=== PATIENT | male | born 2000 | race Caucasian/White ===

== ENCOUNTER 2021-02-28 16:01 | Emergency (ER) | payer MEDICARE, MEDICAID, SELFPAY ==
[2021-02-28 16:05] VITALS: BP 115/64; PULSE 99; RESP 18; TEMP 36.5; O2SAT 96; BMI 32.5
--- NOTE | 2021-02-28 16:55 | ED.WOUNDLAC ---
HPI - Wound/Laceration General Chief Complaint: Wound/Laceration Stated Complaint: ?Lac to the penis Time Seen by Provider: 02/28/21 16:55 Source: patient Mode of arrival: ambulatory Limitations: no limitations History of Present Illness HPI narrative: This is a 21-year-old male past medical history significant for autism presents to the emergency department with both his parents with concerns of cut on his penis X1 hours. Parents state that patient was inside inserted screaming my penis is bleeding . Parents state that he was playing dress up at the time, however this has happened to him before, previously he had been playing with himself they are unsure what he was doing this time. Parents state that they clean area, and there was a lot of active bleeding. Onset (ago): hour(s) (1) Location: genitals Place: home Context: other (unsure ) Associated symptoms: none Related Data Allergies Allergy/AdvReac Type Severity Reaction Status Date / Time From RITALIN Allergy Intermediate RASH Uncoded 02/28/21 16:04 Review of Systems Review of Systems: Yes Unobtainable due to mental status PMFSH Past Medical History Attestation statement: The following information was validated with the patient. Source: old records reviewed and nursing notes reviewed Social History Social History Advance Directives: No Advance Directives Information Provided: No Physical Exam Vital Signs: Vital Signs: Last Vital Signs Temp 97.7 F 02/28/21 16:05 Pulse 99 02/28/21 16:05 Resp 18 02/28/21 16:05 BP 115/64 02/28/21 16:05 Pulse Ox 96 02/28/21 16:05 Body Mass Index 32.5 Appearance: Alert. Oriented X3. No acute distress. ? No accessory muscle use Head: Normal external exam. Normocephalic. Atraumatic. ? Eyes: PERRLA. EOMI. Conjunctiva and sclera normal. Eyelids normal. ? ENT: Pharynx normal. Uvula midline. Moist mucous membranes. ? No trismus noted.? No drooling noted.? No muffled voice noted. Neck: ?Soft full range of motion, no JVD CVS: ?Heart regular rate and rhythm no murmurs and rubs Respiratory: ?Breath sounds are clear to auscultation bilaterally. No wheezing or stridor.? No accessory muscle use noted. Abdomen: ?Soft nontender no rebound or guarding positive bowel sounds Male : + small 2 cm linear laceration noted to the 11 oclock position underneat the burk of the glans penis. Uncircumcised normal male penis Skin: Skin warm and dry.? Normal skin color.? Normal skin turgor. No rashes/lesions/lacerations noted. Area is not bleeding. Patient does not report pain with palpation. Extremities: No lower extremity edema. ? Extremities exhibit normal range of motion.? Extremities nontender. Neuro: Oriented X 3.? No motor deficit.? No sensory deficit.? Reflexes normal Course Reevaluation(s) Reevaluation #1: Spoke to Dr. Cardenas he states this looks old based off of the picture. He recommends mupirocin ointment, and Xeroform gauze for 48 hours. Then a thin coat of Aquaphor twice a day for 2-3 weeks. Mupirocin and Xeroform will be applied to the area at this time. I will provide the parents with referral to Dr. Cohn office. Patient is safe for discharge home with PCP and Urology follow-up. Time: 17:03 Reevaluation #2: Dr. Birch evaluated patient at the bedside. He will see them outpatient. Patient is safe for discharge home, I explained to them discharge instructions. Patient will follow-up with Urology, the patient's primary care provider. Time: 17:48 MDM - Wound/Laceration MDM Narrative Medical decision making narrative: 1700 21-year-old male past medical history significant for autism presents to the emergency department with a laceration on his penis likely status post masturbation X1 hour. Parents both at the bedside who state that this has happened before. Upon physical examination patient appears well, no acute distress. Lungs are clear to auscultation. S1-S2 appreciated free of murmurs. A small 2 cm linear laceration noted to the 11 oclock position underneat the burk of the glans penis. Uncircumcised normal male penis. Plan at this time is to reach out to Urology for advice. Dr. Cardenas Critical Care Time Critical Care Time Critical Care Time: No Discharge Plan Discharge Clinical Impression: Laceration Patient Disposition: Home, Self-Care Additional Instructions: Apply Aquaphor to the area 2 times a day for 2-3 weeks. You can find this at the pharmacy Leave the dressing on his penis for 48 hours if possible Try to provide him lubricant for the area as needed Follow-up with your primary care provider this week and Urology Return to the emergency department with new or worsening symptoms. In case of emergency call 911 Referrals: Brian Cardenas MD [Physician] - 2 days Prosper Harper MD [Primary Care Provider] - 2 days
== END 2021-02-28 18:13 | disposition home or self-care (01) ==
PROVIDERS: Emergency Provider Emergency Medicine; PCP Pediatrics
DX: S31.21XA Laceration without foreign body of penis, initial encounter (principal); W45.8XXA Other foreign body or object entering through skin, initial encounter; F98.8 Other specified behavioral and emotional disorders with onset usually occurring in childhood and adolescence; F84.0 Autistic disorder; Y93.9 Activity, unspecified; Y92.019 Unspecified place in single-family (private) house as the place of occurrence of the external cause; Y99.9 Unspecified external cause status
CPT/HCPCS: 99283

== ENCOUNTER 2021-06-17 07:41 | Outpatient (REF) | payer MEDICARE, MEDICAID, SELFPAY ==
[2021-06-17 11:27] LABS: MANUAL DIFF FLAG NO
[2021-06-17 11:37] LABS: Basophils Percent Auto 0.6 % (0-2); Eosinophils Absolute Auto 0.2 X10*3/uL (0.0-0.4); Eosinophils Percent Auto 2.4 % (0-4); Hematocrit 48.6 % (42.0-52.0); Hemoglobin 16.4 g/dl (14.0-18.0); Imm Gran Abs Auto 0.05 X10*3/uL (0.00-0.03); Imm Gran Pct Auto 0.7 % (0.0-0.4); Lymphocytes Absolute Auto 2.6 X10*3/uL (1.2-4.9); Lymphocytes Percent Auto 36.7 % (20-40); Mean Corpuscular HGB Conc 33.7 g/dl (31.0-36.0); Mean Corpuscular Hemoglobin 29.5 pg (27.0-33.0); Mean Corpuscular Volume 87.4 fL (80.0-98.0); Mean Platelet Volume 10.7 fL (9.4-12.4); Monocytes Absolute Auto 0.5 X10*3/uL (0.1-1.2); Monocytes Percent Auto 7.1 % (2-11); Neutrophils Absolute Auto 3.7 x10*3/uL (2.0-8.3); Neutrophils Percent Auto 52.5 % (45-73); Platelet Count 217 X10*3/uL (160-400); Red Blood Count 5.56 X10*6/uL (4.60-5.80); Red Cell Distribution Width 11.8 % (11.0-16.0); White Blood Count 7.1 X10*3/uL (4.8-10.8)
[2021-06-17 12:17] LABS: Alanine Aminotransferase 53 U/L (0-40); Anion Gap 11 (12-20); Aspartate Amino Transferase 27 U/L (5-37); Blood Urea Nitrogen 10 mg/dL (9-16); Calcium 9.9 mg/dL (8.4-10.2); Carbon Dioxide 28 mmol/L (22-29); Chloride 106 mmol/L (96-108); Cholesterol 148 mg/dL; Estimated Glomerular Filt Rate > 60; Glucose Fasting 92 mg/dL (60-99); HDL Cholesterol 30 mg/dL; LDL Cholesterol Calculated 87 mg/dl; Potassium 4.7 mmol/L (3.3-5.1); Sodium 140 mmol/L (135-145); Triglycerides 159 mg/dL
== END 2021-06-17 07:42 | disposition home or self-care (01) ==
LOC: HO.HMGCLDS 07:41
PROVIDERS: Visit Provider Internal Medicine
DX: Z00.01 Encounter for general adult medical examination with abnormal findings (principal); F41.1 Generalized anxiety disorder; F41.0 Panic disorder [episodic paroxysmal anxiety]; E78.1 Pure hyperglyceridemia
CPT/HCPCS: 36415; 80048; 80061; 84450; 84460; 85025

== ENCOUNTER → 2021-08-07 08:38 | Outpatient (BNVA) | payer MEDICARE, MEDICAID, SELFPAY | PROVIDERS: PCP Internal Medicine; Visit Provider Urology | DX: N47.1 Phimosis (principal) | CPT/HCPCS: 99202 ==

== ENCOUNTER → 2021-09-19 10:45 | Outpatient (BNVA) | payer MEDICARE, MEDICAID, SELFPAY | PROVIDERS: PCP Internal Medicine; Visit Provider Urology | DX: N47.1 Phimosis (principal) | CPT/HCPCS: Q3014 ==

== ENCOUNTER 2021-09-30 09:24 | Day surgery (SDC) | payer MEDICARE, MEDICAID, SELFPAY ==
[2021-09-23 14:07] VITALS: BMI 33.0
[2021-09-24 10:20] VITALS: BMI 33.0
--- NOTE | 2021-09-27 09:02 | HO.ANESPROP2 ---
Documented by User: Nenita Hurley NP 09/27/21 09:05 HPI - Anesthesia Eval Consult details Narrative: 21yo M for Circumcision Autism/Dev Delay - mother signs consents [facility] Active Problems Active Problems: All Active Problems (Updated 08/07/21 @ 09:10 by Brian Cardenas MD) Phimosis (Acute) ADHD (attention deficit hyperactivity disorder), predominantly hyperactive impulsive type (Acute) DMDD (disruptive mood dysregulation disorder) (Acute) Autism spectrum disorder with accompanying language impairment and intellectual disability, requiring substantial support (Acute) Melanocytic nevus of trunk (Acute) Melanocytic nevi of scalp and neck (Acute) Xerosis cutis (Acute) Hypertriglyceridemia without hypercholesterolemia (Acute) Past Medical History Medical History (Updated 09/30/21 @ 10:35 by Karina Russ RN) ADHD Autism History of eye muscle disorder History of eye muscle disorder History of eye muscle disorder Family History Family History Other Adopted (not a blood relative) Surgical History Surgical History (Updated 09/30/21 @ 10:35 by Karina Russ RN) Hx of umbilical hernia repair Social History Social History Household Members Other:: Patient lives with mother Dora Housing: Apartment Are you a primary manager care management to a significant other at home: No Do you presently have visiting nurse or other home services: Yes ([employer] daily) Patient Tobacco Use Status: Never used Tobacco e-Cigarette/Vaping Use: Never Used service: No Current occupational status: student Meds Allergies Allergy/AdvReac Type Severity Reaction Status Date / Time From RITALIN Allergy Intermediate RASH Uncoded 09/30/21 10:33 Home Medications Medication Instructions Recorded Confirmed Last Taken Type alclometasone 0.05 % topical topical 06/13/21 07/07/21 Unknown History ointment clonidine HCl 0.1 mg tablet 0.1 mg PO BID 06/13/21 09/24/21 Unknown History clonidine HCl 0.2 mg tablet 0.2 mg PO BEDTIME 06/13/21 09/24/21 Unknown History dextroamphetamine-amphetamine ER 1 cap PO QAM 06/13/21 09/24/21 Unknown History 20 mg 24hr capsule,extend release docusate sodium 100 mg capsule 100 mg PO BEDTIME 06/13/21 09/24/21 Unknown History lorazepam 1 mg tablet 1 mg PO BID PRN Anxiety 06/13/21 09/24/21 09/30/21 History omeprazole 40 mg capsule,delayed 40 mg PO DAILY 06/13/21 09/24/21 Unknown History release polyethylene glycol 3350 17 17 g PO BID 06/13/21 07/07/21 Unknown History gram/dose oral powder (Gavilax) risperidone 4 mg tablet 4 mg PO BID 06/13/21 09/24/21 Unknown History tacrolimus 0.1 % topical ointment topical BID PRN Skin Irritation 06/13/21 07/07/21 Unknown History trazodone 150 mg tablet 150 - 300 mg PO BEDTIME PRN 06/13/21 09/24/21 Unknown History Insomnia ammonium lactate 12 % topical cream 1 appl topical BID 07/07/21 07/07/21 Unknown History triamcinolone acetonide 0.025 % topical 07/07/21 07/07/21 Unknown History lotion betamethasone dipropionate 0.05 % topical BID PRN 09/19/21 Unknown History lotion fluvoxamine 100 mg tablet 150 mg PO BEDTIME 09/19/21 09/24/21 Unknown History triamcinolone acetonide 0.5 % topical BID 09/19/21 Unknown History topical ointment Exam Exam Date and Time: September 27, 2021 0902 Height,Weight and Vital Signs: Height 5 ft 10 in Weight 104.326 kg Pertinent Lab Results Pertinent Lab Results: Laboratory Tests 06/17/21 06/17/21 07:50 07:50 WBC 7.1 Hgb 16.4 Hct 48.6 Plt Count 217 Sodium 140 Potassium 4.7 Chloride 106 Carbon Dioxide 28 BUN 10 Creatinine 1.07 Assessment and Plan Assessment Anesthesia Assessment: Chart Reviewed Documented by User: Jono Valdez MD 09/30/21 17:59 [facility] Past Medical History Medical History (Updated 09/30/21 @ 10:35 by Karina Russ RN) ADHD Autism History of eye muscle disorder History of eye muscle disorder History of eye muscle disorder Family History Family History Other Adopted (not a blood relative) Family history of problems with anesthesia: No Surgical History Surgical History (Updated 09/30/21 @ 10:35 by Karina Russ RN) Hx of umbilical hernia repair History of Problems with Anesthesia: No Social History Social History Household Members Other:: Patient lives with mother Dora Housing: Apartment Are you a primary manager care management to a significant other at home: No Do you presently have visiting nurse or other home services: Yes ([employer] daily) Patient Tobacco Use Status: Never used Tobacco e-Cigarette/Vaping Use: Never Used service: No Current occupational status: student Meds Allergies Allergy/AdvReac Type Severity Reaction Status Date / Time From RITALIN Allergy Intermediate RASH Uncoded 09/30/21 10:33 Home Medications Medication Instructions Recorded Confirmed Last Taken Type alclometasone 0.05 % topical topical 06/13/21 07/07/21 Unknown History ointment clonidine HCl 0.1 mg tablet 0.1 mg PO BID 06/13/21 09/24/21 Unknown History clonidine HCl 0.2 mg tablet 0.2 mg PO BEDTIME 06/13/21 09/24/21 Unknown History dextroamphetamine-amphetamine ER 1 cap PO QAM 06/13/21 09/24/21 Unknown History 20 mg 24hr capsule,extend release docusate sodium 100 mg capsule 100 mg PO BEDTIME 06/13/21 09/24/21 Unknown History lorazepam 1 mg tablet 1 mg PO BID PRN Anxiety 06/13/21 09/24/21 09/30/21 History omeprazole 40 mg capsule,delayed 40 mg PO DAILY 06/13/21 09/24/21 Unknown History release polyethylene glycol 3350 17 17 g PO BID 06/13/21 07/07/21 Unknown History gram/dose oral powder (Gavilax) risperidone 4 mg tablet 4 mg PO BID 06/13/21 09/24/21 Unknown History tacrolimus 0.1 % topical ointment topical BID PRN Skin Irritation 06/13/21 07/07/21 Unknown History trazodone 150 mg tablet 150 - 300 mg PO BEDTIME PRN 06/13/21 09/24/21 Unknown History Insomnia ammonium lactate 12 % topical cream 1 appl topical BID 07/07/21 07/07/21 Unknown History triamcinolone acetonide 0.025 % topical 07/07/21 07/07/21 Unknown History lotion betamethasone dipropionate 0.05 % topical BID PRN 09/19/21 Unknown History lotion fluvoxamine 100 mg tablet 150 mg PO BEDTIME 09/19/21 09/24/21 Unknown History triamcinolone acetonide 0.5 % topical BID 09/19/21 Unknown History topical ointment Exam Airway Mallampati Class: III TM Dist: >3cm Neck ROM: Full Loose/Missing/Broken Teeth: Yes Heart: S1,S2 Lungs: b/l breath sounds Assessment and Plan Assessment Anesthesia Assessment: Anesthesia Plan Discussed Final Anesthetic Review Family History of Problems with Anesthesia: No History of Problems with Anesthesia: No NPO: Yes ASA Class: II Final Preanesthetic Review: Meds/Allgs Chart Reviewed, Consent Obtained/Reviewed and Anes Risks/Benef Reviewed Patient Risk: Intermediate Procedure Risk: Intermediate Anesthetic Plan Anesthetic Plan: GA Disposition: Standard PACU
[2021-09-30 10:32] VITALS: BP 128/75; PULSE 84; RESP 18; TEMP 36.6; O2SAT 96
[2021-09-30] MEDS: Lactated Ringers 1,000 ML 100 ML IVCONT (10:36)
--- NOTE | 2021-09-30 10:48 | PC.NURSE ---
MOTHER PRESENT DURING ADMISSION. [employer]IAN[employer] PAPERWORK IN CHART
--- NOTE | 2021-09-30 11:56 | MHC.SHP ---
Pre-Procedural Eval Section A Date of Service: 09/30/21 The patient is an INPATIENT: No Changes since office visit: No Cold of Flu in the past 2 weeks, No New Medical Problems, No Changes in Medication and No Patient answered all questions The History & Physical has been completed within 30 days and I have reviewed it.: Yes Section B Chief Complaint: Phimosis Allergies: Allergies Allergy/AdvReac Type Severity Reaction Status Date / Time From RITALIN Allergy Intermediate RASH Uncoded 09/30/21 10:33 Plan Diagnosis/Plan: Unchanged (circumcision) I have reviewed the history and physical and performed a pertinent physical examination on my patient. No changes have occurred unless specified.
--- NOTE | 2021-09-30 13:05 | P.OP_ITS ---
Operative Note Operative Note Date of Service: 09/30/21 Narrative: PreOperative Diagnosis: Balanitis and phimosis Post Operative Diagnosis: Balanitis and phimosis Procedure: Circumcision Surgeon: Dr Brian Cardenas Anesthesia: General Indications for procedure: Recurring balanitis in inability to withdrawal foreskin of penile glans. Risks and benefits including bleeding, scarring, need for revision surgery been discussed. Procedure: After informed consent was verified the patient was brought to the operating room and placed in a supine position. Anesthesia was administered per protocol. The patient was prepped and draped sterile fashion. Safety pause time-out was performed. Antibiotics have been given. The penis was examined and proximal incision marked that lay just proximal to the resting position of the penile sulcus. This was followed around the circumference of the penis. A penile ring block was performed using 1% lidoca ine with no epinephrine. Approximately 8 cc. The proximal incision was developed with sharp blade running circumferentially around the penis. The skin was to give a 1 cm separation between the foreskin in the remaining penile shaft skin. The foreskin was withdrawn and the penile glans exposed. A a distal incision was made approximately 5 mm proximal to the penile sulcus. At the area of the frenulum care was taken to empty the penile frenulum intact. Using clamps the dorsal skin was elevated. Using Metzenbaum scissors the avascular plane was entered and proximal and distal incision were joined. The bridging skin was elevated and clamped. It was then divided using Bovie. The sleeve of tissue was then removed circumferentially around the penis using cautery in order to minimize bleeding. The shaft was then examined in any bleeding areas were controlled. More local anesthetic was injected into the plane beneath avascular plane to help with postprocedure pain management. The skin edges after they were appropriately examined low reapposed. A 3-0 chromic suture was placed at 12:00 o'clock and 06:00 o'clock positions. Interrupted 3-0 was then placed the 09:00 o'clock and 3 o'clock position. Each quadrant was then filled with 3 sutures using 4-0 chromic. At the completion of the procedure there was adequate hemostasis. The incision was washed and dried. Antibiotic cream was applied to the incision. A Monty wrap was applied followed by a Coban dressing. Xeroform gauze had been used to cover antibiotic ointment. He tolerated the procedure well and was extubated in the room and transferred in stable condition to the recovery area. Pathology: Foreskin Drains: none
[2021-09-30 13:15] VITALS: BP 121/61; PULSE 85; RESP 16; TEMP 36.2; O2SAT 96
[2021-09-30 13:20] VITALS: BP 109/55; PULSE 77; RESP 17; O2SAT 95
[2021-09-30 13:25] VITALS: BP 127/49; PULSE 76; RESP 17; O2SAT 98
[2021-09-30 13:30] VITALS: BP 123/81; PULSE 79; RESP 18; O2SAT 98
[2021-09-30 13:45] VITALS: BP 132/82; PULSE 80; RESP 18; TEMP 36.1; O2SAT 97
[2021-09-30] MEDS: Acetaminophen 325 MG TABLET 650 MG PO (13:53)
== END 2021-09-30 13:48 | disposition home or self-care (01) ==
PROVIDERS: PCP Internal Medicine; Visit Provider Urology
PROC: (CPT 54161; principal; 2021-09-30 11:00)
DX: N47.1 Phimosis (principal); N48.1 Balanitis; F90.1 Attention-deficit hyperactivity disorder, predominantly hyperactive type; F84.0 Autistic disorder; F79 Unspecified intellectual disabilities; R62.50 Unspecified lack of expected normal physiological development in childhood
CPT/HCPCS: 54161; 88304; J0690; J1100; J2250; J2405; J3010

== ENCOUNTER 2021-10-17 20:42 | Emergency (ER) | payer MEDICARE, MEDICAID, SELFPAY ==
[2021-10-17 20:49] VITALS: BP 111/84; PULSE 99; RESP 18; TEMP 36.7; O2SAT 97; BMI 33.1
== END 2021-10-17 21:23 | disposition left against medical advice (07) ==
LOC: HO.ED 21:22
PROVIDERS: Emergency Provider Emergency Medicine
DX: L55.9 Sunburn, unspecified (principal)
CPT/HCPCS: 99281

== ENCOUNTER → 2022-03-27 09:28 | Outpatient (BNVA) | payer MEDICARE, MEDICAID, SELFPAY | PROVIDERS: PCP Internal Medicine; Visit Provider Nurse Practitioner Family | DX: R06.81 Apnea, not elsewhere classified (principal); R06.89 Other abnormalities of breathing; G47.9 Sleep disorder, unspecified; F84.0 Autistic disorder | CPT/HCPCS: 99202 ==

== ENCOUNTER 2022-04-04 08:27 | Emergency (ER) | payer MEDICARE, MEDICAID, SELFPAY ==
[2022-04-04 08:51] VITALS: BP 137/84; PULSE 95; RESP 16; TEMP 36.4; O2SAT 94; BMI 33.0
[2022-04-04 10:39] LABS: MANUAL DIFF FLAG NO
[2022-04-04 10:42] VITALS: BP 116/69; PULSE 95; RESP 20; TEMP 37; O2SAT 94
[2022-04-04 10:42] LABS: Basophils Percent Auto 0.3 % (0-2); Eosinophils Absolute Auto 0.1 X10*3/uL (0.0-0.4); Eosinophils Percent Auto 0.8 % (0-4); Hematocrit 45.8 % (42.0-52.0); Hemoglobin 15.9 g/dl (14.0-18.0); Imm Gran Abs Auto 0.03 X10*3/uL (0.00-0.03); Imm Gran Pct Auto 0.4 % (0.0-0.4); Lymphocytes Percent Auto 13.4 % (20-40); Mean Corpuscular HGB Conc 34.7 g/dl (31.0-36.0); Mean Corpuscular Hemoglobin 29.2 pg (27.0-33.0); Mean Corpuscular Volume 84.2 fL (80.0-98.0); Mean Platelet Volume 10.1 fL (9.4-12.4); Neutrophils Absolute Auto 5.6 x10*3/uL (2.0-8.3); Neutrophils Percent Auto 72.1 % (45-73); Platelet Count 213 X10*3/uL (160-400); Red Blood Count 5.44 X10*6/uL (4.60-5.80); White Blood Count 7.7 X10*3/uL (4.8-10.8)
[2022-04-04 10:43] LABS: Appearance Urine Clear; Color Urine Dark Yellow; Glucose Urine UA Negative (Negative); Leukocyte Esterase Urine Negative (Negative); Nitrite Urine Negative (Negative); Specific Gravity - Urine 1.025 (1.005-1.025); Urine Blood Negative (Negative); Urine Ketones Trace mg/dL (Negative); Urine Protein Negative (Neg-Trace)
--- NOTE | 2022-04-04 10:50 | ED.ABDPAIN ---
HPI - Abdominal Pain General Chief Complaint: Abdominal Pain Stated Complaint: pain in stomach radiating to side Time Seen by Provider: 04/04/22 10:01 Source: patient and family (Mother) Mode of arrival: ambulatory History of Present Illness HPI narrative: History is provided by the mother. 22-year-old male who is autistic is brought in by his mother who has some concerns regarding decrease in appetite and complaints of abdominal pain but mother denies any nausea, vomiting, fever, chills. She states that her son does suffer from acid reflux and she attempted to give him 2 different types medication but this did not seem to help. Related Data Home Medications Medication Instructions Recorded Confirmed alclometasone 0.05 % topical topical 06/13/21 07/07/21 ointment clonidine HCl 0.1 mg tablet 0.1 mg PO BID 06/13/21 09/24/21 clonidine HCl 0.2 mg tablet 0.2 mg PO BEDTIME 06/13/21 09/24/21 dextroamphetamine-amphetamine ER 1 cap PO QAM 06/13/21 09/24/21 20 mg 24hr capsule,extend release docusate sodium 100 mg capsule 100 mg PO BEDTIME 06/13/21 09/24/21 lorazepam 1 mg tablet 1 mg PO BID PRN Anxiety 06/13/21 09/24/21 polyethylene glycol 3350 17 17 g PO BID 06/13/21 07/07/21 gram/dose oral powder (Gavilax) risperidone 4 mg tablet 4 mg PO BID 06/13/21 09/24/21 tacrolimus 0.1 % topical ointment topical BID PRN Skin Irritation 06/13/21 07/07/21 trazodone 150 mg tablet 150 - 300 mg PO BEDTIME PRN 06/13/21 09/24/21 Insomnia triamcinolone acetonide 0.5 % topical BID 09/19/21 topical ointment dextroamphetamine-amphetamine ER 1 cap PO DAILY 11/08/21 30 mg 24hr capsule,extend release cephalexin 500 mg capsule 500 mg PO TID 03/27/22 dupilumab 300 mg/2 mL subcutaneous 300 mg subcut Q2W 03/27/22 pen injector ([employer]) fluvoxamine 150 mg 150 mg PO BEDTIME 03/27/22 capsule,extended release 24 hr Previous Rx's Medication Instructions Recorded fluticasone propionate 50 2 spray intranasal DAILY PRN nasal 03/10/22 mcg/actuation nasal congestion #16 grams spray,suspension Allergies Allergy/AdvReac Type Severity Reaction Status Date / Time enviormental allergies Allergy Intermediate sinus Uncoded 03/27/22 10:03 pressure sneezing From RITALIN Allergy Intermediate RASH Uncoded 03/27/22 10:03 Review of Systems Review of Systems Pertinent positives and negatives as stated in HPI and 10 point review of systems is otherwise negative. PMFSH Past Medical History Source: nursing notes reviewed Medical History ADHD ADHD (attention deficit hyperactivity disorder), predominantly hyperactive impulsive type Autism Autism spectrum disorder with accompanying language impairment and intellectual disability, requiring substantial support Disturbance in sleep behavior DMDD (disruptive mood dysregulation disorder) Grunting respiration History of eye muscle disorder History of eye muscle disorder History of eye muscle disorder Hypertriglyceridemia without hypercholesterolemia Melanocytic nevi of scalp and neck Melanocytic nevus of trunk Witnessed apneic spells Xerosis cutis Surgical History Hx of umbilical hernia repair Family History Family History Other Adopted (not a blood relative) Social History Social History Household Members Other:: Patient lives with mother Dora Housing: Apartment Are you a primary transitional care nurse to a significant other at home: No Do you presently have visiting nurse or other home services: Yes ([employer] daily) Patient Tobacco Use Status: Never used Tobacco Smoked in Last 30 Days: No e-Cigarette/Vaping Use: Never Used Use of substances other than those prescribed or required for medical reasons: No Advance Directives: No service: No Current occupational status: student Cognitive needs: Yes Hearing needs: No Vision needs: No Physical Exam ED Vital Signs: Vital Signs - 24 hr 04/04/22 08:51 04/04/22 10:42 Temperature 97.5 F 98.6 F Pulse Rate 95 95 Respiratory Rate 16 20 Blood Pressure 137/84 116/69 Pulse Oximetry 94 94 Oxygen Delivery Method Room Air Room Air BMI result Body Mass Index 33.0 VITAL SIGNS: Reviewed. GENERAL: Well developed, well nourished, in no acute distress. HEAD: Normocephalic/atraumatic EYES: PERRLA, EOMI EARS: Ext canals without abnormality, TMs non-bulging and non-erythematous NOSE: Nares patent bilateral OROPHARYNX: no oral lesions noted, posterior pharynx clear and non-erythematous without noted tonsillar enlargement/erythema/exudates NECK: Supple, no adenopathy LUNGS: Normal breath sounds. No adventitious sounds or accessory muscle use. SpO2<94> CARDIOVASCULAR: Regular rate and rhythm without noted murmurs ABDOMEN: Soft, diffusely tender but maximal in right lower quadrant, non-distended with bowel sounds. MUSCULOSKELETAL: No tenderness, deformities, or effusions noted on gross inspection. EXTREMITIES: No cyanosis, clubbing or edema. SKIN: Inspection of the skin reveals no rashes, tactile fever. NEUROLOGIC: Alert and oriented x 3. Strength and sensation to light touch were grossly intact x 4. Course Course Course Narrative: I reviewed all lab work, imaging, viral testing and there are no acute findings to better explain patient's presentation. These results were discussed with the mother at bedside. He is otherwise discharged home in stable condition. Medical Decision Making Medical Decision Making [facility] Narrative: 22-year-old male with history and clinical presentation with some challenges in obtaining clinical exam, appears to be primarily tenderness on palpation the right lower quadrant and no diarrhea so favor possible appendicitis or constipation verses gastroenteritis Differential Diagnosis Differential Diagnoses: The differential diagnosis associated with the presentation includes Appendicitis, constipation, renal colic, less likely SBO/diverticulitis Lab Data [facility] Lab Attestation statement: I reviewed the patient's lab results. There are no acute findings to suggest acute infection, anemia, electrolyte abnormality. And viral testing is negative for COVID and influenza. Result Diagrams: 04/04/22 10:32 04/04/22 10:32 Labs: Lab Results 04/04/22 04/04/22 04/04/22 Range/Units 10:32 10:32 10:32 WBC 7.7 (4.8-10.8) X10*3/uL RBC 5.44 (4.60-5.80) X10*6/uL Hgb 15.9 (14.0-18.0) g/dl Hct 45.8 (42.0-52.0) % MCV 84.2 (80.0-98.0) fL MCH 29.2 (27.0-33.0) pg MCHC 34.7 (31.0-36.0) g/dl RDW 12.0 (11.0-16.0) % Plt Count 213 (160-400) X10*3/uL MPV 10.1 (9.4-12.4) fL Immature Gran % (Auto) 0.4 (0.0-0.4) % Neut % (Auto) 72.1 (45-73) % Lymph % (Auto) 13.4 L (20-40) % [place] % (Auto) 13.0 H (2-11) % Eos % (Auto) 0.8 (0-4) % Baso % (Auto) 0.3 (0-2) % Lymph # (Auto) 1.0 L (1.2-4.9) X10*3/uL [place] # (Auto) 1.0 (0.1-1.2) X10*3/uL Eos # (Auto) 0.1 (0.0-0.4) X10*3/uL Baso # (Auto) 0.0 (0.0-0.2) X10*3/uL Abs Immat Gran (auto) 0.03 (0.00-0.03) X10*3/uL Absolute Neuts (auto) 5.6 (2.0-8.3) x10*3/uL Absolute Nucleated RBC 0.000 (0.0-0.012) X10*3/uL Nucleated RBC % (auto) 0.0 (0.0-0.2) /100WBC Sodium 139 (135-145) mmol/L Potassium 4.5 (3.3-5.1) mmol/L Chloride 106 (96-108) mmol/L Carbon Dioxide 25 (22-29) mmol/L Anion Gap 13 (12-20) BUN 12 (9-16) mg/dL Creatinine 0.95 (0.5-1.4) mg/dL Estim Creat Clear Calc 148.8 Estimated GFR > 60 Random Glucose 86 (60-115) mg/dL Calcium 9.6 (8.4-10.2) mg/dL Total Bilirubin 0.7 (0.0-1.0) mg/dL AST 86 H (5-37) U/L ALT 83 H (0-40) U/L Alkaline Phosphatase 115 (39-117) U/L Total Protein 7.1 (6.5-8.0) g/dL Albumin 4.3 (3.5-5.0) g/dL Lipase 14 (8-78) U/L Urine Color Dark Yellow Urine Appearance Clear Urine pH 7.0 (5.0-9.0) Ur Specific [place] 1.025 (1.005-1.025) Urine Protein Negative (Neg-Trace) mg/dL Urine Glucose (UA) Negative (Negative) mg/dL Urine Ketones Trace (Negative) mg/dL Urine Blood Negative (Negative) Urine Nitrite Negative (Negative) Ur Leukocyte Esterase Negative (Negative) Radiology Impression Radiologist Impression: My interpretation agrees with radiology impression of CT abdomen and pelvis. Independent Historian Clinical information obtained from an independent historian. History obtained from or confirmed by: Parent History primarily obtained from the mother. External Record Review External record reviewed: Prior outpatient labs Discharge Plan Discharge Clinical Impression: Abdominal discomfort Patient Disposition: Home, Self-Care Instructions: Abdominal Pain (ED) Additional Instructions: 1. Resume all home medications as prescribed. 2. Follow-up with the primary care provider on Thursday morning. Return to the ER for worsening symptoms. Prescriptions: No Action fluticasone propionate 50 mcg/actuation spray,suspension 2 spray intranasal DAILY PRN (Reason: nasal congestion) Qty: 16 1RF clonidine HCl 0.1 mg tablet 0.1 mg PO BID risperidone 4 mg tablet 4 mg PO BID dextroamphetamine-amphetamine 20 mg capsule,extended release 24hr 1 cap PO QAM trazodone 150 mg tablet 150 - 300 mg PO BEDTIME PRN (Reason: Insomnia) clonidine HCl 0.2 mg tablet 0.2 mg PO BEDTIME polyethylene glycol 3350 [Gavilax] 17 gram/dose powder 17 g PO BID docusate sodium 100 mg capsule 100 mg PO BEDTIME alclometasone 0.05 % ointment topical tacrolimus 0.1 % ointment topical BID PRN (Reason: Skin Irritation) lorazepam 1 mg tablet 1 mg PO BID PRN (Reason: Anxiety) triamcinolone acetonide 0.5 % ointment topical BID dextroamphetamine-amphetamine 30 mg capsule,extended release 24hr 1 cap PO DAILY Dupixent Pen 300 mg/2 mL pen injector 300 mg subcut Q2W fluvoxamine 150 mg capsule,extended release 24hr 150 mg PO BEDTIME cephalexin 500 mg capsule 500 mg PO TID Referrals: Brynn Christianson MD [Primary Care Provider] -
[2022-04-04 11:16] LABS: Alanine Aminotransferase 83 U/L (0-40); Albumin Level 4.3 g/dL (3.5-5.0); Alkaline Phosphatase 115 U/L (39-117); Anion Gap 13 (12-20); Aspartate Amino Transferase 86 U/L (5-37); Bilirubin Total 0.7 mg/dL (0.0-1.0); Blood Urea Nitrogen 12 mg/dL (9-16); Calcium 9.6 mg/dL (8.4-10.2); Carbon Dioxide 25 mmol/L (22-29); Chloride 106 mmol/L (96-108); Creatinine Clr Calc Pharmacy 148.8; Estimated Glomerular Filt Rate > 60; Glucose Random 86 mg/dL (60-115); Lipase 14 U/L (8-78); Potassium 4.5 mmol/L (3.3-5.1); Sodium 139 mmol/L (135-145); Total Protein 7.1 g/dL (6.5-8.0)
[2022-04-04 12:48] LABS: IDNOW Serial# BCCEAD1C; Influenza A Negative (Negative); Influenza B2 Negative (Negative)
[2022-04-04 12:49] LABS: COVID-19 Test Negative (Negative); IDNOW Serial# 16C4AD1C
== END 2022-04-04 12:54 | disposition home or self-care (01) ==
PROVIDERS: Emergency Provider Student in an Organized Health Care Education/Training Program; PCP Internal Medicine
DX: R10.13 Epigastric pain (principal); Z20.822 Contact with and (suspected) exposure to COVID-19; Z79.899 Other long term (current) drug therapy
CPT/HCPCS: 36415; 74176; 80053; 81003; 83690; 85025; 87502; 87635; 99284

== ENCOUNTER → 2022-07-18 21:09 | Outpatient (REF) | payer MEDICARE, MEDICAID, SELFPAY | LOC: HO.SL 21:09 | PROVIDERS: PCP Internal Medicine; Visit Provider Nurse Practitioner Family | DX: G47.9 Sleep disorder, unspecified (principal); R06.81 Apnea, not elsewhere classified; R06.89 Other abnormalities of breathing; F80.4 Speech and language development delay due to hearing loss | CPT/HCPCS: 95810 ==

== ENCOUNTER → 2022-08-15 15:14 | Outpatient (BNVA) | payer MEDICARE, MEDICAID, SELFPAY | PROVIDERS: PCP Internal Medicine; Visit Provider Nurse Practitioner Family | DX: G47.9 Sleep disorder, unspecified (principal) | CPT/HCPCS: 99212 ==

== ENCOUNTER 2023-01-16 08:03 | Outpatient (AMB) | payer OTHER, SELFPAY ==
[2023-01-16 08:18] VITALS: BP 110/68; PULSE 98; TEMP 36.4; O2SAT 97; BMI 35.0
--- NOTE | 2023-01-16 08:18 | MHC.OFFWIV ---
Intake Vital Signs 01/16/23 08:18 Height 5 ft 10 in Weight 244 lb BMI 35.0 BP 110/68 Blood Pressure Location Lt brachial Position Sitting Pulse 98 Pulse Source Pulse Oximeter Temp 97.6 F Temp Source Temporal Artery Scan Pulse Oximetry (%) 97 Intake Visit Reasons: Est/bit on left arm swelling/painful Intake Note: pt is here for c/o possible spider bite on left arm, red with swelling Patient Tobacco Use Status: Never used Tobacco Allergies enviormental allergies Allergy (Intermediate, Uncoded 01/16/23 08:19) sinus pressure sneezing From RITALIN Allergy (Intermediate, Uncoded 01/16/23 08:19) RASH Do you need a note to return to daycare/school/sports/work: Yes HPI HPI Comments History of Present Illness Details This is a 22-year-old male who presents to the office today for sick visit. Patient complaining of a possible spider bite on his left arm. His caregiver states that she noticed a small area of erythema and swelling on his left arm approximately 3 days ago. She states that the erythema and swelling have been worsening since then. He denies any fever/chills, chest pain, shortness of breath, abdominal pain, nausea/ vomiting /diarrhea, or muscle weakness. [facility] Medical History (Updated 08/20/22 @ 15:39 by Lele Case CNP) Witnessed apneic spells Grunting respiration Disturbance in sleep behavior History of eye muscle disorder History of eye muscle disorder History of eye muscle disorder ADHD (attention deficit hyperactivity disorder), predominantly hyperactive impulsive type ADHD DMDD (disruptive mood dysregulation disorder) Autism spectrum disorder with accompanying language impairment and intellectual disability, requiring substantial support Melanocytic nevus of trunk Melanocytic nevi of scalp and neck Xerosis cutis Hypertriglyceridemia without hypercholesterolemia Autism Surgical History (Updated 08/15/22 @ 15:23 by SARAH Moss) H/O circumcision Hx of umbilical hernia repair Family History Other Adopted (not a blood relative) Social History Household Members Other:: Patient lives with mother Dora Housing: Apartment Are you a primary adult daycare coordinator to a significant other at home: No Do you presently have visiting nurse or other home services: Yes ([employer] daily) Patient Tobacco Use Status: Never used Tobacco e-Cigarette/Vaping Use: Never Used service: No Current occupational status: student Cognitive needs: Yes Hearing needs: No Vision needs: No Review of Systems Const All systems reviewed & are unremarkable except as noted in HPI and below Reports no additional complaints Eyes Reports no additional complaints ENT Reports no additional complaints Card Reports no additional complaints Resp Reports no additional complaints GI Reports no additional complaints Reports no additional complaints Musc Reports no additional complaints Skin/Breast Reports system reviewed and no additional complaints, except as documented Neuro Reports no additional complaints Psych Reports no additional complaints Endo Reports no additional complaints Roc/Lymph Reports no additional complaints Aller/Immun Reports no additional complaints Physical Exam Vital Signs: Last Vital Signs Temp 97.6 F 01/16/23 08:18 Pulse 98 01/16/23 08:18 BP 110/68 01/16/23 08:18 Pulse Ox 97 01/16/23 08:18 BMI result Body Mass Index 35.0 Const Other: Vital signs reviewed. Constitutional: Non-toxic appearing. No acute distress. Well-developed and well-nourished. HEENT: Normocephalic and atraumatic. Tympanic membranes without erythema, edema, or bulging bilaterally. External auditory canals without erythema or edema bilaterally. Moist mucous membranes. No pharyngeal erythema or exudates. Skin: Circular area of erythema measuring approximately 3 x 3 cm with central scabbing on left forearm, no fluctuance or induration. No drainage. No lymphangitic streaking. Neck: Full and painless range of motion. No cervical lymphadenopathy. Cardio: Regular rate. No lower extremity edema. No JVD. Pulmonary: No respiratory distress. No accessory muscle usage. Gastrointestinal: Soft, nontender, and nondistended in all 4 quadrants. Musculoskeletal: Normal range of motion in joints throughout the body. No deformity or other signs of injury. Neuro: Alert and oriented x4. Cranial nerves 2-12 grossly intact. No focal deficits appreciated. Psych: +Autistic. Assessment & Plan Assessment & Plan (1) Cellulitis of left upper extremity: Code(s): L03.114 - Cellulitis of left upper limb Plan: This is a 22-year-old male presenting to the office with swelling and erythema of his left arm in the setting of suspected spider bite. History and physical most consistent with cellulitis of the left upper extremity. No fluctuance or induration to suggest abscess. No purulent drainage. No lymphangitic streaking. Patient's vital signs are stable, his physical exam is otherwise benign, and he is overall nontoxic appearing. Patient has no evidence of a systemic infection. Patient sent home on PO cephalexin 500 mg 4 times daily x7 days. His caregiver was instructed to follow-up here or proceed to the emergency room if he were to develop fever/ chills, other systemic symptoms,lymphangitic streaking, or worsening symptoms. Patient's caregiver verbalized understanding and is agreeable with the plan. Medications: New cephalexin 500 mg PO QID 28 caps 0RF Coding Level of Care Code Est Pt Level 3 (31399) Diagnoses Cellulitis of left upper extremity L03.114
== END 2023-01-16 08:52 | disposition home or self-care (01) ==
PROVIDERS: PCP Internal Medicine; Visit Provider Physician Assistant Medical
DX: L03.114 Cellulitis of left upper limb (principal)
CPT/HCPCS: 99213

== ENCOUNTER 2023-05-19 08:10 | Outpatient (AMB) | payer OTHER, SELFPAY ==
--- NOTE | 2023-05-19 08:37 | MHC.PC.OV ---
Vital Signs 05/19/23 08:40 Height 5 ft 10 in Weight 243 lb BMI 34.9 BP 100/68 Blood Pressure Location Lt brachial Position Sitting Pulse 103 H Pulse Source Pulse Oximeter Pulse Oximetry (%) 96 Oxygen Delivery Method Room Air Intake Visit Reasons: Adult CPE Male 18-49 Intake Note: Pt is here today for his PE Allergies enviormental allergies Allergy (Intermediate, Uncoded 10/12/23 23:52) sinus pressure sneezing From RITALIN Allergy (Intermediate, Uncoded 10/12/23 23:52) RASH Medication List - Last Reconciled 05/19/23 by Brynn Christianson MD alclometasone 0.05% topical clonidine HCl 0.1 mg PO BID clonidine HCl 0.2 mg PO BEDTIME dextroamphetamine-amphetamine 20 mg ER 1 cap PO QAM dextroamphetamine-amphetamine 30 mg ER 1 cap PO DAILY docusate sodium 100 mg PO BEDTIME dupilumab (Dupixent) 300 mg subcut Q2W fluticasone propionate 50 mcg/actuation 2 sprays intranasal DAILY PRN fluvoxamine ER 150 mg PO BEDTIME levocetirizine 5 mg PO DAILY lithium carbonate ER 300 mg PO BID risperidone 4 mg PO BID tacrolimus 0.1% topical BID PRN trazodone 150 - 300 mg PO BEDTIME PRN triamcinolone acetonide 0.5% topical BID Tobacco use date assessed: 05/19/23 Dental Screening Dental Screen Date: 05/19/23 Did you have a dental visit in the last 12 months?: Yes Did you have a dental problem in the last 6 months where you did not have access to dental care?: No Was dental information given to patient?: Patient has dentist HPI Encounter for routine adult health examination HPI Details 23 year old male with Autism, presenting with language impairment and intellectual disability, ADHD, disruptive mood dysregulation disorder, currently being followed at [facility] here today for a physical exam. He currently sees Dr Jesus and and is being treated for Eczema and xerosis cutis. He is accompanied today by his mother who states that patient has difficulty initiating and staying asleep. He sleep study has already been done which did not meet any criteria for sleep apnea. He was provided with Sleep hygiene education, advised patient to limit screen time before bedtime, and limit caffeine intake in the evening, and having routine sleep schedule, routine bedtime and wake up time., and encouraged to increase physical activity during daytime. [facility] Medical History (Updated 10/13/23 @ 00:19 by Brynn Christianson MD) Eczema History of eye muscle disorder ADHD (attention deficit hyperactivity disorder), predominantly hyperactive impulsive type ADHD DMDD (disruptive mood dysregulation disorder) Autism spectrum disorder with accompanying language impairment and intellectual disability, requiring substantial support Melanocytic nevus of trunk Melanocytic nevi of scalp and neck Xerosis cutis Hypertriglyceridemia without hypercholesterolemia Autism Surgical History H/O circumcision Hx of umbilical hernia repair Family History Other Adopted (not a blood relative) Social History Household Members Other:: Patient lives with mother Dora Housing: Apartment Are you a primary complex care nurse practitioner to a significant other at home: No Do you presently have visiting nurse or other home services: Yes ([employer] daily) Patient Tobacco Use Status: Never used Tobacco Smoked in Last 30 Days: No e-Cigarette/Vaping Use: Never Used Use of substances other than those prescribed or required for medical reasons: No Advance Directives: No Advance Directives Information Provided: No service: No Current occupational status: student Cognitive needs: Yes Hearing needs: No Vision needs: No Questionnaire PHQ-9 Over the last 2 weeks, how often have you been bothered by any of the following problems? 1. Little interest or pleasure in doing things: several days 2. Feeling down, depressed, or hopeless: not at all 3. Trouble falling or staying asleep, or sleeping too much: more than half the days 4. Feeling tired or having little energy: not at all 5. Poor appetite or overeating: nearly every day 6. Feeling bad about yourself - or that you are a failure or have let yourself or your family down: not at all 7. Trouble concentrating on things, such as reading the newspaper or watching television: nearly every day 8. Moving or speaking so slowly that other people could have noticed. Or the opposite - being so fidgety or restless that you have been moving around a lot more than usual: nearly every day 9. Thoughts that you would be better off or of hurting yourself in some way: not at all Total score: 12 Depression Screening Interpretation: Positive (dayami Magaña at [facility] and Kermit Martinez at [facility]) Depression Screening Done: Yes 26085 - PHQ-9 Billing: Yes Source: Developed by Drs. Brian Hannah, Liz Thomas, Ananda Morse and colleagues, with an educational tigre from [employer]. Thrive Questionnaire Date Thrive assessed: 05/19/23 I am a: Parent/Caregiver What is your living situation today?: I have a steady place to live Within the past 12 months, did the food you bought not last and you didn't have the money to get more?: Never true Within the past 12 months, did you worry whether your food would run out before you got money to buy more?: Never true Do you have trouble paying for medicines?: No Do you have trouble getting transportation to medical appointments?: No Do you have trouble paying your heating and electricity bill?: No Do you have trouble taking care of your child, family member or friend?: No Do you have trouble with day-to-day activities such as bathing, preparing meals, shopping, managing finances, etc.?: No Are you currently unemployed and looking for a job?: Yes Are you interested in more education?: No THRIVE Score: 0 AUDIT C Alcohol Use Questionnaire (AUDIT-C) 1. How often do you have a drink containing alcohol?: Never Total Score: 0 KRYSTA-7 AMB Questionnaire KRYSTA-7 Date KRYSTA - 7 assessed: 05/19/23 Feeling nervous, anxious, or on edge: 2 = More than half the days Not being able to stop or control worryin = More than half the days Worrying too much about different things: 2 = More than half the days Trouble relaxin = More than half the days Being so restless that it is hard to sit still: 2 = More than half the days Becoming easily annoyed or irritable: 3 = Nearly every day Feeling afraid as if something awful might happen: 2 = More than half the days Total KRYSTA-7 score (0-4 normal; 5-9 mild; 10-14 moderate; 15-21 severe): 15 Source: Developed by Drs. Brian Hannah, Liz Thomas, Ananda Morse and colleagues, with an educational tigre from [employer]. KRYSTA-7 Assessment Billing KRYSTA-7 Assessment Tool: KRYSTA-7 Assessment 88259 Review of Systems Const All systems reviewed & are unremarkable except as noted in HPI and below Reports no additional complaints Eyes Reports no additional complaints ENT Reports no additional complaints Card Reports no additional complaints Resp Reports no additional complaints GI Reports no additional complaints Reports no additional complaints Musc Reports no additional complaints Skin/Breast Reports system reviewed and no additional complaints, except as documented Neuro Reports no additional complaints Psych Reports no additional complaints Endo Reports no additional complaints Roc/Lymph Reports no additional complaints Aller/Immun Reports no additional complaints Physical exam (Primary Care) Vital Signs: Last Vital Signs Pulse 103 H 05/19/23 08:40 BP 100/68 05/19/23 08:40 Pulse Ox 96 05/19/23 08:40 Oxygen Delivery Method Room Air 05/19/23 08:40 BMI result Body Mass Index 34.9 Tobacco/Smoking Status: Tobacco use Status Tobacco use date assessed 05/19/23 05/19/23 08:41 Patient Tobacco Use Status Never used Tobacco 05/19/23 08:41 e-Cigarette/Vaping Use Never Used 05/19/23 08:41 PHQ-9: PHQ-9 Score PHQ-9: Total score 12 05/19/23 10:11 Depression Screening Interpretation: Positive (dayami Magaña at [facility] and Kermit Martinez at [facility]) Thrive Assessment: Date of Thrive Assessment Date Thrive assessed 05/19/23 05/19/23 08:52 Const General: comfortable, no acute distress and alert Orientation/consciousness: oriented to person [facility] Head: Yes normocephalic and Yes atraumatic Ears: external ears normal and TM's normal bilaterally General nose exam: Normal external nose present and No nasal discharge present Face and sinus: Yes face symmetric Mouth: Normal oral and palatal mucosa present and moist mucous membranes Eyes General: appearance normal, both eyes and all related structures Neck Neck: Yes full ROM, Yes no lymphadenopathy and Yes supple Thyroid: Thyroid normal Resp Auscultation: clear to auscultation bilaterally Cardio Other: S1-S2 present regular rate and rhythm GI Palpation (GI): Soft to palpation, nontender and no guarding Auscultation: normal bowel sounds Skin General skin exam: no rashes or lesions noted Neuro General: oriented to person, moves all extremities and no focal motor deficits Assessment and Plan Assessment & Plan (1) Annual visit for general adult medical examination with abnormal findings: Code(s): Z00.01 - Encounter for general adult medical examination with abnormal findings Plan: Will check appropriate labs. Recommended dental visit every 6 months and regular eye exams, at least every 2 years. Take adequate calcium in diet and vitamin-D 3 at 2000 IU per cap once a day, in addition to weight-bearing exercises to help maintain good muscle tone and weight control. Instructed to do self-testicular exam check for any mass. He is up-to-date with his vaccines including COVID vaccine, gets yearly flu shot and up-to-date with his Tdap. (2) Encounter for routine adult health examination: Code(s): Z00.00 - Encounter for general adult medical examination without abnormal findings (3) Disturbance in sleep behavior: Code(s): G47.9 - Sleep disorder, unspecified Plan: He has already been evaluated to do sleep clinic with no obstructive sleep apnea seen. Discussed with mother proper sleep hygiene, avoid electronics especially just before bedtime and avoid any caffeinated drinks night (4) Hypertriglyceridemia without hypercholesterolemia: Code(s): E78.1 - Pure hyperglyceridemia Plan: Fasting lipid panel ordered (5) Autism spectrum disorder with accompanying language impairment and intellectual disability, requiring substantial support: Comment: sees Dr Armando Diaz at [facility] Code(s): F84.0 - Autistic disorder Plan: Followed by behavioral health clinic at [facility] (6) DMDD (disruptive mood dysregulation disorder): Code(s): F34.81 - Disruptive mood dysregulation disorder Plan: Followed by [facility] (7) ADHD (attention deficit hyperactivity disorder), predominantly hyperactive impulsive type: Code(s): F90.1 - Attention-deficit hyperactivity disorder, predominantly hyperactive type Plan: Currently on Adderall ER 20 mg (8) Eczema: Code(s): L30.9 - Dermatitis, unspecified Qualifiers: Eczema type: unspecified Qualified Code(s): L30.9 - Dermatitis, unspecified Plan: Currently sees Dr. Jesus who history him for his eczema, receiving Dupixent 300 mg subcutaneously given and every 2 weeks Coding Level of Care Code Est Pt Prev Care 18-39y(98919) Diagnoses Annual visit for general adult medical examination with abnormal findings Z00.01 Encounter for routine adult health examination Z00.00 Disturbance in sleep behavior G47.9 Hypertriglyceridemia without hypercholesterolemia E78.1 Autism spectrum disorder with accompanying language impairment and intellectual disability, requiring substantial support F84.0 DMDD (disruptive mood dysregulation disorder) F34.81 ADHD (attention deficit hyperactivity disorder), predominantly hyperactive impulsive type F90.1 Eczema, unspecified type L30.9 Eczema type: unspecified Additional Codes KRYSTA-7 Assessment Billing - KRYSTA-7 Assessment Tool: KRYSTA-7 Assessment [id number] ([id number])
[2023-05-19 08:40] VITALS: BP 100/68; PULSE 103; O2SAT 96; BMI 34.9
== END 2023-05-19 10:20 | disposition home or self-care (01) ==
PROVIDERS: PCP Internal Medicine; Visit Provider Internal Medicine
DX: Z00.01 Encounter for general adult medical examination with abnormal findings (principal); Z00.00 Encounter for general adult medical examination without abnormal findings; G47.9 Sleep disorder, unspecified; E78.1 Pure hyperglyceridemia; F84.0 Autistic disorder; F34.81 Disruptive mood dysregulation disorder; F90.1 Attention-deficit hyperactivity disorder, predominantly hyperactive type; L30.9 Dermatitis, unspecified
CPT/HCPCS: 99499

== ENCOUNTER 2023-07-20 19:59 | Emergency (ER) | payer OTHER, SELFPAY ==
[2023-07-20 20:20] VITALS: BP 118/75; PULSE 86; RESP 16; TEMP 36.6; O2SAT 97; BMI 34.7
[2023-07-20 21:08] LABS: MANUAL DIFF FLAG NO
[2023-07-20 21:12] LABS: Basophils Absolute Auto 0.1 X10*3/uL (0.0-0.2); Basophils Percent Auto 0.4 % (0-2); Eosinophils Absolute Auto 0.2 X10*3/uL (0.0-0.4); Eosinophils Percent Auto 1.4 % (0-4); Hematocrit 43.6 % (42.0-52.0); Hemoglobin 14.9 g/dl (14.0-18.0); Imm Gran Abs Auto 0.06 X10*3/uL (0.00-0.03); Imm Gran Pct Auto 0.5 % (0.0-0.4); Lymphocytes Absolute Auto 3.3 X10*3/uL (1.2-4.9); Mean Corpuscular HGB Conc 34.2 g/dl (31.0-36.0); Mean Corpuscular Volume 84.8 fL (80.0-98.0); Monocytes Percent Auto 7.8 % (2-11); Neutrophils Percent Auto 63.9 % (45-73); Platelet Count 250 X10*3/uL (160-400); Red Blood Count 5.14 X10*6/uL (4.60-5.80); Red Cell Distribution Width 11.9 % (11.0-16.0); White Blood Count 12.5 X10*3/uL (4.8-10.8)
[2023-07-20 21:24] LABS: Alanine Aminotransferase 27 U/L (0-40); Albumin Level 4.3 g/dL (3.5-5.0); Alkaline Phosphatase 84 U/L (39-117); Anion Gap 10 (12-20); Aspartate Amino Transferase 21 U/L (5-37); Bilirubin Total 0.3 mg/dL (0.0-1.0); Blood Urea Nitrogen 13 mg/dL (9-16); Calcium 9.5 mg/dL (8.4-10.2); Carbon Dioxide 26 mmol/L (22-29); Chloride 107 mmol/L (96-108); Creatinine Clr Calc Pharmacy 155.7; Estimated Glomerular Filt Rate > 60; Glucose Random 105 mg/dL (60-115); Potassium 3.7 mmol/L (3.3-5.1); Sodium 139 mmol/L (135-145); Total Protein 7.4 g/dL (6.5-8.0)
[2023-07-20 21:58] VITALS: BP 112/68; PULSE 62; RESP 16; TEMP 36.4; O2SAT 97
--- OUTSIDE RECORDS SUMMARY | 2023-07-20 21:59 | XMS_ITS | Continuity of Care Document ---
Author Organization [facility] Address [address] [place] [id number]- Care Team Providers Care Sales Analytics Manager Name Role Phone Leroy SENIOR, Prosper Woodruff Primary Care Physician Encounter [facility] Date(s): 12/08/19 - 01/07/20 [facility] [address] [place] [id number]- Allergies, Adverse Reactions, Alerts Substance Reaction Severity Status Ritalin vomits Active Medications Adderall 10 mg oral tablet 1 tablet = 10 mg, By Mouth, 2 times a day, Take one tab at noon and one tab at 3 pm. Total daily dose 20mg., # 60 tablet, 0 Refills, Maintenance, 10/11/19 15:48:00 EDT, [id number], 1 tablet By Mouth 2 times a day,x30 days,Instr:Take one tab at... Start Date: 10/11/19 Stop Date: 11/10/19 Status: Ordered Adderall XR 30 mg oral capsule, extended release 1 capsule = 30 mg, By Mouth, Daily in AM, for 30 days, For ADHD, # 30 capsule, 0 Refills, Hard Stop02/10/20 11:23:00 EDT, 01/11/20 11:23:00 EDT, CR Capsule, [id number], 1 capsule By Mouth Daily in AM,x30 days,Instr:For ADHD, 177, cm, 02/01/19... Start Date: 01/11/20 Stop Date: 02/10/20 Status: Ordered Adderall XR 30 mg oral capsule, extended release 1 capsule = 30 mg, By Mouth, Daily in AM, for 30 days, For ADHD, # 30 capsule, 0 Refills, Hard Stop01/11/20 11:23:00 EDT, 12/12/19 11:23:00 EDT, CR Capsule, [facility] #[id number], 1 capsule By Mouth Daily in AM,x30 days,Instr:For ADHD, 177, cm, 02/01/19... Start Date: 12/12/19 Stop Date: 01/11/20 Status: Ordered cloNIDine 0.2 mg oral tablet 0.2 mg, 1, tablet, By Mouth, Daily at bedtime, # 30 tablet, Refills 3, Tot. Refills 3, Maintenance,01/04/20 10:43:00 EDT, Route to Pharmacy Electronically, [facility] #[id number], 177, cm, 02/01/19 16:38:00 EDT, Height, 96.7, kg, 05/09/19 8:30:00 Dr.. ROSA. Start Date: 01/04/20 Stop Date: 05/03/20 Status: Ordered QUEtiapine 50 mg oral tablet 1 tablet = 50 mg, By Mouth, 2 times a day, Give 1 tablet in the morning and 1 tablet at noon., # 60tablet, 0 Refills, Maintenance, 01/03/20 10:11:00 EDT, Tablet, [facility] #[id number], 177, cm, 02/01/19 16:38:00 EDT, Height, 96.7, kg, 05/09/19... Start Date: 01/03/20 Status: Ordered risperiDONE 4 mg oral tablet 0.5 tablet = 2 mg, By Mouth, 4 times a day, for 30 days, Take 1/2 a tab at 8 am, 12 pm, 3 pm and atbedtime. Total daily dose 8mg, # 60 tablet, 3 Refills, Hard Stop 02/08/20 15:48:00 EDT, 10/11/19 15:48:00 EDT, [facility] #[id number], 177, cm, 02/01/19 16... Start Date: 10/11/19 Stop Date: 02/08/20 Status: Ordered risperiDONE 4 mg oral tablet 0.5 tablet = 2 mg, By Mouth, 4 times a day, Take 1/2 a tab at 8 am, 12 pm, 3 pm and at bedtime. Total daily dose 8mg, # 60 tablet, 3 Refills, Maintenance, 02/08/20 15:48:00 EDT, [facility] #[id number], 177, cm, 02/01/19 16:38:00 EDT, Height, 96.7, kg, .. Start Date: 02/08/20 Stop Date: 06/07/20 Status: Ordered see special instructions see special instructions, See Instructions, # 1 application, Refills 0, Tot. Refills 0, Maintenance, Give Adderall 10 mg tab at 1:00pm daily, 01/02/15 10:51:25, Compound Start Date: 01/02/15 Status: Ordered traZODone 150 mg oral tablet 2 tablet = 300 mg, By Mouth, Daily at bedtime, Total daily dose 300 mg, # 60 tablet, 3 Refills, Maintenance, 11/13/19 13:36:00 EDT, [facility] #[id number], 177, cm, 02/01/19 16:38:00 EDT, Height, 96.7, kg, 05/09/19 8:30:00 EST, Dry Weight Start Date: 11/13/19 Stop Date: 03/12/20 Status: Ordered Problem List Condition Effective Dates Status Health Status Inform ant Aggressive behavior(Confirmed) Active Autism spectrum disorder req uiring very substantial support (level 3)(Confirmed) Active Insomnia(Confirmed) Active Obesity, morbid(Confirmed) Active Psychosis(Confirmed) Active
--- NOTE | 2023-07-20 23:12 | ED.GENADULT ---
HPI - General Adult General Chief complaint: Dizziness Stated complaint: fell hit head feeling dizzy Time Seen by Provider: 07/20/23 22:23 Source: patient, family (Patient's mother), RN notes reviewed and old records reviewed Mode of arrival: ambulatory Limitations: other (Patient is autistic and a poor historian) History of Present Illness HPI narrative: 23-year-old male with past medical history significant spectrum disorder ADHD, mood disorder presents for evaluation after a fall Per the patient's mother, he was running into the house when he missed a front step and hit his head on the brick wall He did not lose consciousness Per the patient's mother he was complaining of a headache He denies any neck pain He has not had any vomiting, he has not had any additional complaints Per the patient's mother, he has been acting at his baseline The patient has slurred speech at baseline and the mother has noticed no difference in his speech Related Data Home Medications ?Medication ?Instructions ?Recorded ?Confirmed alclometasone 0.05 % topical topical 06/13/21 05/19/23 ointment clonidine HCl 0.1 mg tablet 0.1 mg PO BID 06/13/21 05/19/23 clonidine HCl 0.2 mg tablet 0.2 mg PO BEDTIME 06/13/21 05/19/23 dextroamphetamine-amphetamine ER 1 cap PO QAM 06/13/21 05/19/23 20 mg 24hr capsule,extend release docusate sodium 100 mg capsule 100 mg PO BEDTIME 06/13/21 05/19/23 risperidone 4 mg tablet 4 mg PO BID 06/13/21 05/19/23 tacrolimus 0.1 % topical ointment topical BID PRN Skin Irritation 06/13/21 05/19/23 trazodone 150 mg tablet 150 - 300 mg PO BEDTIME PRN 06/13/21 05/19/23 Insomnia triamcinolone acetonide 0.5 % topical BID 09/19/21 05/19/23 topical ointment dextroamphetamine-amphetamine ER 1 cap PO DAILY 11/08/21 05/19/23 30 mg 24hr capsule,extend release dupilumab 300 mg/2 mL subcutaneous 300 mg subcut Q2W 03/27/22 05/19/23 pen injector (Dupixent) fluvoxamine 150 mg 150 mg PO BEDTIME 03/27/22 05/19/23 capsule,extended release 24 hr levocetirizine 5 mg tablet 5 mg PO DAILY 05/19/23 05/19/23 lithium carbonate 300 mg 300 mg PO BID 05/19/23 05/19/23 tablet,extended release Previous Rx's ?Medication ?Instructions ?Recorded fluticasone propionate 50 2 spray intranasal DAILY PRN nasal 08/30/22 mcg/actuation nasal congestion #48 grams spray,suspension Allergies Allergy/AdvReac Type Severity Reaction Status Date / Time enviormental allergies Allergy Intermediate sinus Uncoded 07/20/23 20:23 pressure sneezing From RITALIN Allergy Intermediate RASH Uncoded 07/20/23 20:23 Review of Systems Constitutional: Constitutional: Denies chills, Denies fever(s) and Reports headache(s) Eyes: Eyes: Denies blurry vision and Denies loss of vision ENT: Denies vertigo, Reports headache(s) and Denies sore throat Cardiovascular: Cardiovascular: Denies chest pain, Denies syncope and Denies dyspnea Respiratory: Respiratory: Denies cough and Denies dyspnea Gastrointestinal: Gastrointestinal: Denies abdominal pain, Denies nausea and Denies vomiting Musculoskeletal: Musculoskeletal: Denies back pain Integumentary/Breasts: Skin/Breast: Reports other (Abrasion to frontal scalp) Neurologic: Denies Neuro-related abnormal movements, Denies Abnormal speech present, Denies behavioral changes, Denies confusion, Denies vertigo, Denies syncope, Reports headache(s), Denies loss of vision and Denies memory loss Psychiatric: Psychiatric: Denies behavioral changes, Denies confusion and Denies memory loss [facility] Past Medical History Medical History (Updated 07/20/23 @ 23:13 by Ted Maradiaga) Witnessed apneic spells Grunting respiration Disturbance in sleep behavior History of eye muscle disorder History of eye muscle disorder History of eye muscle disorder ADHD (attention deficit hyperactivity disorder), predominantly hyperactive impulsive type ADHD DMDD (disruptive mood dysregulation disorder) Autism spectrum disorder with accompanying language impairment and intellectual disability, requiring substantial support Melanocytic nevus of trunk Melanocytic nevi of scalp and neck Xerosis cutis Hypertriglyceridemia without hypercholesterolemia Autism Surgical History (Updated 08/15/22 @ 15:23 by SARAH Moss) H/O circumcision Hx of umbilical hernia repair Family History Family History Other Adopted (not a blood relative) Social History Social History Household Members Other:: Patient lives with mother Dora Housing: Apartment Are you a primary resident care aid to a significant other at home: No Do you presently have visiting nurse or other home services: Yes (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) Patient Tobacco Use Status: Never used Tobacco Smoked in Last 30 Days: No e-Cigarette/Vaping Use: Never Used Use of substances other than those prescribed or required for medical reasons: No Advance Directives: No Advance Directives Information Provided: No service: No Current occupational status: student Cognitive needs: Yes Hearing needs: No Vision needs: No Physical Exam ED Vital Signs: Vital Signs - 24 hr 07/20/23 20:20 07/20/23 21:58 07/20/23 23:21 Temperature 97.8 F 97.5 F 97.8 F Pulse Rate 86 62 73 Respiratory Rate 16 16 16 Blood Pressure 118/75 112/68 109/63 Pulse Oximetry 97 97 96 Oxygen Delivery Method Room Air Room Air Room Air BMI result Body Mass Index 34.7 Const General: No confusion Nutritional Appearance: well nourished Orientation/consciousness: patient oriented x3 and No confusion HENMT Throat: Yes posterior oropharynx normal Eyes Eyelids: Yes eyelids normal Conjunctivae: conjunctivae normal Sclerae: sclerae normal Corneas: corneas normal Pupils: Equal, round and reactive pupils present EOM: EOMs intact bilaterally Neck Neck: Yes full ROM Resp Effort & Inspection: normal respiratory effort, able to speak in complete sentences and not labored GI Inspection: No distended Palpation (GI): Soft to palpation, not firm, nontender, no guarding and not rigid Neuro General: patient oriented x3 and No confusion Cranial nerves: Yes CN's II-XII intact bilaterally, Yes Equal, round and reactive pupils present and Yes Bilaterally intact EOM present Speech: No Abnormal speech present Motor exam (neuro): 5/5 motor strength present throughout Extrem Other: Moving all extremities well without any obvious deformities Medical Decision Making Medical Decision Making MDM Narrative: 23-year-old male with past medical history as documented above. The patient had a minor striking his head against a brick wall. There was no loss of consciousness, the patient has been acting appropriately and at his baseline. History of autism, I recommended CT imaging of the brain and on for the patient. The his mother does not feel this is necessary and would rather watchful waiting. The patient has been in the ER for approximately 4 hours and has had no behavioral changes, no exam compared to his baseline. I feel it is appropriate to discharge this patient without imaging at this time per the mother's request. She was given strict return precautions Lab Data 07/20/23 21:05 07/20/23 21:05 Labs: Lab Results 07/20/23 Range/Units 21:05 WBC 12.5 H (4.8-10.8) X10*3/uL RBC 5.14 (4.60-5.80) X10*6/uL Hgb 14.9 (14.0-18.0) g/dl Hct 43.6 (42.0-52.0) % MCV 84.8 (80.0-98.0) fL MCH 29.0 (27.0-33.0) pg MCHC 34.2 (31.0-36.0) g/dl RDW 11.9 (11.0-16.0) % Plt Count 250 (160-400) X10*3/uL MPV 10.0 (9.4-12.4) fL Immature Gran % (Auto) 0.5 H (0.0-0.4) % Neut % (Auto) 63.9 (45-73) % Lymph % (Auto) 26.0 (20-40) % Coos % (Auto) 7.8 (2-11) % Eos % (Auto) 1.4 (0-4) % Baso % (Auto) 0.4 (0-2) % Lymph # (Auto) 3.3 (1.2-4.9) X10*3/uL Coos # (Auto) 1.0 (0.1-1.2) X10*3/uL Eos # (Auto) 0.2 (0.0-0.4) X10*3/uL Baso # (Auto) 0.1 (0.0-0.2) X10*3/uL Abs Immat Gran (auto) 0.06 H (0.00-0.03) X10*3/uL Absolute Neuts (auto) 8.0 (2.0-8.3) x10*3/uL Absolute Nucleated RBC 0.000 (0.0-0.012) X10*3/uL Nucleated RBC % (auto) 0.0 (0.0-0.2) /100WBC Sodium 139 (135-145) mmol/L Potassium 3.7 (3.3-5.1) mmol/L Chloride 107 (96-108) mmol/L Carbon Dioxide 26 (22-29) mmol/L Anion Gap 10 L (12-20) BUN 13 (9-16) mg/dL Creatinine 0.95 (0.5-1.4) mg/dL Estim Creat Clear Calc 155.7 Estimated GFR > 60 Random Glucose 105 (60-115) mg/dL Calcium 9.5 (8.4-10.2) mg/dL Total Bilirubin 0.3 (0.0-1.0) mg/dL AST 21 (5-37) U/L ALT 27 (0-40) U/L Alkaline Phosphatase 84 (39-117) U/L Total Protein 7.4 (6.5-8.0) g/dL Albumin 4.3 (3.5-5.0) g/dL Discharge Plan Discharge Clinical Impression: Minor closed head injury Patient Disposition: Home, Self-Care Instructions: Head Injury (ED) Additional Instructions: You declined to have CT imaging of Dominic's brain today This is based on reassuring physical exam and Dominic acting at his baseline If you notice any abnormal behavior, especially vomiting, inability to walk straight, slurred speech return to the ER immediately for CT scan of his brain You may give Tylenol for his headaches Follow-up with his primary doctor Prescriptions: No Action fluticasone propionate 50 mcg/actuation spray,suspension 2 spray intranasal DAILY PRN (Reason: nasal congestion) Qty: 48 1RF clonidine HCl 0.1 mg tablet 0.1 mg PO BID risperidone 4 mg tablet 4 mg PO BID dextroamphetamine-amphetamine 20 mg capsule,extended release 24hr 1 cap PO QAM trazodone 150 mg tablet 150 - 300 mg PO BEDTIME PRN (Reason: Insomnia) clonidine HCl 0.2 mg tablet 0.2 mg PO BEDTIME docusate sodium 100 mg capsule 100 mg PO BEDTIME alclometasone 0.05 % ointment topical tacrolimus 0.1 % ointment topical BID PRN (Reason: Skin Irritation) lithium carbonate 300 mg tablet extended release 300 mg PO BID levocetirizine 5 mg tablet 5 mg PO DAILY triamcinolone acetonide 0.5 % ointment topical BID dextroamphetamine-amphetamine 30 mg capsule,extended release 24hr 1 cap PO DAILY Dupixent Pen 300 mg/2 mL pen injector 300 mg subcut Q2W fluvoxamine 150 mg capsule,extended release 24hr 150 mg PO BEDTIME Interventions: ED Discharge Assessment Last Done: 07/20/23 23:21 Discharge Date/Time: 07/20/23 23:24 Print Language: Setswana
[2023-07-20 23:21] VITALS: BP 109/63; PULSE 73; RESP 16; TEMP 36.6; O2SAT 96
== END 2023-07-20 23:24 | disposition home or self-care (01) ==
PROVIDERS: Emergency Provider Emergency Medicine
DX: S09.90XA Unspecified injury of head, initial encounter (principal); F84.0 Autistic disorder; W18.30XA Fall on same level, unspecified, initial encounter; Y93.02 Activity, running; Y92.009 Unspecified place in unspecified non-institutional (private) residence as the place of occurrence of the external cause; Y99.9 Unspecified external cause status
CPT/HCPCS: 36415; 80053; 85025; 99283; 99284

== ENCOUNTER 2024-01-16 08:33 | Outpatient (REF) | payer OTHER, SELFPAY ==
[2024-01-16 08:45] LABS: MANUAL DIFF FLAG NO
[2024-01-16 09:23] LABS: Basophils Percent Auto 0.4 % (0-2); Eosinophils Absolute Auto 0.2 X10*3/uL (0.0-0.4); Eosinophils Percent Auto 2.4 % (0-4); Hematocrit 43.8 % (42.0-52.0); Imm Gran Abs Auto 0.04 X10*3/uL (0.00-0.03); Imm Gran Pct Auto 0.5 % (0.0-0.4); Lymphocytes Absolute Auto 2.5 X10*3/uL (1.2-4.9); Lymphocytes Percent Auto 30.3 % (20-40); Mean Corpuscular HGB Conc 34.2 g/dl (31.0-36.0); Mean Corpuscular Hemoglobin 29.2 pg (27.0-33.0); Mean Corpuscular Volume 85.4 fL (80.0-98.0); Mean Platelet Volume 10.3 fL (9.4-12.4); Monocytes Absolute Auto 0.6 X10*3/uL (0.1-1.2); Monocytes Percent Auto 7.3 % (2-11); Neutrophils Absolute Auto 4.9 x10*3/uL (2.0-8.3); Neutrophils Percent Auto 59.1 % (45-73); Platelet Count 274 X10*3/uL (160-400); Red Blood Count 5.13 X10*6/uL (4.60-5.80); Red Cell Distribution Width 11.9 % (11.0-16.0); White Blood Count 8.3 X10*3/uL (4.8-10.8)
[2024-01-16 09:48] LABS: Creatinine Urine 95.55 mg/dL; Microalbumin Urine < 5.0 mg/L
[2024-01-16 09:48] LABS: Lithium 0.48 mmol/L (0.60-1.20)
[2024-01-16 10:00] LABS: Anion Gap 11 (12-20); Blood Urea Nitrogen 9 mg/dL (9-16); Calcium 9.7 mg/dL (8.4-10.2); Carbon Dioxide 25 mmol/L (22-29); Chloride 110 mmol/L (96-108); Cholesterol 156 mg/dL (<200); Estimated Glomerular Filt Rate > 60; Glucose Fasting 94 mg/dL (60-99); HDL Cholesterol 29 mg/dL (>40); LDL Cholesterol Calculated 80 mg/dL (<100); Potassium 4.1 mmol/L (3.3-5.1); Sodium 142 mmol/L (135-145); Triglycerides 239 mg/dL (<150)
[2024-01-16 10:17] LABS: Estimated Average Glucose 94 mg/dL; Hemoglobin A1C 113.0829 umol/L; Hemoglobin A1c % 4.9 % (<6.0); Total Hemoglobin (HGBA1C) 3799.9492 umol/L
[2024-01-16 10:19] LABS: Free T4 (Free Thyroxine) 1.03 ng/dL (0.71-1.85); Thyroid Stimulating Hormone 3.09 uIU/mL (0.32-4.0)
== END 2024-01-16 08:34 | disposition home or self-care (01) ==
LOC: HO.LAB 08:33
PROVIDERS: PCP Internal Medicine; Visit Provider Clinical Nurse Specialist Psychiatric/Mental Health, Child & Adolescent
DX: Z79.899 Other long term (current) drug therapy (principal)
CPT/HCPCS: 36415; 80048; 80061; 80178; 82043; 82570; 83036; 84439; 84443; 85025

== ENCOUNTER 2024-04-16 08:54 | Outpatient (REF) | payer OTHER, SELFPAY ==
[2024-04-16 09:35] LABS: Estimated Average Glucose 94 mg/dL; Hemoglobin A1C 112.6973 umol/L; Hemoglobin A1c % 4.9 % (<6.0); Total Hemoglobin (HGBA1C) 3693.2638 umol/L
[2024-04-16 09:41] LABS: Lithium 0.45 mmol/L (0.60-1.20)
[2024-04-16 09:52] LABS: Cholesterol 163 mg/dL (<200); HDL Cholesterol 28 mg/dL (>40); LDL Cholesterol Calculated 93 mg/dL (<100); Triglycerides 212 mg/dL (<150)
[2024-04-16 10:09] LABS: Free T4 (Free Thyroxine) 1.05 ng/dL (0.71-1.85)
== END 2024-04-16 08:55 | disposition home or self-care (01) ==
LOC: HO.LAB 08:54
PROVIDERS: PCP Internal Medicine; Visit Provider Registered Nurse
DX: Z79.899 Other long term (current) drug therapy (principal)
CPT/HCPCS: 36415; 80061; 80178; 83036; 84439; 84443

== ENCOUNTER 2024-05-12 09:11 | Outpatient (REF) | payer OTHER, SELFPAY ==
[2024-05-12 09:57] LABS: Estimated Average Glucose 94 mg/dL; Hemoglobin A1C 116.4239 umol/L; Hemoglobin A1c % 4.9 % (<6.0); Total Hemoglobin (HGBA1C) 3849.8247 umol/L
[2024-05-12 10:27] LABS: Lithium 0.74 mmol/L (0.60-1.20)
[2024-05-12 10:55] LABS: Cholesterol 148 mg/dL (<200); HDL Cholesterol 26 mg/dL (>40); LDL Cholesterol Calculated 82 mg/dL (<100); Triglycerides 201 mg/dL (<150)
[2024-05-12 11:14] LABS: Free T4 (Free Thyroxine) 1.14 ng/dL (0.71-1.85); Thyroid Stimulating Hormone 1.76 uIU/mL (0.32-4.0)
--- OUTSIDE RECORDS SUMMARY | 2024-05-12 12:17 | XMS_ITS | Clinical Summary ---
Author Organization [facility] Address [address] [place] [address] Care Team Providers Care Cardroom Supervisor Name Role Phone Unavailable Primary Care Provider Unavailabl e Social History Tobacco Use Types Packs/Day Years Used Date Smoking Tobacco: Never Assessed Sex and Gender Information Value Date Recorded Sex Assigned at Not on file Gender Identity Not on file Sexual Orientation Not on file Plan of Treatment Health Maintenance Due Date Last Done Comments HPV Vaccines (1 - Male 3-dos e series) 02/20/2016 DTaP,Tdap,and Td Vaccines (1 - Tdap) 02/20/2020 Hepatitis B Vaccines (1 of 3 - 19+ 3-dose series) 02/20/2020 COVID-19 Vaccine ( - 2023-2 5 season) 2023 Influenza Vaccine (#1) 2023 HIB Vaccines Aged Out No longer eligi ble based on patient's age to complete this topic Hepatitis A Vaccines Aged Out No long er eligible based on patient's age to complete this topic IPV Vaccines Aged Out No longer eligi ble based on patient's age to complete this topic MMR Vaccines Aged Out No longer eligi ble based on patient's age to complete this topic Meningococcal ACWY Vaccine Aged Out N o longer eligible based on patient's age to complete this topic Pneumococcal Vaccine: Pediat rics (0 to 5 Years) and At-Risk Patients (6 to 64 Years) Aged Out No longer eligible b ased on patient's age to complete this topic RSV Immunization Patients Un иван 20 months Aged Out No longer eligible b ased on patient's age to complete this topic Varicella Vaccines Aged Out No longer eligible based on patient's age to complete this topic
--- OUTSIDE RECORDS SUMMARY | 2024-05-12 12:17 | XMS_ITS | Clinical Summary ---
Author Organization [facility] Address [address] [facility] [address] [place] [address] Phone Care Team Providers Care Phone Operator Name Role Phone Unavailable Primary Care Provider Unavailabl e Allergies Active Allergy Reactions Criticality Noted Date Comments Methylphenidate Other (see comments) 05/04/2018 Medications omeprazole (PriLOSEC) [address] capsule Take 20 mg by mouth 1 (one) time each day Active risperiDONE (RisperDAL-M) 4 MG dispersible tablet Take 4 mg by mouth 2 (two) times a day Active traZODone (DESYREL) 150 MG tablet Take 150 mg by mouth every night Active cloNIDine (CATAPRES) 0.1 MG tablet Take 0.1 mg by mouth 2 (two) times a day Active Docusate Sodium (DSS) 100 MG capsule Take 100 mg by mouth twice a day 09/13/2020 Active fluvoxaMINE (LUVOX) 100 MG tablet Take 1 tablet by mouth 1 (one) time each day 11/12/2020 Active LORazepam (ATIVAN) 1 MG tablet Take 1 tablet by mouth if needed 12/25/2020 Active Adderall XR 30 MG 24 hr capsule Take 1 capsule by mouth 1 (one) time each day 01/01/2021 Active cloNIDine (CATAPRES) 0.2 MG tablet Take 1 tablet by mouth 1 (one) time each day 12/28/2020 Active Triamcinolone Acetonide 0.025 % lotion APPLY TWICE DAILY TO SCALP NEEDED FOR FLARES 06/01/2021 Active alclomethasone (ACLOVATE) 0.05 % cream 03/18/2022 Active Dupixent 300 MG/2ML solution pen-injector 03/14/2022 Active cephalexin (KEFLEX) 500 MG capsule TAKE 1 CAPSULE BY MOUTH 3 TIMES A DAY FOR 10 DAYS 03/17/2022 Active lithium (LITHOBID) 300 MG CR tablet Take 300 mg by mouth in the morning and 300 mg at noon and 300 mg in the evening. Do not crush, chew, or split.. Active Active Problems Problem Noted Date Diagnosed Date Aggressive behavior 08/08/2021 Insomnia 08/08/2021 Morbid obesity 08/08/2021 Psychotic disorder 08/08/2021 Abdifatah hematuria 07/17/2020 Autism spectrum disorder 07/17/2020 Lactose intolerance 05/28/2020 Urethral discharge 05/14/2020 Periumbilical pain 04/10/2020 Cyst of kidney Gross hematuria Nephrolithiasis Resolved Problems Problem Noted Date Diagnosed Date Resolved Date Internal hemorrhoids grade I 05/28/2020 05/17/2021 Family History Medical History Relation Comments Diabetes Father Relation Status Comments Father Alive Mother Alive Social History Tobacco Use Types Packs/Day Years Used Date Smoking Tobacco: Never Smokeless Tobacco: Never Tobacco Cessation:Counseling Given: Not Answered Alcohol Use Standard Drinks/Week Comments Never 0 (1 standard drink = 0.6 oz pur e alcohol) Sex and Gender Information Value Date Recorded Sex Assigned at Not on file Legal Sex Male 8:56 AM EST Gender Identity Not on file Sexual Orientation Not on file Last Filed Vital Signs Vital Sign Reading Time Taken Comments Blood Pressure 90/68 06/08/2023 3:34 PM EST Pulse 84 06/08/2023 3:34 PM EST Temperature - - Respiratory Rate - - Oxygen Saturation 97% 03/20/2022 1:09 PM EST Inhaled Oxygen Concentration - - Weight 109 kg (240 lb) 06/08/2023 3:34 PM EST Height 177.8 cm (5' 10 ) 09/18/2022 2:53 PM EDT Body Mass Index 34.44 09/18/2022 2:53 PM EDT Plan of Treatment Upcoming Encounters Date Type Department Care Team (Late st Contact Info) Description 05/14/2024 Orders Only [facility] [address] [place] [address] Jessica Cash ARNP [address] [address] Recurrent and persistent hematuria with minimal change lesion; Simple renal cyst 06/06/2024 4:15 PM EST Office Visit [facility] [place] [address] [address] Jessica Cash ARNP [address] [address] Health Maintenance Due Date Last Done Comments Pneumococcal Vaccine: Pediat rics (0 to 5 Years) and At-Risk Patients (6 to 64 Years) (1 of 2 - PCV) 2007 Hepatitis B Vaccine (1 of 3 - 19+ 3-dose series) 02/19 Influenza Vaccine (#1) 2023 Insurance [place]ICAID [place] [facility] ([id number])
--- OUTSIDE RECORDS SUMMARY | 2024-05-12 12:17 | XMS_ITS | Encounter Summary ---
Author Organization [facility] Address [address] [id number] Care Team Providers Care Hotel Attendant Name Role Phone Prosper Harper MD Primary Care Provider [phone] Reason for Visit * Reason Comments Medication Refill Encounter Details Date Type Department Care Team (Late st Contact Info) Description 04/16/2021 [facility]ill [facility] [address] [place] [address] Helga Wilcox MD [address] [place] [id number] Chronic idiopathic constipation Social History Tobacco Use Types Packs/Day Years Used Date Smoking Tobacco: Never Smokeless Tobacco: Never Sex and Gender Information Value Date Recorded Sex Assigned at Not on file Legal Sex Male 10:12 AM EST Gender Identity Not on file Sexual Orientation Not on file documented as of this encounter Miscellaneous Notes * Telephone Encounter - Lashay Hu RN - 04/17/2021 10:33 AM EST [place] pt- please sched follow up with SS- next available- not urgent-thanks * Telephone Encounter - Lashay Hu RN - 04/17/2021 9:12 AM EST [place] pt Last seen 09-13-20 No pending appts documented in this encounter Plan of Treatment Not on file documented as of this encounter Visit Diagnoses Diagnosis Chronic idiopathic constipation Unspecified constipation documented in this encounter Care Teams Hotel Attendant Relationship Specialty Start Date End Date Prosper Harper MD [address] [place] [id number] PCP - General 03/21/20 documented as of this encounter
--- OUTSIDE RECORDS SUMMARY | 2024-05-12 12:17 | XMS_ITS | Encounter Summary ---
Author Organization [facility] Address [address] [place] [address] Care Team Providers Care Network Security Engineer Name Role Phone Prosper Harper MD Primary Care Provider Reason for Visit * Reason Comments Medication Refill Encounter Details Date Type Department Care Team (Late st Contact Info) Description 11/25/2021 Refill [facility] Gastroenterology, [place] [address] [place] [address] Lluvia Narvaez MD [address] [place] [id number] Chronic idiopathic constipation Social History Tobacco Use Types Packs/Day Years Used Date Smoking Tobacco: Never Smokeless Tobacco: Never Sex and Gender Information Value Date Recorded Sex Assigned at Not on file Legal Sex Male 10:12 AM EST Gender Identity Not on file Sexual Orientation Not on file documented as of this encounter Miscellaneous Notes * Telephone Encounter - Brianna Brown RN - 11/25/2021 3:45 PM EDT Admin- please schedule follow up visit with patient, next available * Telephone Encounter - Brianna Brown RN - 11/25/2021 1:41 PM EDT Last visit: 09/13/20 MD Wilcox Next visit: no appointment scheduled Allergies: reviewed Weight: 98.9 kg Current dose: Increase colace to 100 mg twice a day MD Narvaez- Appears that script was refused on 10/21/21 Please advise on follow up documented in this encounter Plan of Treatment Not on file documented as of this encounter Visit Diagnoses Diagnosis Chronic idiopathic constipation Unspecified constipation documented in this encounter Care Teams Network Security Engineer Relationship Specialty Start Date End Date Prosper Harper MD [address] [place] [id number] PCP - General 03/21/20 documented as of this encounter
--- OUTSIDE RECORDS SUMMARY | 2024-05-12 12:17 | XMS_ITS | Clinical Summary ---
Author Organization [facility] Address [address] [place] [address] Care Team Providers Care Patient Support Specialist Name Role Phone Prosper Harper MD Primary Care Provider Source Comments Please note that some or all of the patient's information could have additional privacy protections. State laws allow health care providers to render certain types of treatment to minors without parental consent. Please do not assume that this information can be shared solely by obtaining just the consent of the patient's parent/guardian. Please determine if all or part of the patient's care was rendered without parent/guardian involvement. And, if so, obtain the minor's consent prior to disclosure.[facility] Allergies Active Allergy Reactions Criticality Noted Date Comments Methylphenidate 05/04/2018 Methylphenidate Hcl 05/04/2018 Medications cloNIDine HCL (CATAPRES) 0.2 MG tablet Take by mouth 2 (two) times daily Active risperiDONE (RISPERDAL) 4 MG tablet Take 4 mg by mouth 2 (two) times daily Active traZODone (DESYREL) 300 MG tablet Take by mouth nightly Active dextroamphetamin e-amphetamine (ADDERALL XR) 10 MG extended release capsule Take 30 mg by mouth every morning Active sennosides 15 mg TabletIndication s:Periumbilical abdominal pain,Chronic idiopathic constipation,Dys pepsia Take 15 mg by mouth daily 30 tablet 3 0 Active Additional Information Patient not taking.Reported on 05/28/2020 hydrOXYzine (ATARAX) 50 MG tablet Take by mouth Active cloNIDine HCL (CATAPRES) 0.1 MG tablet Take by mouth Active dextroamphetamin e-amphetamine (ADDERALL) 10 mg per tablet Take by mouth Activ e dextroamphetamin e-amphetamine (ADDERALL) 30 mg per tablet Take by mouth Activ e traZODone (DESYREL) 150 MG tablet Take by mouth Active omeprazole (PRILOSEC) 40 MG capsuleIndicatio ns:Periumbilical abdominal pain,Chronic idiopathic constipation,Dys pepsia Take 1 capsule (40 mg) by mouth daily 30 capsule 3 1 Active hydrocortisone 1 % cream with perineal applicatorIndica tions:Grade I hemorrhoids Apply small amount once to twice a day for 2 weeks 1 Tube 1 1 Active fluvoxaMINE (LUVOX) 100 MG tablet Take 100 mg by mouth nightly Active polyethylene glycol (MIRALAX) 17 gram/dose powderIndication s:Chronic idiopathic constipation Take 17 g by mouth 2 (two) times daily 2 each 5 1 Active docusate (COLACE) 100 MG capsuleIndicatio ns:Chronic idiopathic constipation TAKE 1 CAPSULE BY MOUTH EVERY DAY 30 capsule 2 2 Active Active Problems Problem Noted Date Diagnosed Date Lactose intolerance 05/28/2020 Grade I hemorrhoids 05/28/2020 Periumbilical abdominal pain 04/10/2020 Chronic idiopathic constipation 04/10/2020 Dyspepsia 04/10/2020 Family History Medical History Relation Name Comments Diabetes Father Cancer Maternal Grandfather lung Diabetes Maternal Grandmother Asthma Mother Constipation Mother Hypertension Mother Migraines Mother Relation Name Status Comments Father Alive Maternal Grandfather Maternal Grandmother Alive Mother Alive Social History Tobacco Use Types Packs/Day Years Used Date Smoking Tobacco: Never Smokeless Tobacco: Never Other Needs Answer Date Recorded Anything else about your child you'd like help w [facility]? Not on file 12/26/2022 Share good news about positive changes: Not on f ile 12/26/2022 Sex and Gender Information Value Date Recorded Sex Assigned at Not on file Legal Sex Male 10:12 AM EST Gender Identity Not on file Sexual Orientation Not on file Last Filed Vital Signs Vital Sign Reading Time Taken Comments Blood Pressure 105/72 09/13/2020 10:06 AM EDT Pulse 91 09/13/2020 10:06 AM EDT Temperature - - Respiratory Rate - - Oxygen Saturation - - Inhaled Oxygen Concentration - - Weight 98.9 kg (218 lb 0.6 oz) 09/13/2020 10:06 AM EDT Height 174 cm (5' 8.5 ) 09/13/2020 10:06 AM EDT Body Mass Index 32.67 09/13/2020 10:06 AM EDT Plan of Treatment Health Maintenance Due Date Last Done Comments DTaP/TDAP/TD VACCINES (1 - Tdap) 02/20/2008 ADOLESCENT HIV SCREENING 2014 COVID-19 Vaccine ( - 2023-2 5 season) 2023 INFLUENZA (#1) 2023 NIRSEVIMAB VACCINES UNDER 8 MONTHS Aged Out No longer eligible based on patient's age to complete this topic [place] [address] [place] [address] MEDICAID Care Teams Patient Support Specialist Relationship Specialty Start Date End Date Prosper Harper MD [address] [place] [address] PCP - General 03/21/20
--- OUTSIDE RECORDS SUMMARY | 2024-05-12 12:17 | XMS_ITS | Encounter Summary ---
Author Organization [facility] Address [address] [place] [address] Care Team Providers Care Senior Health Physics Technician Name Role Phone Prosper Harper MD Primary Care Provider Reason for Visit * Reason Comments Medication Refill Encounter Details Date Type Department Care Team (Late st Contact Info) Description 10/21/2021 Refill [facility] Gastroenterology, [place] [address] [place] [address] Lluvia Narvaez MD [address] [place] [address] Chronic idiopathic constipation Social History Tobacco Use Types Packs/Day Years Used Date Smoking Tobacco: Never Smokeless Tobacco: Never Sex and Gender Information Value Date Recorded Sex Assigned at Not on file Legal Sex Male 10:12 AM EST Gender Identity Not on file Sexual Orientation Not on file documented as of this encounter Plan of Treatment Not on file documented as of this encounter Visit Diagnoses Diagnosis Chronic idiopathic constipation Unspecified constipation documented in this encounter Care Teams Senior Health Physics Technician Relationship Specialty Start Date End Date Prosper Harper MD [address] [place] [address] PCP - General 03/21/20 documented as of this encounter
--- OUTSIDE RECORDS SUMMARY | 2024-05-12 12:17 | XMS_ITS | Referral Summary ---
Author Organization [facility] Address [address] [place] [address] Care Team Providers Care Foundry Molder Name Role Phone Prosper Harper MD Primary [...] so, obtain the minor's consent prior to disclosure.[facility] Allergies Active Allergy Reactions Criticality Noted Date [...] 04/10/2020 Chronic idiopathic constipation 04/10/2020 Dyspepsia 04/10/2020 Social History Tobacco Use Types Packs/Day Years Used Date Smoking Tobacco: Never Smokeless Tobacco: Never Other Needs Answer Date Recorded Anything else about your child you'd like help w ith? Not on file 12/26/2022 Share good news [...] 09/13/2020 10:06 AM EDT Plan of Treatment Not on file Insurance [facility] MEDICAID Care Teams Foundry Molder Relationship Specialty Start Date End Date Prosper Harper MD [address] [place] [address] PCP - General 03/21/20
== END 2024-05-12 09:12 | disposition home or self-care (01) ==
LOC: HO.LAB 09:11
PROVIDERS: PCP Internal Medicine; Visit Provider Registered Nurse
DX: Z79.899 Other long term (current) drug therapy (principal)
CPT/HCPCS: 36415; 80061; 80178; 83036; 84439; 84443

== ENCOUNTER 2024-05-26 12:22 | Outpatient (AMB) | payer OTHER, SELFPAY ==
--- NOTE | 2024-05-26 12:19 | MHC.PC.OV ---
Intake Visit Reasons: TV visit Intake Note: Pt's mom request referral Allergies enviormental allergies Allergy (Intermediate, Uncoded 05/26/24 12:41) sinus pressure sneezing From RITALIN Allergy (Intermediate, Uncoded 05/26/24 12:41) RASH Medication List - Last Reconciled 05/26/24 by Brynn Christianson MD alclometasone 0.05% topical clonidine HCl 0.1 mg PO BID clonidine HCl 0.2 mg PO BEDTIME dextroamphetamine-amphetamine 20 mg ER 1 cap PO QAM dextroamphetamine-amphetamine 30 mg ER 1 cap PO DAILY docusate sodium 100 mg PO BEDTIME dupilumab (Dupixent) 300 mg subcut Q2W fluticasone propionate 50 mcg/actuation 2 sprays intranasal DAILY PRN fluvoxamine ER 150 mg PO BEDTIME levocetirizine 5 mg PO DAILY lithium carbonate ER 300 mg PO BID risperidone 4 mg PO BID tacrolimus 0.1% topical BID PRN trazodone 150 - 300 mg PO BEDTIME PRN triamcinolone acetonide 0.5% topical BID Tobacco use date assessed: 05/26/24 Dental Screening Dental Screen Date: 05/26/24 Did you have a dental visit in the last 12 months?: Yes Did you have a dental problem in the last 6 months where you did not have access to dental care?: No Was dental information given to patient?: Patient has dentist HPI HPI Comments History of Present Illness Details 24-year-old male here today via telehealth complaining of intermittent episodes of epigastric pain unrelated to food intake, accompanied by bloating and constipation , but no nausea, no vomiting no fever or urinary symptoms. He takes TUMS which affords occasional temporary relief. As per mother , patient has been eating a lot of unhealthy foods, which consists of chips, sodas pastries. No exercise at all. [facility] Medical History (Updated 05/26/24 @ 12:47 by Brynn Christiansno MD) Abdominal pain Irritable bowel syndrome with constipation Eczema History of eye muscle disorder ADHD (attention deficit hyperactivity disorder), predominantly hyperactive impulsive type ADHD DMDD (disruptive mood dysregulation disorder) Autism spectrum disorder with accompanying language impairment and intellectual disability, requiring substantial support Melanocytic nevus of trunk Melanocytic nevi of scalp and neck Xerosis cutis Hypertriglyceridemia without hypercholesterolemia Autism Surgical History H/O circumcision Hx of umbilical hernia repair Family History Other Adopted (not a blood relative) Social History Household Members Other:: Patient lives with mother Dora Housing: Apartment Are you a primary career discovery teacher to a significant other at home: No Do you presently have visiting nurse or other home services: Yes ([employer] daily) Patient Tobacco Use Status: Never used Tobacco e-Cigarette/Vaping Use: Never Used service: No Current occupational status: student Cognitive needs: Yes Hearing needs: No Vision needs: No Questionnaire Thrive Questionnaire Date Thrive assessed: 05/19/23 I am a: Patient What is your living situation today?: I have a steady place to live Within the past 12 months, did the food you bought not last and you didn't have the money to get more?: Never true Within the past 12 months, did you worry whether your food would run out before you got money to buy more?: Never true Do you have trouble paying for medicines?: No Do you have trouble getting transportation to medical appointments?: No Do you have trouble paying your heating and electricity bill?: No Do you have trouble taking care of your child, family member or friend?: No Do you have trouble with day-to-day activities such as bathing, preparing meals, shopping, managing finances, etc.?: I choose not to answer this question Are you interested in more education?: No Please select the resources that you would like help with: None Currently or been in a relationship where the following occur: No concerns reported THRIVE Score: 0 AUDIT C Alcohol Use Questionnaire (AUDIT-C) 1. How often do you have a drink containing alcohol?: Never Total Score: 0 KRYSTA-7 AMB Questionnaire KRYSTA-7 Date KRYSTA - 7 assessed: 05/19/23 Feeling nervous, anxious, or on edge: 0 = Not at all Not being able to stop or control worryin = Not at all Worrying too much about different things: 0 = Not at all Being so restless that it is hard to sit still: 0 = Not at all Becoming easily annoyed or irritable: 0 = Not at all Feeling afraid as if something awful might happen: 0 = Not at all Source: Developed by Drs. Brian Hannah, Liz Thomas, Ananda Morse and colleagues, with an educational tigre from [employer]. Review of Systems Const All systems reviewed & are unremarkable except as noted in HPI and below Reports no additional complaints Eyes Reports no additional complaints ENT Reports no additional complaints Card Reports no additional complaints Resp Reports no additional complaints GI Reports no additional complaints Reports no additional complaints Musc Reports no additional complaints Neuro Reports no additional complaints Endo Reports no additional complaints Physical exam (Primary Care) Tobacco/Smoking Status: Tobacco use Status Tobacco use date assessed 05/26/24 05/26/24 12:21 Patient Tobacco Use Status Never used Tobacco 05/26/24 12:21 e-Cigarette/Vaping Use Never Used 05/26/24 12:21 Thrive Assessment: Date of Thrive Assessment Date Thrive assessed 05/19/23 05/26/24 12:21 Currently or been in a relationship where the following occur: No concerns reported Telehealth Telehealth Telehealth Platform: Kenzei Location of provider rendering services: practice address Location of patient: address on file Patient Identification confirmed using: Name, : Yes Telehealth method: video Patient verbally consented to treatment: Yes Patient verbally consented to billing insurance company: Yes Patient informed of any privacy concerns related to visit: Yes Minutes spent on Phone/Video with Pt.: 15 Coding Level of Care Code Tele Est Pt Level 3 (94619) Diagnoses Irritable bowel syndrome with constipation K58.1 Epigastric pain R10.13 Assessment & Plan Assessment & Plan (1) Irritable bowel syndrome with constipation: Code(s): K58.1 - Irritable bowel syndrome with constipation Category: Medical Plan: Patient given prescription for omeprazole empirically, 20 mg to take 1 capsule once a day an hour before eating, and stressed importance of adhering to healthy diet and getting regular exercise. Prescription also given for Raphael's 3 mg per tablet to take once a day as needed for episodes of constipation (2) Epigastric pain: Code(s): R10.13 - Epigastric pain Plan: Prescription sent for omeprazole 20 mg 1 capsule daily an hour before eating. Units to healthy eating habits, avoidance of triggers like soda, coffee, hot dogs, fries Plan Ordered an upper GI series as well as an abdominal ultrasound. Orders: Orders [place] upper GI series 05/26/24 R10.13 - Epigastric pain US abdomen complete 05/26/24 R10.9 - Unspecified abdominal pain Medications: New Trulance (plecanatide) 3 mg PO DAILY 30 tabs 0RF NS K58.1 - Irritable bowel syndrome with constipation omeprazole 20 mg PO DAILY 30 caps 1RF
--- OUTSIDE RECORDS SUMMARY | 2024-05-26 12:35 | XMS_ITS | Referral Summary ---
Author Organization [facility] Address [address] [place] [address] Care Team Providers Care Buckle Sorter Name Role Phone Prosper Harper MD Primary Care Provider [phone] Source Comments Please note that some or [...] so, obtain the minor's consent prior to disclosure.[facility] Allergies Active Allergy Reactions Criticality Noted [...] Plan of Treatment Not on file Insurance [facility] MEDICAID Care Teams Buckle Sorter Relationship Specialty Start Date End Date Prosper Harper MD [address] [place] [address] PCP - General 03/21/20
--- OUTSIDE RECORDS SUMMARY | 2024-05-26 12:35 | XMS_ITS | Encounter Summary ---
Author Organization [facility] Address [address] [place] [address] Care Team Providers Care Printed Circuit Board Panels Deburrer Name Role Phone Prosper Harper MD Primary Care Provider Reason for Visit * Reason Comments Medication Refill Encounter Details Date Type Department Care Team (Late st Contact Info) Description 10/21/2021 Refill [facility] Gastroenterology, [place] [address] [place] [address] Lluvia Narvaez MD [address] [place] [phone] Chronic idiopathic constipation Social History Tobacco Use [...] constipation documented in this encounter Care Teams Printed Circuit Board Panels Deburrer Relationship Specialty Start Date End Date Prosper Harper MD [address] [place] [address] PCP - General 03/21/20 documented as of this encounter
--- OUTSIDE RECORDS SUMMARY | 2024-05-26 12:35 | XMS_ITS | Encounter Summary ---
Author Organization [facility] Address [address] [phone] Care Team Providers Care Fiscal Services Director Name Role Phone Prosper Harper MD Primary Care Provider Reason for Visit * Reason Comments Medication Refill Encounter Details Date Type Department Care Team (Late st Contact Info) Description 11/25/2021 Refill [facility] Gastroenterology, [place] [address] [place] [address] Lluvia Narvaez MD [address] [place] [phone] Chronic idiopathic constipation Social History Tobacco Use [...] constipation documented in this encounter Care Teams Fiscal Services Director Relationship Specialty Start Date End Date Prosper Harper MD [address] [place] [address] PCP - General 03/21/20 documented as of this encounter
--- OUTSIDE RECORDS SUMMARY | 2024-05-26 12:35 | XMS_ITS | Clinical Summary ---
Author Organization [facility] ity Address [address] [place] [address] Care Team Providers Care Cook Sauce Name Role Phone Unavailable Primary Care Provider Unavailabl e Social History Tobacco Use Types Packs/Day Years Used Date Smoking Tobacco: Never Assessed Sex and Gender Information Value Date Recorded Sex Assigned at Not on file Legal Sex Male 8:51 AM EST Gender Identity Not on file [...]
--- OUTSIDE RECORDS SUMMARY | 2024-05-26 12:35 | XMS_ITS | Clinical Summary ---
Author Organization [facility] Address [address] [place] [address] Care Team Providers Care Correctional Treatment Specialist Name Role Phone Prosper Harper MD [...] about your child you'd like help w [facility]? Not on file 12/26/2022 Share good [...] patient's age to complete this topic [place] [address] [address] [place] [address] MEDICAID Care Teams Correctional Treatment Specialist Relationship Specialty Start Date End Date Prosper Harper MD [address] [place] [address] PCP - General 03/21/20
--- OUTSIDE RECORDS SUMMARY | 2024-05-26 12:35 | XMS_ITS | Clinical Summary ---
Author Organization [facility] Address [address] [facility] [address] [place] [address] Phone Care Team Providers Care Electronics Assembler And Tester Name Role Phone Unavailable Primary Care Provider [...] Date Internal hemorrhoids grade I 05/28/2020 05/17/2021 Encounters Date Type Department Care Team Description 05/14/2024 Orders Only [facility] [address] [place] [address] Jessica Cash ARNP Recurrent and persistent hematuria with minimal change lesion; Simple renal cyst from Last 3 Months Family History Medical History Relation Comments Diabetes [...] Care Team (Late st Contact Info) Description 06/06/2024 4:15 PM EST Office Visit [facility] [address] [phone] Jessica Cash ARNP [address] [phone] Health Maintenance Due Date Last Done Comments Pneumococcal Vaccine: Pediat rics (0 to 5 Years) and At-Risk Patients (6 to 64 Years) (1 of 2 - PCV) 2007 Hepatitis B Vaccine (1 of 3 - 19+ 3-dose series) 02/19 Influenza Vaccine (#1) 2023 Insurance MEDICAID [place] [facility] ([id number])
--- OUTSIDE RECORDS SUMMARY | 2024-05-26 12:35 | XMS_ITS | Encounter Summary ---
Author Organization [facility] Address [address] [phone] Care Team Providers Care Licensed Nuclear Operator Name Role Phone Prosper Harper MD Primary Care Provider [phone] Reason for Visit * Reason Comments Medication Refill Encounter Details Date Type Department Care Team (Late st Contact Info) Description 04/16/2021 [facility] [address] [place] [address] Helga Wilcox MD [address] [place] [address] Chronic idiopathic constipation Social History Tobacco Use [...] constipation documented in this encounter Care Teams Licensed Nuclear Operator Relationship Specialty Start Date End Date Prosper Harper MD [address] [place] [address] PCP - General 03/21/20 documented as of this encounter
--- OUTSIDE RECORDS SUMMARY | 2024-05-26 12:35 | XMS_ITS | Encounter Summary ---
Author Organization [facility] Address [address] [place] [address] Phone Care Team Providers Care Protozoologist Name Role Phone Unavailable Primary Care Provider Unavailabl e Encounter Details Date Type Department Care Team (Late st Contact Info) Description 05/14/2024 Orders Only [facility] [address] [place] [address] Jessica Cash ARNP [address] [phone] Recurrent and persistent hematuria with minimal change lesion; Simple renal cyst Social History Tobacco Use Types Packs/Day Years Used Date Smoking Tobacco: Never Smokeless Tobacco: Never Alcohol Use Standard Drinks/Week Comments Never 0 (1 standard drink = 0.6 oz pur e alcohol) Sex and Gender Information Value Date Recorded Sex Assigned at Not on file Legal Sex Male 8:56 AM EST Gender Identity Not on file Sexual Orientation Not on file documented as of this encounter Plan of Treatment Upcoming Encounters Date Type Department Care Team (Late st Contact Info) Description 06/06/2024 4:15 PM EST Office Visit [facility] [address] [address] Jessica Cash ARNP [address] [address] documented as of this encounter Visit Diagnoses Diagnosis Recurrent and persistent hematuria with minimal change lesion Simple renal cyst documented in this encounter
== END 2024-05-26 16:21 | disposition home or self-care (01) ==
LOC: HO.HMCC 12:22
PROVIDERS: PCP Internal Medicine; Visit Provider Internal Medicine
DX: K58.1 Irritable bowel syndrome with constipation (principal); R10.13 Epigastric pain

== ENCOUNTER → 2024-05-26 12:22 | Outpatient (BNVA) | payer OTHER, SELFPAY | PROVIDERS: PCP Internal Medicine; Visit Provider Internal Medicine ==

== ENCOUNTER 2024-05-30 09:34 | Outpatient (AMB) | payer OTHER, SELFPAY ==
--- OUTSIDE RECORDS SUMMARY | 2024-05-30 09:36 | XMS_ITS | Encounter Summary ---
Author Organization [facility] Address [address] [phone] Care Team Providers Care Open Hearth Stockyard Supervisor Name Role Phone Prosper Harper MD Primary Care Provider [phone] Reason for Visit * Reason Comments Medication Refill Encounter Details Date Type Department Care Team (Late st Contact Info) Description 11/25/2021 Refill [facility] Gastroenterology, [place] [address] [place] [address] Lluvia Narvaez MD [address] [place] [address] Chronic idiopathic constipation Social History Tobacco Use [...] constipation documented in this encounter Care Teams Open Hearth Stockyard Supervisor Relationship Specialty Start Date End Date Prosper Harper MD [address] [place] [address] PCP - General 03/21/20 documented as of this encounter
--- OUTSIDE RECORDS SUMMARY | 2024-05-30 09:37 | XMS_ITS | Referral Summary ---
Author Organization [facility] Address [address] [place] [address] Care Team Providers Care Marzipan Molder Name Role Phone Prosper Harper MD [...] so, obtain the minor's consent prior to disclosure.[facility] Allergies Active Allergy Reactions Criticality Noted [...] Plan of Treatment Not on file Insurance [facility] MEDICAID Care Teams Marzipan Molder Relationship Specialty Start Date End Date Prosper Harper MD [address] [place] [address] PCP - General 03/21/20
--- OUTSIDE RECORDS SUMMARY | 2024-05-30 09:37 | XMS_ITS | Encounter Summary ---
Author Organization [facility] Address [address] [place] [address] Phone Care Team Providers Care Doll Wig Maker Rooted Hair Name Role Phone Unavailable Primary Care Provider Unavailabl e Encounter Details Date Type Department Care Team (Late st Contact Info) Description 05/14/2024 Orders Only [facility] [address] [place] [address] Jessica Cash ARNP [address] [phone] Recurrent and persistent hematuria with [...] Visit [facility] [address] [phone] Jessica Cash ARNP [address] [phone] documented as of this encounter Visit Diagnoses Diagnosis Recurrent and persistent hematuria with minimal change lesion Simple renal cyst documented in this encounter
--- OUTSIDE RECORDS SUMMARY | 2024-05-30 09:37 | XMS_ITS | Encounter Summary ---
Author Organization [facility] Address [address] [id number] Care Team Providers Care Sander Portable Machine Name Role Phone Prosper Harper MD Primary Care Provider [phone] Reason for Visit * Reason Comments Medication Refill Encounter Details Date Type Department Care Team (Late st Contact Info) Description 04/16/2021 [facility] [address] [place] [address] Helga Wilcox MD [address] [place] [phone] Chronic idiopathic constipation Social History Tobacco Use [...] constipation documented in this encounter Care Teams Sander Portable Machine Relationship Specialty Start Date End Date Prosper Harper MD [address] [place] [address] PCP - General 03/21/20 documented as of this encounter
--- OUTSIDE RECORDS SUMMARY | 2024-05-30 09:37 | XMS_ITS | Clinical Summary ---
Author Organization [facility] ity Address [address] [place] [address] Care Team Providers Care Warehouse Packaging Supervisor Name Role Phone Unavailable Primary Care [...] (1 - Male 3-dos e series) 02/20/2016 Meningococcal B Vacine (1 of 2 - Standard) 2017 DTaP,Tdap,and Td Vaccines (1 - Tdap) 02/20/2020 [...]
--- OUTSIDE RECORDS SUMMARY | 2024-05-30 09:37 | XMS_ITS | Clinical Summary ---
Author Organization [facility] Address [address] [facility] [address] [place] [address] Phone Care Team Providers Care Vegetable Specker Name Role Phone Unavailable Primary Care Provider [...] [place] [address] [place] [address] Jessica Cash ARNP Recurrent and persistent hematuria [...] Visit [facility] P.CVickie [address] [phone] Jessica Cash ARNP [address] [phone] Health Maintenance Due Date Last Done Comments Pneumococcal Vaccine: Pediat rics (0 to 5 Years) and At-Risk Patients (6 to 64 Years) (1 of 2 - PCV) 2007 Hepatitis B Vaccine (1 of 3 - 19+ 3-dose series) 02/19 Influenza Vaccine (#1) 2023 Insurance MEDICAID [place] [facility] ([id number])
--- OUTSIDE RECORDS SUMMARY | 2024-05-30 09:37 | XMS_ITS | Encounter Summary ---
Author Organization [facility] Address [address] [place] [address] Care Team Providers Care Preschool Teacher'S Assistant Name Role Phone Prosper Harper MD Primary Care Provider Reason for Visit * Reason Comments Medication Refill Encounter Details Date Type Department Care Team (Late st Contact Info) Description 10/21/2021 Refill [facility] Gastroenterology, [place] [address] [place] [address] Lluvia Narvaez MD [address] [place] [address] Chronic idiopathic constipation Social History Tobacco Use [...] constipation documented in this encounter Care Teams Preschool Teacher'S Assistant Relationship Specialty Start Date End Date Prosper Harper MD [address] [place] [address] PCP - General 03/21/20 documented as of this encounter
--- OUTSIDE RECORDS SUMMARY | 2024-05-30 09:37 | XMS_ITS | Clinical Summary ---
Author Organization [facility] Address [address] [place] [address] Care Team Providers Care Airport Operations Specialist Name Role Phone Prosper Harper MD [...] so, obtain the minor's consent prior to disclosure.[facility] Allergies Active Allergy Reactions Criticality Noted [...] about your child you'd like help w [facility]? Not on file 12/26/2022 Share good [...] patient's age to complete this topic Insurance [place] [address] [address] MEDICAID Care Teams Airport Operations Specialist Relationship Specialty Start Date End Date Prosper Harper MD [address] [place] [address] PCP - General 03/21/20
[2024-05-30 09:47] VITALS: BP 100/70; PULSE 93; RESP 16; TEMP 36.9; O2SAT 95; BMI 34.9
--- NOTE | 2024-05-30 09:47 | A.OFFPC_ITS ---
Vital Signs 05/30/24 09:47 Height 5 ft 11 in Weight 250 lb BMI 34.9 BP 100/70 Blood Pressure Location Lt brachial Position Sitting Respiration 16 Pulse 93 Pulse Source Pulse Oximeter Temp 98.4 F Temp Source Oral Pulse Oximetry (%) 95 Oxygen Delivery Method Room Air Intake Visit Reasons: Bilateral eye muscle surgery 06/22/24 Dr. Schmid Intake Note: Pt is here today for his pre-op bilateral eye muscle surgery 06/22/24 Dr. Schmid Allergies enviormental allergies Allergy (Intermediate, Uncoded 05/30/24 10:19) sinus pressure sneezing From RITALIN Allergy (Intermediate, Uncoded 05/30/24 10:19) RASH Medication List - Last Reconciled 05/30/24 by Brynn Christianson MD alclometasone 0.05% topical clonidine HCl 0.1 mg PO BID clonidine HCl 0.2 mg PO BEDTIME dextroamphetamine-amphetamine 20 mg ER 1 cap PO QAM dextroamphetamine-amphetamine 30 mg ER 1 cap PO DAILY docusate sodium 100 mg PO BEDTIME dupilumab (Dupixent) 300 mg subcut Q2W fluticasone propionate 50 mcg/actuation 2 sprays intranasal DAILY PRN fluvoxamine ER 150 mg PO BEDTIME levocetirizine 5 mg PO DAILY lithium carbonate ER 300 mg PO BID omeprazole 20 mg PO DAILY risperidone 4 mg PO BID tacrolimus 0.1% topical BID PRN trazodone 150 - 300 mg PO BEDTIME PRN triamcinolone acetonide 0.5% topical BID Trulance (plecanatide) 3 mg PO DAILY NS Tobacco use date assessed: 05/30/24 Dental Screening Dental Screen Date: 05/26/24 HPI Bilateral eye muscle surgery 06/22/24 Dr. Schmid HPI Details 24-year-old male with history of eczema, IBS with constipation, hypertriglyceridemia, autism spectrum disorder with r ADHD, here today for preoperative exam for HPI Comments History of Present Illness Details 24-year-old male with medical history of Autism, ADHD, IBS with constipation, hypertriglyceridemia, here today for preoperative exam for surgical repair of alternating exotropia, which is scheduled for 06/22/2024, requested by Dr. Schmid. Patient is accompanied today by his mother, from whom most of the history is obtained. Has been feeling well, with no complaints at present time except for intermittent episodes of constipation. [facility], [facility] Medical History (Updated 05/30/24 @ 10:48 by Brynn Christianson MD) Alternating exotropia Abdominal pain Irritable bowel syndrome with constipation Eczema History of eye muscle disorder ADHD (attention deficit hyperactivity disorder), predominantly hyperactive impulsive type DMDD (disruptive mood dysregulation disorder) Autism spectrum disorder with accompanying language impairment and intellectual disability, requiring substantial support Melanocytic nevus of trunk Melanocytic nevi of scalp and neck Xerosis cutis Hypertriglyceridemia without hypercholesterolemia Autism Surgical History H/O circumcision Hx of umbilical hernia repair Family History Other Adopted (not a blood relative) Social History Household Members Other:: Patient lives with mother Dora Housing: Apartment Are you a primary care advocate to a significant other at home: No Do you presently have visiting nurse or other home services: Yes (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 1. Little interest or pleasure in doing things: not at all 2. Feeling down, depressed, or hopeless: not at all 3. Trouble falling or staying asleep, or sleeping too much: not at all 4. Feeling tired or having little energy: not at all 5. Poor appetite or overeating: not at all 6. Feeling bad about yourself - or that you are a failure or have let yourself or your family down: not at all 7. Trouble concentrating on things, such as reading the newspaper or watching television: not at all 8. Moving or speaking so slowly that other people could have noticed. Or the opposite - being so fidgety or restless that you have been moving around a lot more than usual: not at all 9. Thoughts that you would be better off or of hurting yourself in some way: not at all Total score: 0 Source: Developed by Drs. Brian Hannah, Liz Thomas, Ananda Morse and colleagues, with an educational tigre from [employer] Thrive Questionnaire Date Thrive assessed: 05/19/24 I am a: Patient What is your living situation today?: I have a steady place to live Within the past 12 months, did the food you bought not last and you didn't have the money to get more?: Never true Within the past 12 months, did you worry whether your food would run out before you got money to buy more?: Never true Do you have trouble paying for medicines?: No Do you have trouble getting transportation to medical appointments?: No Do you have trouble paying your heating and electricity bill?: No Do you have trouble taking care of your child, family member or friend?: No Do you have trouble with day-to-day activities such as bathing, preparing meals, shopping, managing finances, etc.?: I choose not to answer this question Are you currently unemployed and looking for a job?: I choose not to answer this question Are you interested in more education?: No Please select the resources that you would like help with: None Currently or been in a relationship where the following occur: No concerns reported THRIVE Score: 0 AUDIT C Alcohol Use Questionnaire (AUDIT-C) 1. How often do you have a drink containing alcohol?: Never Total Score: 0 KRYSTA-7 AMB Questionnaire KRYSTA-7 Date KRYSTA - 7 assessed: 05/19/23 Trouble relaxin = Not at all Source: Developed by Drs. Brian Hannah, Liz Thomas, Ananda Morse and colleagues, with an educational tigre from [employer] Review of Systems Const All systems reviewed & are unremarkable except as noted in HPI and below Reports no additional complaints Eyes Reports no additional complaints ENT Reports no additional complaints Card Reports no additional complaints Resp Reports no additional complaints GI Reports no additional complaints Reports no additional complaints Musc Reports no additional complaints Neuro Reports no additional complaints Psych Reports no additional complaints Endo Reports no additional complaints Roc/Lymph Denies easy bleeding and Denies easy bruising Aller/Immun Reports no additional complaints Physical exam (Primary Care) Vital Signs: Last Vital Signs Temp 98.4 F 05/30/24 09:47 Pulse 93 05/30/24 09:47 Resp 16 05/30/24 09:47 BP 100/70 05/30/24 09:47 Pulse Ox 95 05/30/24 09:47 Oxygen Delivery Method Room Air 05/30/24 09:47 BMI result Body Mass Index 34.9 Tobacco/Smoking Status: Tobacco use Status Tobacco use date assessed 05/30/24 05/30/24 09:49 Patient Tobacco Use Status Never used Tobacco 05/30/24 09:49 e-Cigarette/Vaping Use Never Used 05/30/24 09:49 PHQ-9: PHQ-9 Score PHQ-9: Total score 0 05/30/24 10:49 Thrive Assessment: Date of Thrive Assessment Date Thrive assessed 05/19/24 05/30/24 09:49 Currently or been in a relationship where the following occur: No concerns reported Const General: comfortable, no acute distress and alert Orientation/consciousness: oriented to person HENMT Head: Yes normocephalic Ears: external ears normal General nose exam: Normal external nose present Face and sinus: Yes face symmetric Mouth: Normal oral and palatal mucosa present and moist mucous membranes Eyes Other: Slight turning outward of both eyes Neck Neck: Yes full ROM, Yes no lymphadenopathy and Yes supple Thyroid: Thyroid normal Resp Auscultation: clear to auscultation bilaterally Cardio Other: S1-S2 present regular rate and rhythm GI Inspection: Yes obesity and Yes striae Palpation (GI): Soft to palpation, nontender and no guarding Auscultation: normal bowel sounds Skin General skin exam: no rashes or lesions noted Neuro General: oriented to person, moves all extremities and no focal motor deficits Extrem General: Yes full ROM, Yes no joint enlargement, Yes no clubbing, cyanosis or edema and Yes no pedal edema Coding Level of Care Code Est Pt Level 4 (64147) Diagnoses Preoperative examination Z01.818 ADHD (attention deficit hyperactivity disorder), predominantly hyperactive impulsive type F90.1 Autism spectrum disorder with accompanying language impairment and intellectual disability, requiring substantial support F84.0 Irritable bowel syndrome with constipation K58.1 Alternating exotropia H50.15 Hypertriglyceridemia without hypercholesterolemia E78.1 Assessment & Plan Assessment & Plan (1) Preoperative examination: Code(s): Z01.818 - Encounter for other preprocedural examination Plan: 24-year-old male with history of exotropia, scheduled for surgical repair on 06/22/[address] Schmid. His blood pressure is 100/70, with a pulse rate of 93 beats per minute, patient without any complaints at present time. He has no knownPre cardiac or o pulmonary disease. perative exam was unremarkable . He hasa low cardiac risk index for proposed surgery (2) ADHD (attention deficit hyperactivity disorder), predominantly hyperactive impulsive type: Code(s): F90.1 - Attention-deficit hyperactivity disorder, predominantly hyperactive type Category: Medical Plan: Currently followed by psychiatry (3) Autism spectrum disorder with accompanying language impairment and intellectual disability, requiring substantial support: Comment: sees Dr Armando Diaz at [facility] Code(s): F84.0 - Autistic disorder Category: Medical Plan: Followed by psychiatry (4) Irritable bowel syndrome with constipation: Code(s): K58.1 - Irritable bowel syndrome with constipation Category: Medical Plan: Continue with docusate sodium 100 mg at bedtime, and advised to try Trulance 3 mg daily, prescription already sent, and continue on omeprazole 20 mg daily which has been helping (5) Alternating exotropia: Code(s): H50.15 - Alternating exotropia Category: Medical Plan: Scheduled for surgical repair 06/22/[address] Schmid (6) Hypertriglyceridemia without hypercholesterolemia: Code(s): E78.1 - Pure hyperglyceridemia Category: Medical Plan: Stressed importance following a healthy diet, avoidance of a lot of processed foods, potato chips, pastries and bread as well as rice. Again reinforced importance of doing regular exercise to promote weight loss
== END 2024-05-30 10:48 | disposition home or self-care (01) ==
PROVIDERS: PCP Internal Medicine; Visit Provider Internal Medicine
DX: Z01.818 Encounter for other preprocedural examination (principal); F90.1 Attention-deficit hyperactivity disorder, predominantly hyperactive type; F84.0 Autistic disorder; K58.1 Irritable bowel syndrome with constipation; H50.15 Alternating exotropia; E78.1 Pure hyperglyceridemia

== ENCOUNTER → 2024-05-30 09:34 | Outpatient (BNVA) | payer OTHER, SELFPAY | PROVIDERS: PCP Internal Medicine; Visit Provider Internal Medicine | DX: Z01.818 Encounter for other preprocedural examination (principal); F90.1 Attention-deficit hyperactivity disorder, predominantly hyperactive type; F84.0 Autistic disorder; K58.1 Irritable bowel syndrome with constipation; H50.15 Alternating exotropia; E78.1 Pure hyperglyceridemia | CPT/HCPCS: 99212 ==

== ENCOUNTER 2024-06-21 07:35 | Outpatient (REF) | payer OTHER, SELFPAY ==
--- NOTE | ~2024-06-21 | US_ITS ---
CLINICAL HISTORY: R10.9 - Unspecified abdominal pain US abdomen complete Comparison: CT/SR - CT ABDOMEN PELVIS WO IV CON - 04/04/22 10:57 EST Findings: Examination is limited due to body habitus. The visualized pancreas is normal. The aorta and inferior vena cava are normal caliber. The liver is normal in size with increase of echogenicity. There is no intrahepatic bile duct dilatation. The common duct is not seen. The gallbladder is normal. There is no sonographic Castillo sign. The right kidney is 9.1 cm in length. The left kidney is 11 cm in length. 4 mm midpole kidney stone. 9 x 6 x 8 mm lower pole cyst with calcification. The spleen is mildly enlarged. No ascites. IMPRESSION: Increased echogenicity of the liver favored to represent hepatic steatosis. Nonobstructing left kidney stone. Mild splenomegaly. This document has been electronically signed by: John Ramos MD on 06/21/2024 16:08:25
--- OUTSIDE RECORDS SUMMARY | 2024-06-21 07:37 | XMS_ITS | Clinical Summary ---
Author Organization [facility] Address [address] [place] [address] Care Team Providers Care Shoe Fitter Name Role Phone Unavailable Primary Care Provider [...]
--- OUTSIDE RECORDS SUMMARY | 2024-06-21 07:37 | XMS_ITS | Clinical Summary ---
Author Organization [facility] Address [address] [address] Phone Care Team Providers Care Sales Engagement Manager Name Role Phone Korey Christianson MD Primary Care Provider +1- [phone] Allergies Active Allergy Reactions Criticality Noted Date [...] 10 DAYS 2 06/06/19 [facility]continu ed([facility] Active Problems Problem Noted Date Diagnosed [...] Office Communication [facility] [address] [phone] Andrew Bashir MD 06/06/2024 4:15 PM EST Office Visit [facility]. [address] [facility] [address] [place] [phone] Jessica Cash ARNP Recurrent and persistent hematuria with minimal change lesion (Primary Dx); Simple renal cyst 05/14/2024 Orders Only [facility] [address] [place] [phone] Jessica Cash ARNP Recurrent and persistent hematuria [...] Office Visit [facility] [address] [phone] Jessica Cash ARNP [address] [phone] Health Maintenance Due Date Last Done Comments Pneumococcal Vaccine: Pediat rics (0 to 5 Years) and At-Risk Patients (6 to 64 Years) (1 of 2 - PCV) 2007 Hepatitis B Vaccine (1 of 3 - 19+ 3-dose series) 02/19 Influenza Vaccine (#1) [address] [place] [address] ([id number]) [facility] ([id number]) Care Teams Sales Engagement Manager Relationship Specialty Start Date End Date Korey Christianson MD [address] [place] [phone] PCP - General Internal Medicine 06/06/24
--- OUTSIDE RECORDS SUMMARY | 2024-06-21 07:37 | XMS_ITS | Encounter Summary ---
Author Organization [facility] Address [address] [address] Phone Care Team Providers Care Linderman Operator Name Role Phone Korey Christianson MD Primary Care Provider +1- [phone] Encounter Details Date Type Department Care Team (Late st Contact Info) Description 06/07/2024 Office Communication [facility] [address] [phone] Andrew Bashir MD [address] [phone] Social History Tobacco Use Types [...] Office Visit [facility] [address] [phone] Jessica Cash ARNP [address] [facility] [address] [place] [phone] documented as of this encounter Visit Diagnoses Not on filedocumented in this encounter Care Teams Linderman Operator Relationship Specialty Start Date End Date Korey Christianson MD [address] [place] [address] PCP - General Internal Medicine 06/06/24 documented as of this encounter
--- OUTSIDE RECORDS SUMMARY | 2024-06-21 07:37 | XMS_ITS | Encounter Summary ---
Author Organization [facility] Address [address] [address] Phone Care Team Providers Care Syrup Maker Cook Name Role Phone Korey Christianson MD Primary Care Provider +1- [phone] Reason for Visit * Reason Comments Blood in Urine Encounter Details Date Type Department Care Team (Late st Contact Info) Description 06/06/2024 4:15 PM EST Office Visit [facility]. [address] [address] Jessica Cash ARNP [address] [phone] Recurrent and persistent hematuria with [...] for repeat Abd U/S on 06/21/2024 at [facility]. Return visit in 1 year and as needed for follow-up SALAS Yip Cosigned by Andrew Bashir MD at 06/08/2024 8:19 PM EST documented in this encounter Plan of Treatment Upcoming Encounters Date Type Department Care Team (Late st Contact Info) Description 06/06/2025 10:30 AM EST Office Visit [facility] [address] [phone] Jessica Cash ARNP [address] [address] Scheduled Orders Name Type Priority [...] cyst documented in this encounter Care Teams Syrup Maker Cook Relationship Specialty Start Date End Date Korey Christianson MD [address] [place] [phone] PCP - General Internal Medicine 06/06/24 documented as of this encounter
== END 2024-06-21 07:36 | disposition home or self-care (01) ==
LOC: HO.US 07:35
PROVIDERS: PCP Internal Medicine; Visit Provider Internal Medicine
DX: R10.9 Unspecified abdominal pain (principal)
CPT/HCPCS: 76700

== ENCOUNTER → 2024-06-21 07:37 | Outpatient (BNV) | payer OTHER, SELFPAY | PROVIDERS: PCP Internal Medicine; Visit Provider Nuclear Medicine | DX: R10.9 Unspecified abdominal pain (principal) | CPT/HCPCS: 76700 ==

== ENCOUNTER 2024-06-22 07:27 | Day surgery (SDC) | payer OTHER, SELFPAY ==
--- OUTSIDE RECORDS SUMMARY | 2024-06-10 12:55 | XMS_ITS | Encounter Summary ---
Author Organization [facility] Address [address] [id number] Care Team Providers Care Newspaper Photojournalist Name Role Phone Prosper Harper MD Primary Care Provider [phone] Reason for Visit * Reason Comments Medication Refill Encounter Details Date Type Department Care Team (Late st Contact Info) Description 04/16/2021 Refill [facility] [address] [place] [address] Helga Wilcox MD [address] [place] [id number] Chronic idiopathic constipation Social History Tobacco Use [...] constipation documented in this encounter Care Teams Newspaper Photojournalist Relationship Specialty Start Date End Date Prosper Harper MD [address] [place] [id number] PCP - General 03/21/20 documented as of this encounter
--- OUTSIDE RECORDS SUMMARY | 2024-06-10 12:55 | XMS_ITS | Encounter Summary ---
Author Organization [facility] Address [address] [phone] Care Team Providers Care Regional Loss Prevention Manager Name Role Phone Prosper Harper MD Primary Care Provider Reason for Visit * Reason Comments Medication Refill Encounter Details Date Type Department Care Team (Late st Contact Info) Description 11/25/2021 Refill [facility] Gastroenterology, [place] [address] [place] [address] Lluvia Narvaez MD [address] [place] [id number] Chronic idiopathic constipation Social History Tobacco Use [...] constipation documented in this encounter Care Teams Regional Loss Prevention Manager Relationship Specialty Start Date End Date Prosper Harper MD [address] [place] [id number] PCP - General 03/21/20 documented as of this encounter
--- OUTSIDE RECORDS SUMMARY | 2024-06-10 12:55 | XMS_ITS | Encounter Summary ---
Author Organization [facility] Address [address] [address] Phone Care Team Providers Care Petroleum Blending Plant Operator Name Role Phone Korey Christianson MD Primary Care Provider [phone] Encounter Details Date Type Department Care Team (Late st Contact Info) Description 06/07/2024 Office Communication [facility] [address] [phone] Andrew Bashir MD [address] [phone] Social History Tobacco Use Types Packs/Day Years [...] encounter Miscellaneous Notes * Telephone Encounter - Apryl Peters - 06/07/2024 8:18 AM EST [facility] U/S results mailed to pt. documented in this encounter Plan of Treatment Upcoming Encounters Date Type Department Care Team (Late Contact Info) Description 06/06/2025 10:30 AM EST Office Visit [facility] [address] [phone] Jessica Cash ARNP [address] [facility] [address] [place] [phone] documented as of this encounter Visit Diagnoses Not on filedocumented in this encounter Care Teams Petroleum Blending Plant Operator Relationship Specialty Start Date End Date Korey Christianson MD [address] [place] [address] PCP - General Internal Medicine 06/06/24 documented as of this encounter
--- OUTSIDE RECORDS SUMMARY | 2024-06-10 12:55 | XMS_ITS | Clinical Summary ---
Author Organization [facility] Address [address] [place] [address] Care Team Providers Care Freelance Interpreter/Translator Name Role Phone Unavailable Primary Care Provider [...]
--- OUTSIDE RECORDS SUMMARY | 2024-06-10 12:55 | XMS_ITS | Encounter Summary ---
Author Organization [facility] Address [address] [place] [address] Phone Care Team Providers Care Malt Liquors Sales Representative Name Role Phone Unavailable Primary Care Provider Unavailabl e Encounter Details Date Type Department Care Team (Late st Contact Info) Description 05/14/2024 Orders Only [facility] [address] [place] [address] Jessica Cash ARNP [address] [phone] Recurrent and persistent hematuria with [...] Care Team (Late st Contact Info) Description 06/06/2025 10:30 AM EST Office Visit [facility] [address] [phone] Jessica Cash ARNP [address] [phone] documented as of this encounter Visit Diagnoses Diagnosis Recurrent and persistent hematuria with minimal change lesion Simple renal cyst documented in this encounter
--- OUTSIDE RECORDS SUMMARY | 2024-06-10 12:55 | XMS_ITS | Clinical Summary ---
Author Organization [facility] Address [address] [place] [address] Care Team Providers Care Grounds Person Name Role Phone Prosper Harper MD Primary [...] so, obtain the minor's consent prior to disclosure.[facility] Allergies Active Allergy Reactions Criticality Noted [...] about your child you'd like help w [facility]? Not on file 12/26/2022 Share good [...] patient's age to complete this topic Insurance [address] [address] MEDICAID Care Teams Grounds Person Relationship Specialty Start Date End Date Prosper Harper MD [address] [place] [address] PCP - General 03/21/20
--- OUTSIDE RECORDS SUMMARY | 2024-06-10 12:55 | XMS_ITS | Encounter Summary ---
Author Organization [facility] Address [address] [address] Phone Care Team Providers Care News Video Editor Name Role Phone Korey Christianson MD Primary Care Provider [phone] Reason for Visit * Reason Comments Blood in Urine Encounter Details Date Type Department Care Team (Late st Contact Info) Description 06/06/2024 4:15 PM EST Office Visit [facility]. [address] [phone] Jessica Cash ARNP [address] [phone] Recurrent and persistent hematuria with minimal change lesion (Primary Dx); Simple renal cyst Social History Tobacco Use [...] on file documented as of this encounter Last Filed Vital Signs Vital Sign Reading Time Taken Comments Blood Pressure 100/70 06/06/2024 3:34 PM EST Pulse 100 06/06/2024 3:34 PM EST Temperature - - Respiratory Rate - - Oxygen Saturation - - Inhaled Oxygen Concentration - - Weight 114 kg (252 lb) 06/06/2024 3:34 PM EST Height - - Body Mass Index 36.16 09/18/2022 2:53 PM EDT documented in this encounter Progress Notes * Jessica Cash ARNP - 06/06/2024 4:15 PM EST Images from the original note were not included. Patient Name: Dominic Betancourt, Male Date of : 2000, 24 y.o. Date: 06/06/2024 Orders Placed This Encounter Urinalysis without microscopic Renal function panel Urine Albumin / Creatinine Ratio Urine Protein / creatinine ratio Urinalysis with microscopic CBC History of Present Illness Dominic Betancourt is a 24 y.o. male here in follow-up for hematuria and renal cyst. Denies currentvisual hematuria or dysuria. CT scan of Abd/pelvis on 07/31/2022 showed Normal Right kidney, Left kidney with 1.1 cm simple cyst - not changed compared to 01/2020 US, normal appearing bladder. The following portions of the patient's chart were reviewed in this encounter and updated as appropriate: Allergies Meds Problems Med Hx Surg Hx Fam Hx Review of Systems Constitutional: Negative for chills, fever, weight gain and weight loss. HENT: Negative for nosebleeds. Respiratory: Negative for cough and shortness of breath. Cardiovascular: Negative for chest pain, palpitations and leg swelling. Gastrointestinal: Negative for diarrhea, vomiting and poor appetite. Genitourinary: Negative for dysuria, flank pain, frequency, hematuria, urgency and nocturia. Skin: Negative for rash. Neurological: Negative for dizziness, tingling, numbness and headaches. Endo/Heme/Allergies: Does not bruise/bleed easily. Psychiatric/Behavioral: Negative. Medication List Current Outpatient Medications Medication Sig Dispense Refill Adderall XR 30 MG 24 hr capsule Take 1 capsule by mouth 1 (one) time each day alclomethasone (ACLOVATE) 0.05 % cream cloNIDine (CATAPRES) 0.1 MG tablet Take 0.1 mg by mouth 2 (two) times a day cloNIDine (CATAPRES) 0.2 MG tablet Take 1 tablet by mouth 1 (one) time each day Docusate Sodium (DSS) 100 MG capsule Take 100 mg by mouth twice a day Dupixent 300 MG/2ML solution pen-injector fluvoxaMINE (LUVOX) 100 MG tablet Take 1 tablet by mouth 1 (one) time each day lithium (LITHOBID) 300 MG CR tablet Take 300 mg by mouth in the morning and 300 mg at noon and 300 mg in the evening. Do not crush, chew, or split.. LORazepam (ATIVAN) 1 MG tablet Take 1 tablet by mouth if needed omeprazole (PriLOSEC) [address] capsule Take 20 mg by mouth 1 (one) time each day risperiDONE (RisperDAL-M) 4 MG dispersible tablet Take 4 mg by mouth 2 (two) times a day traZODone (DESYREL) 150 MG tablet Take 150 mg by mouth every night Triamcinolone Acetonide 0.025 % lotion APPLY TWICE DAILY TO SCALP NEEDED FOR FLARES No current facility-administered medications for this visit. Allergy List Allergies Allergen Reactions Methylphenidate Other (see comments) Physical Exam BP 100/70 Pulse 100 Wt 252 lb (114 kg) BMI 36.16 kg/m?? Vitals reviewed. Constitutional: He is oriented to person, place, and time. He does not appear ill. No distress. HEENT: Mouth/Throat: Oropharynx is clear and moist. Eyes: Conjunctivae are normal. Left lazy eye - pending corrective surgery Neck: No JVD present. Cardiovascular: Normal rate and regular rhythm. He exhibits no edema. Pulmonary/Chest: Effort normal and breath sounds normal. Abdominal: Soft. He exhibits no distension. There is no abdominal tenderness. Neurological: He is alert and oriented to person, place, and time. Autistic behavior, verbalizes in partial sentences Skin: Skin is warm and dry. No rash noted. No erythema. Psychiatric: Autistic behavior, cooperative Labs Chemistry Lab Units 05/12/23 0000 CREATININE mg/dL 1.00 BUN mg/dL 10 POTASSIUM 4.3 SODIUM 140 CO2 mmol/L 26 CHLORIDE 103.0 ALBUMIN g/dL 4.5 EGFRNAFR 115 WBC AUTO 10*3/ML 8.3 HEMATOCRIT 45.1 HEMOGLOBIN 15.3 PLATELETS AUTO 10*3/UL 249 Bone Mineral Lab Units 05/12/23 0000 CALCIUM mg/dL 9.9 ASSESSMENT/PLAN: Hematuria w/ minimal change lesion: -Check Urinalysis today -Creat stable - normal renal function -Normal Lytes -No proteinuria -No Anemia Simple Renal Cysts: -Most recent Renal US as of 07/31/22 showed stable single cysts in each kidney. -Has an appointment for repeat Abd U/S on 06/21/2024 at [facility]. Return visit in 1 year and as needed for follow-up SALAS Yip Cosigned by Andrew Bashir MD at 06/08/2024 8:19 PM EST documented in this encounter Plan of Treatment Upcoming Encounters Date Type Department Care Team (Late st Contact Info) Description 06/06/2025 10:30 AM EST Office Visit [facility] [address] [address] Jessica Cash ARNP [address] [address] Scheduled Orders Name Type Priority Associated Diagnoses Orde r Schedule Urinalysis without microscopic Lab Routine Recurrent and persistent hematuria with minimal change lesion Simple renal cyst Expected: 06/06/2024, Expires: 07/04/2025 Renal function panel Lab Routine Recurrent and persistent hematuria with minimal change lesion Simple renal cyst Expected: 04/13/2025, Expires: 07/04/2025 Urine Albumin / Creatinine Ratio Lab Routine Recurrent and persistent hematuria with minimal change lesion Simple renal cyst Expected: 04/13/2025, Expires: 07/04/2025 Urine Protein / creatinine ratio Lab Routine Recurrent and persistent hematuria with minimal change lesion Simple renal cyst Expected: 04/13/2025, Expires: 07/04/2025 Urinalysis with microscopic Lab Routine Recurrent and persistent hematuria with minimal change lesion Simple renal cyst Expected: 04/13/2025, Expires: 07/04/2025 CBC Lab Routine Recurrent and persistent hematuria with minimal change lesion Simple renal cyst Expected: 04/13/2025, Expires: 07/04/2025 documented as of this encounter Visit Diagnoses Diagnosis Recurrent and persistent hematuria with minimal change lesion- Primary Simple renal cyst documented in this encounter Care Teams News Video Editor Relationship Specialty Start Date End Date Korey Christianson MD [address] [place] [id number] PCP - General Internal Medicine 06/06/24 documented as of this encounter
--- OUTSIDE RECORDS SUMMARY | 2024-06-10 12:55 | XMS_ITS | Clinical Summary ---
Author Organization [facility] Address [address] [address] Phone Care Team Providers Care Hvac Specialist Name Role Phone Korey Christianson MD Primary Care Provider +1- [phone] Allergies Active Allergy Reactions Criticality Noted Date [...] 100 mg by mouth twice a day 1 Active fluvoxaMINE (LUVOX) 100 MG tablet Take 1 tablet by mouth 1 (one) time each day 1 Active LORazepam (ATIVAN) 1 MG tablet Take 1 tablet by mouth if needed 1 Active Adderall XR 30 MG 24 hr capsule Take 1 capsule by mouth 1 (one) time each day 1 Active cloNIDine (CATAPRES) 0.2 MG tablet Take 1 tablet by mouth 1 (one) time each day 1 Active Triamcinolone Acetonide 0.025 % lotion APPLY TWICE DAILY TO SCALP NEEDED FOR FLARES 2 Active alclomethasone (ACLOVATE) 0.05 % cream 2 Active Dupixent 300 MG/2ML solution pen-injector Active lithium (LITHOBID) 300 MG CR tablet Take 300 mg by mouth in the morning and 300 mg at noon and 300 mg in the evening. Do not crush, chew, or split.. Active cephalexin (KEFLEX) 500 MG capsule TAKE 1 CAPSULE BY MOUTH 3 TIMES A DAY FOR 10 DAYS 2 06/06/19 [facility]u ed[facility] Active Problems Problem Noted Date Diagnosed Date Recurrent and persistent hem aturia with minimal change lesion 06/06/2024 Aggressive behavior 08/08/2021 Insomnia 08/08/2021 Morbid obesity 08/08/2021 Psychotic disorder 08/08/2021 Abdifatah hematuria 07/17/2020 Autism spectrum disorder 07/17/2020 Lactose intolerance 05/28/2020 Urethral discharge 05/14/2020 Periumbilical pain 04/10/2020 Simple renal cyst Gross hematuria Nephrolithiasis Resolved Problems Problem Noted Date Diagnosed Date Resolved Date Internal hemorrhoids grade I 05/28/2020 05/17/2021 Encounters Date Type Department Care Team Description 06/07/2024 Office Communication [facility] [address] [phone] Andrew Bashir MD 06/06/2024 4:15 PM EST Office Visit [facility]. [address] [facility] [address] [place] [phone] Jessica Cash ARNP Recurrent and persistent hematuria with minimal change lesion (Primary Dx); Simple renal cyst 05/14/2024 Orders Only [facility] [address] [place] [phone] Jessica Cash ARNP Recurrent and persistent hematuria [...] EST Inhaled Oxygen Concentration - - Weight 114 kg (252 lb) 06/06/2024 3:34 PM EST Height 177.8 cm (5' 10 ) 09/18/2022 2:53 PM EDT Body Mass Index 36.16 09/18/2022 2:53 PM EDT Plan of Treatment Upcoming Encounters Date Type Department Care Team (Late st Contact Info) Description 06/06/2025 10:30 AM EST Office Visit [facility] [address] [address] Jessica Cash ARNP [address] [phone] Health Maintenance Due Date Last Done Comments Pneumococcal Vaccine: Pediat rics (0 to 5 Years) and At-Risk Patients (6 to 64 Years) (1 of 2 - PCV) 2007 Hepatitis B Vaccine (1 of 3 - 19+ 3-dose series) 02/19 Influenza Vaccine (#1) [address] [place] [address] ([id number]) [facility] ([id number]) Care Teams Hvac Specialist Relationship Specialty Start Date End Date Korey Christianson MD [address] [place] [id number] PCP - General Internal Medicine 06/06/24
--- OUTSIDE RECORDS SUMMARY | 2024-06-10 12:55 | XMS_ITS | Encounter Summary ---
Author Organization [facility] Address [address] [place] [address] Care Team Providers Care Fisher Hand Line Name Role Phone Prosper Harper MD Primary Care Provider Reason for Visit * Reason Comments Medication Refill Encounter Details Date Type Department Care Team (Late st Contact Info) Description 10/21/2021 Refill [facility] Gastroenterology, [place] [address] [place] [address] Lluvia Narvaez MD [address] [place] [id number] Chronic idiopathic constipation Social History Tobacco Use [...] constipation documented in this encounter Care Teams Fisher Hand Line Relationship Specialty Start Date End Date Prosper Harper MD [address] [place] [phone] PCP - General 03/21/20 documented as of this encounter
[2024-06-16 10:42] VITALS: BMI 34.9
[2024-06-22] VITALS (8 sets, daily range): BP systolic 111–120; BP diastolic 63–76; PULSE 62–94; RESP 18–20; TEMP 36.1–36.9; O2SAT 93–96
--- NOTE | 2024-06-22 09:50 | HO.ANESPROP2 ---
Documented by User: Nenita Hurley NP 06/20/24 14:49 HPI - Anesthesia Eval Consult details Narrative: 24yo M for Bilateral Later Rectus Eye Muscle Recession Autism/Dev Delay - mother signs consents PMF Active Problems Active Problems: All Active Problems Disturbance in sleep behavior (Acute) Phimosis (Acute) Alternating exotropia (Acute) Irritable bowel syndrome with constipation (Acute) Eczema (Acute) Hypertriglyceridemia without hypercholesterolemia (Acute) Xerosis cutis (Acute) Melanocytic nevi of scalp and neck (Acute) Melanocytic nevus of trunk (Acute) Autism spectrum disorder with accompanying language impairment and intellectual disability, requiring substantial support (Acute) ADHD (attention deficit hyperactivity disorder), predominantly hyperactive impulsive type (Acute) Past Medical History Medical History Alternating exotropia Abdominal pain Irritable bowel syndrome with constipation Eczema History of eye muscle disorder ADHD (attention deficit hyperactivity disorder), predominantly hyperactive impulsive type DMDD (disruptive mood dysregulation disorder) Autism spectrum disorder with accompanying language impairment and intellectual disability, requiring substantial support Melanocytic nevus of trunk Melanocytic nevi of scalp and neck Xerosis cutis Hypertriglyceridemia without hypercholesterolemia Autism Family History Family History Other Adopted (not a blood relative) Family history of problems with anesthesia: No Surgical History Surgical History Hx of eye surgery H/O circumcision Hx of umbilical hernia repair History of Problems with Anesthesia: No Social History Social History Household Members Other:: mother Housing: Apartment Are you a primary family day carer to a significant other at home: No Do you presently have visiting nurse or other home services: Yes (is in day program and has [employer]) Patient Tobacco Use Status: Never used Tobacco e-Cigarette/Vaping Use: Never Used Use of substances other than those prescribed or required for medical reasons: No Have you been hit, kicked, punched, or otherwise hurt by someone within the past year? If so, by whom?: No Spiritual Healthcare Practices: none Orthodoxy Healthcare Practices: Anabaptism Cultural Healthcare Practices: none Are you DNR?: No Advance Directives: Yes (mother is legal guardian-paperwork on chart) Advance Directives Information Provided: Yes Advance Directives on File: Yes Advance Directives Date on File: 10/01/21 Recently lost weight without trying: No Eating poorly because of decreased appetite: No Nutrition Risks: Acute nausea or vomiting x1 week Poor oral hygiene: No (has never had a cavity-dentition is very good per mother) service: No Current occupational status: student Cognitive needs: Yes Hearing needs: No Vision needs: No Meds Allergies Allergy/AdvReac Type Severity Reaction Status Date / Time environmental allergies Allergy Intermediate sinus Verified 06/22/24 09:35 pressure/sneezing methylphenidate Allergy Intermediate Rash Verified 06/22/24 09:35 [From Ritalin] Home Medications ?Medication ?Instructions ?Recorded ?Confirmed ?Last Taken ?Type alclometasone 0.05 % topical 1 appl topical QPM 06/13/21 06/16/24 Unknown History ointment clonidine HCl 0.1 mg tablet 0.1 mg PO BID 06/13/21 06/16/24 06/22/24 History clonidine HCl 0.2 mg tablet 0.2 mg PO BEDTIME 06/13/21 06/16/24 Unknown History dextroamphetamine-amphetamine ER 1 cap PO QNOON 06/13/21 06/16/24 Unknown History 20 mg 24hr capsule,extend release docusate sodium 100 mg capsule 100 mg PO BEDTIME 06/13/21 06/16/24 Unknown History risperidone 4 mg tablet 4 mg PO BID 06/13/21 06/16/24 06/22/24 History tacrolimus 0.1 % topical ointment 1 appl topical BID PRN Skin 06/13/21 06/16/24 Unknown History Irritation trazodone 150 mg tablet 150 - 300 mg PO BEDTIME PRN 06/13/21 06/16/24 Unknown History Insomnia triamcinolone acetonide 0.5 % 1 appl topical BID 09/19/21 06/16/24 Unknown History topical ointment dextroamphetamine-amphetamine ER 1 cap PO QAM 11/08/21 06/16/24 06/22/24 History 30 mg 24hr capsule,extend release dupilumab 300 mg/2 mL subcutaneous 300 mg subcut Q2W 03/27/22 06/16/24 Unknown History pen injector (Dupixent) fluvoxamine 150 mg 150 mg PO BEDTIME 03/27/22 06/16/24 Unknown History capsule,extended release 24 hr levocetirizine 5 mg tablet 5 mg PO DAILY 05/19/23 06/16/24 Unknown History lithium carbonate 300 mg 300 mg PO BID 05/19/23 06/16/24 Unknown History tablet,extended release clonazepam 1 mg tablet 0.5 mg PO TID 06/16/24 06/16/24 06/22/24 History omeprazole 20 mg capsule,delayed 20 mg PO QAM 06/16/24 06/16/24 06/22/24 History release Exam Height,Weight and Vital Signs: Height 5 ft 11 in Weight 113.398 kg Assessment and Plan Assessment Anesthesia Assessment: Chart Reviewed Final Anesthetic Review Family History of Problems with Anesthesia: No History of Problems with Anesthesia: No Documented by User: Yajaira Cavanaugh DO 06/22/24 10:25 [facility] Past Medical History Medical History Alternating exotropia Abdominal pain Irritable bowel syndrome with constipation Eczema History of eye muscle disorder ADHD (attention deficit hyperactivity disorder), predominantly hyperactive impulsive type DMDD (disruptive mood dysregulation disorder) Autism spectrum disorder with accompanying language impairment and intellectual disability, requiring substantial support Melanocytic nevus of trunk Melanocytic nevi of scalp and neck Xerosis cutis Hypertriglyceridemia without hypercholesterolemia Autism Family History Family History Other Adopted (not a blood relative) Family history of problems with anesthesia: No Surgical History Surgical History Hx of eye surgery H/O circumcision Hx of umbilical hernia repair History of Problems with Anesthesia: No Social History Social History Household Members Other:: mother Housing: Apartment Are you a primary family day carer to a significant other at home: No Do you presently have visiting nurse or other home services: Yes (is in day program and has [employer]) Patient Tobacco Use Status: Never used Tobacco e-Cigarette/Vaping Use: Never Used Use of substances other than those prescribed or required for medical reasons: No Have you been hit, kicked, punched, or otherwise hurt by someone within the past year? If so, by whom?: No Spiritual Healthcare Practices: none Orthodoxy Healthcare Practices: Anabaptism Cultural Healthcare Practices: none Are you DNR?: No Advance Directives: Yes (mother is legal guardian-paperwork on chart) Advance Directives Information Provided: Yes Advance Directives on File: Yes Advance Directives Date on File: 10/01/21 Recently lost weight without trying: No Eating poorly because of decreased appetite: No Nutrition Risks: Acute nausea or vomiting x1 week Poor oral hygiene: No (has never had a cavity-dentition is very good per mother) service: No Current occupational status: student Cognitive needs: Yes Hearing needs: No Vision needs: No Meds Allergies Allergy/AdvReac Type Severity Reaction Status Date / Time environmental allergies Allergy Intermediate sinus Verified 06/22/24 09:35 pressure/sneezing methylphenidate Allergy Intermediate Rash Verified 06/22/24 09:35 [From Ritalin] Home Medications ?Medication ?Instructions ?Recorded ?Confirmed ?Last Taken ?Type alclometasone 0.05 % topical 1 appl topical QPM 06/13/21 06/16/24 Unknown History ointment clonidine HCl 0.1 mg tablet 0.1 mg PO BID 06/13/21 06/16/24 06/22/24 History clonidine HCl 0.2 mg tablet 0.2 mg PO BEDTIME 06/13/21 06/16/24 Unknown History dextroamphetamine-amphetamine ER 1 cap PO QNOON 06/13/21 06/16/24 Unknown History 20 mg 24hr capsule,extend release docusate sodium 100 mg capsule 100 mg PO BEDTIME 06/13/21 06/16/24 Unknown History risperidone 4 mg tablet 4 mg PO BID 06/13/21 06/16/24 06/22/24 History tacrolimus 0.1 % topical ointment 1 appl topical BID PRN Skin 06/13/21 06/16/24 Unknown History Irritation trazodone 150 mg tablet 150 - 300 mg PO BEDTIME PRN 06/13/21 06/16/24 Unknown History Insomnia triamcinolone acetonide 0.5 % 1 appl topical BID 09/19/21 06/16/24 Unknown History topical ointment dextroamphetamine-amphetamine ER 1 cap PO QAM 11/08/21 06/16/24 06/22/24 History 30 mg 24hr capsule,extend release dupilumab 300 mg/2 mL subcutaneous 300 mg subcut Q2W 03/27/22 06/16/24 Unknown History pen injector (Dupixent) fluvoxamine 150 mg 150 mg PO BEDTIME 03/27/22 06/16/24 Unknown History capsule,extended release 24 hr levocetirizine 5 mg tablet 5 mg PO DAILY 05/19/23 06/16/24 Unknown History lithium carbonate 300 mg 300 mg PO BID 05/19/23 06/16/24 Unknown History tablet,extended release clonazepam 1 mg tablet 0.5 mg PO TID 06/16/24 06/16/24 06/22/24 History omeprazole 20 mg capsule,delayed 20 mg PO QAM 06/16/24 06/16/24 06/22/24 History release Exam Exam Date and Time: 06/22/24 0950 Height,Weight and Vital Signs: Height 5 ft 11 in Weight 113.398 kg Vital Signs Temperature 97.6 F 06/22/24 09:12 Pulse Rate 62 06/22/24 09:12 Respiratory Rate 18 06/22/24 09:12 Blood Pressure 111/70 06/22/24 09:12 Pulse Oximetry 96 06/22/24 09:12 Oxygen Delivery Method Room Air 06/22/24 09:12 Temperature 97.6 F 06/22/24 09:12 Pulse Rate 62 06/22/24 09:12 Respiratory Rate 18 06/22/24 09:12 Blood Pressure 111/70 06/22/24 09:12 Pulse Oximetry 96 06/22/24 09:12 Oxygen Delivery Method Room Air 06/22/24 09:12 Airway Mallampati Class: III TM Dist: <=3cm Neck ROM: Full Loose/Missing/Broken Teeth: No (patient's mother reports that he does not have any loose or broken teeth) Heart: S1S2 Lungs: CTAB Assessment and Plan Assessment Anesthesia Assessment: Anesthesia Plan Discussed and Chart Reviewed Final Anesthetic Review Family History of Problems with Anesthesia: No History of Problems with Anesthesia: No NPO: Yes ASA Class: II Final Preanesthetic Review: No Changes in Pt Med Stat, Meds/Allgs Chart Reviewed, Consent Obtained/Reviewed and Anes Risks/Benef Reviewed Patient Risk: Low Procedure Risk: Low Anesthetic Plan Anesthetic Plan: GA and Agree w/ Assess. and Plan Disposition: Standard PACU
--- NOTE | 2024-06-22 12:26 | HO.OPHTHAL ---
Ophthalmology Operative Note Date of Service: 06/22/24 Narrative: Diagnosis exotropia. Postoperative diagnosis same. Procedure bilateral medial rectus resections of [address] Schmid. Anesthesia general. Complications none. The patient was brought the operative [place] under general anesthesia. The eyes were prepped and draped in the usual sterile ophthalmic fashion. A lid speculum was placed in the right eye and incision was created in the inferonasal fornix. The medial rectus was hooked and dissected free of its overlying fascial attachments. It was grasped with the insertion with the muscle clamp and a 5 mm resection marked off with cautery. The resection point was secured with a double-armed Vicryl suture and the distal muscle resected. The resection point was drawn forward to the original insertion with a Vicryl suture. Conjunctiva was closed with interrupted Vicryl sutures. An identical procedure was then performed on the left eye. The patient was then awoken from general anesthesia and discharged to postoperative recovery in good condition.
== END 2024-06-22 12:06 | disposition home or self-care (01) ==
PROVIDERS: PCP Internal Medicine; Visit Provider Ophthalmology
PROC: (CPT 67311; principal; 2024-06-22 10:50)
DX: H50.15 Alternating exotropia (principal); F84.0 Autistic disorder; F79 Unspecified intellectual disabilities; F80.9 Developmental disorder of speech and language, unspecified; F90.1 Attention-deficit hyperactivity disorder, predominantly hyperactive type; F34.81 Disruptive mood dysregulation disorder; E78.1 Pure hyperglyceridemia; D22.5 Melanocytic nevi of trunk; D22.4 Melanocytic nevi of scalp and neck; K58.1 Irritable bowel syndrome with constipation; L30.9 Dermatitis, unspecified; Z79.51 Long term (current) use of inhaled steroids; Z79.899 Other long term (current) drug therapy; Z88.8 Allergy status to other drugs, medicaments and biological substances
CPT/HCPCS: 67311; J0131; J1100; J1596; J1885; J2003; J2250; J2405; J2704; J3010

== ENCOUNTER 2024-08-15 08:02 | Outpatient (REF) | payer OTHER, SELFPAY ==
--- OUTSIDE RECORDS SUMMARY | 2024-08-15 08:09 | XMS_ITS | Clinical Summary ---
Author Organization [facility] Address [address] [place] [address] Care Team Providers Care Lime Vat Tender Name Role Phone Prosper Harper MD Primary [...] so, obtain the minor's consent prior to disclosure.[facility] Allergies Active Allergy Reactions Criticality Noted [...] about your child you'd like help w [facility]? Not on file 12/26/2022 Share good news [...] patient's age to complete this topic [place] [address] [place] [address] MEDICAID Member Subscriber Plan / Payer (Ef fective 2020-Present) Name:DOMINIC MURPHY Y Relation to Subscriber:Self Name:Dominic Cortez Payer ID:[id number] Group ID:Not on file Type:Medicaid Address: [facility] [address] [place] [id number] Care Teams Lime Vat Tender Relationship Specialty Start Date End Date Prosper Harper MD [address] [place] [address] PCP - General 03/21/20
--- OUTSIDE RECORDS SUMMARY | 2024-08-15 08:09 | XMS_ITS | Clinical Summary ---
Author Organization [facility] Address [address] [address] Phone Care Team Providers Care Insecticide Expert Name Role Phone Korey Christianson MD Primary Care Provider +1- [phone] Allergies Active Allergy Reactions Criticality Noted Date [...] Dupixent 300 MG/2ML solution pen-injector 03/14/2022 Active lithium (LITHOBID) 300 MG CR tablet [...] Office Communication [facility] [address] [address] Andrew Bashir MD 06/06/2024 4:15 PM EST Office Visit [facility] [address] [address] Jessica Cash ARNP Recurrent and persistent hematuria with minimal change lesion (Primary Dx); Simple renal cyst from Last 3 Months [...] Visit [facility] [address] [facility] [address] [place] [phone] Jessica Cash ARNP [address] [facility] [address] [place] [phone] Health Maintenance Due Date Last Done Comments Hepatitis B Vaccine (1 of 3 - 19+ 3-dose series) 02/19 Pneumococcal Vaccine: Peds ( 0 to 5 Years) and At-Risk Patients (6 to 49 Years) (1 of 2 - PCV) 02/20/2020 Influenza Vaccine (Season Ended) 2024 Insurance Medicaid [place] [facility] ([id number]) [facility] ([id number]) Care Teams Insecticide Expert Relationship Specialty Start Date End Date Korey Christianson MD [place] [address] PCP - General Internal Medicine 06/06/24
--- OUTSIDE RECORDS SUMMARY | 2024-08-15 08:09 | XMS_ITS | Encounter Summary ---
Author Organization [facility] Address [address] [place] [address] Care Team Providers Care Human Factors Engineer Name Role Phone Prosper Harper MD Primary Care Provider Reason for Visit * Reason Comments Medication Refill Encounter Details Date Type Department Care Team (Late st Contact Info) Description 11/25/2021 Refill [facility] Gastroenterology, [place] [address] [place] [address] Lluvia Narvaez MD [address] [place] [phone] Chronic idiopathic constipation Social History Tobacco Use [...] constipation documented in this encounter Care Teams Human Factors Engineer Relationship Specialty Start Date End Date Prosper Harper MD [address] [place] [address] PCP - General 03/21/20 documented as of this encounter
--- OUTSIDE RECORDS SUMMARY | 2024-08-15 08:09 | XMS_ITS | Encounter Summary ---
Author Organization [facility] Address [address] [id number] Care Team Providers Care Photocopying Machine Operator Name Role Phone Prosper Harper MD Primary Care Provider [phone] Reason for Visit * Reason Comments Medication Refill Encounter Details Date Type Department Care Team (Late st Contact Info) Description 04/16/2021 [facility] [address] [place] [address] Helga Wilcox MD [address] [place] [phone] Chronic idiopathic constipation Social History Tobacco Use [...] constipation documented in this encounter Care Teams Photocopying Machine Operator Relationship Specialty Start Date End Date Prosper Harper MD [address] [place] [address] PCP - General 03/21/20 documented as of this encounter
--- OUTSIDE RECORDS SUMMARY | 2024-08-15 08:09 | XMS_ITS | Clinical Summary ---
Author Organization [facility] it[facility] Address [address] [place] [address] Care Team Providers Care Service Representative Name Role Phone Unavailable Primary Care [...] Male 3-dos e series) 02/20/2016 Meningococcal B Vaccine (1 o f 2 - Standard) 2017 DTaP,Tdap,and Td Vaccines (1 - Tdap) 02/20/2020 Hepatitis B Vaccines (1 of 3 - 19+ 3-dose series) 02/20/2020 COVID-19 Vaccine (1 - 2023-2 5 season) 2023 Influenza Vaccine (Season Ended) 2024 HIB Vaccines Aged Out No longer eligi [...]
--- OUTSIDE RECORDS SUMMARY | 2024-08-15 08:09 | XMS_ITS | Encounter Summary ---
Author Organization [facility] Address [address] [place] [address] Care Team Providers Care Conference Interpreter Name Role Phone Prosper Harper MD Primary Care Provider [phone] Reason for Visit * Reason Comments Medication Refill Encounter Details Date Type Department Care Team (Late st Contact Info) Description 10/21/2021 Refill [facility] Gastroenterology, [place] [address] [place] [address] Lluvia Narvaez MD [address] [place] [phone] Chronic idiopathic constipation Social History Tobacco Use [...] constipation documented in this encounter Care Teams Conference Interpreter Relationship Specialty Start Date End Date Prosper Harper MD [address] [place] [address] PCP - General 03/21/20 documented as of this encounter
[2024-08-15 10:50] LABS: Alanine Aminotransferase 45 U/L (0-40); Anion Gap 11 (12-20); Aspartate Amino Transferase 50 U/L (5-37); Blood Urea Nitrogen 11 mg/dL (9-16); Calcium 9.7 mg/dL (8.4-10.2); Carbon Dioxide 25 mmol/L (22-29); Chloride 107 mmol/L (96-108); Cholesterol 150 mg/dL (<200); Estimated Glomerular Filt Rate > 60; Glucose Fasting 122 mg/dL (60-99); HDL Cholesterol 27 mg/dL (>40); LDL Cholesterol Calculated 68 mg/dL (<100); Sodium 139 mmol/L (135-145); Triglycerides 276 mg/dL (<150)
[2024-08-15 10:56] LABS: TSH reflex Free T4 1.62 uIU/mL (0.32-4.0)
== END 2024-08-15 08:03 | disposition home or self-care (01) ==
LOC: HO.HMGCLDS 08:02
PROVIDERS: PCP Internal Medicine; Visit Provider Internal Medicine
DX: E78.1 Pure hyperglyceridemia (principal); F84.0 Autistic disorder; F90.1 Attention-deficit hyperactivity disorder, predominantly hyperactive type; Z51.81 Encounter for therapeutic drug level monitoring; Z79.899 Other long term (current) drug therapy
CPT/HCPCS: 36415; 80048; 80061; 84443; 84450; 84460

== ENCOUNTER 2024-08-17 09:06 | Outpatient (REF) | payer OTHER, SELFPAY ==
--- NOTE | ~2024-08-17 | FL_ITS ---
EXAMINATION: XR GI SERIES CLINICAL INFORMATION: Epigastric pain COMPARISON: None available. TECHNIQUE: Routine swallow with thick barium and saltine crackers was done in upright view. She was placed supine and prone lying and images were obtained. FINDINGS: Following oral administration of thick barium there is normal propagation of bolus from the oral cavity through the pharynx, esophagus into stomach. No laryngeal penetration or aspiration seen. There is no intraluminal obstruction or extrinsic compression. On oral administration of barium coated saltine cracker there is normal oral mastication and propagation of solid food from the oral cavity through the pharynx, esophagus into stomach. There is transitional holdup in the distal esophagus due to decreased volume but subsequently cleared with thin barium. FLUOROSCOPY TIME: 20 minutes 18 seconds DOSE AREA PRODUCT: 363.8 uGy-m2 (microgray-meter squared) FL/FL upper GI series IMPRESSION: Unremarkable barium swallow examination. Electronically signed by: Efraín Rojas MD 08/17/2024 11:13 AM EDT
--- OUTSIDE RECORDS SUMMARY | 2024-08-17 09:36 | XMS_ITS | Clinical Summary ---
Author Organization [facility] Address [address] [place] [address] Care Team Providers Care Machine Rope Maker Name Role Phone Prosper Harper MD Primary [...] so, obtain the minor's consent prior to disclosure.[facility] Allergies Active Allergy Reactions Criticality Noted [...] about your child you'd like help w [facility]? Not on file 12/26/2022 Share good [...] patient's age to complete this topic [place] [place] [address] MEDICAID Care Teams Machine Rope Maker Relationship Specialty Start Date End Date Prosper Harper MD [address] [place] [address] PCP - General 03/21/20
--- OUTSIDE RECORDS SUMMARY | 2024-08-17 09:36 | XMS_ITS | Clinical Summary ---
Author Organization [facility] ity Address [address] [place] [address] Care Team Providers Care Experimental Worker Name Role Phone Unavailable Primary Care Provider [...]
--- OUTSIDE RECORDS SUMMARY | 2024-08-17 09:36 | XMS_ITS | Encounter Summary ---
Author Organization [facility] Address [address] [phone] Care Team Providers Care Claims Specialist Name Role Phone Prosper Harper MD Primary Care Provider [phone] Reason for Visit * Reason Comments Medication Refill Encounter Details Date Type Department Care Team (Late st Contact Info) Description 04/16/2021 Refill [facility] [address] [place] [address] Helga Wilcox MD [address] [place] [address] Chronic idiopathic constipation Social History Tobacco Use [...] constipation documented in this encounter Care Teams Claims Specialist Relationship Specialty Start Date End Date Prosper Harper MD [address] [place] [address] PCP - General 03/21/20 documented as of this encounter
--- OUTSIDE RECORDS SUMMARY | 2024-08-17 09:36 | XMS_ITS | Encounter Summary ---
Author Organization [facility] Address [address] [place] [address] Care Team Providers Care Hat Lacer Name Role Phone Prosper Harper MD Primary Care Provider Reason for Visit * Reason Comments Medication Refill Encounter Details Date Type Department Care Team (Late st Contact Info) Description 10/21/2021 Refill [facility] Gastroenterology, [place] [address] [place] [address] Lluvia Narvaez MD [address] [place] [phone] Chronic idiopathic constipation Social History Tobacco Use [...] constipation documented in this encounter Care Teams Hat Lacer Relationship Specialty Start Date End Date Prosper Harper MD [address] [place] [address] PCP - General 03/21/20 documented as of this encounter
--- OUTSIDE RECORDS SUMMARY | 2024-08-17 09:36 | XMS_ITS | Encounter Summary ---
Author Organization [facility] Address [address] [place] [address] Care Team Providers Care Coil Rewind Machine Operator Name Role Phone Prosper Harper MD Primary Care Provider Reason for Visit * Reason Comments Medication Refill Encounter Details Date Type Department Care Team (Late st Contact Info) Description 11/25/2021 Refill [facility] Gastroenterology, [place] [address] [place] [address] Lluvia Narvaez MD [address] [place] [address] Chronic idiopathic constipation Social History Tobacco Use [...] constipation documented in this encounter Care Teams Coil Rewind Machine Operator Relationship Specialty Start Date End Date Prosper Harper MD [address] [place] [address] PCP - General 03/21/20 documented as of this encounter
== END 2024-08-17 09:07 | disposition home or self-care (01) ==
LOC: HO.XRAY 09:06
PROVIDERS: PCP Internal Medicine; Visit Provider Internal Medicine
DX: R10.13 Epigastric pain (principal)
CPT/HCPCS: 74240

== ENCOUNTER → 2024-08-17 09:07 | Outpatient (BNV) | payer OTHER, SELFPAY | PROVIDERS: PCP Internal Medicine; Visit Provider Radiology Diagnostic Radiology | DX: R10.13 Epigastric pain (principal) | CPT/HCPCS: 74240 ==

== ENCOUNTER 2024-08-18 09:12 | Outpatient (AMB) | payer OTHER, SELFPAY ==
--- OUTSIDE RECORDS SUMMARY | 2024-08-18 09:47 | XMS_ITS | Clinical Summary ---
Author Organization [facility] ity Address [address] [place] [address] Care Team Providers Care Clinical Nursing Professor Name Role Phone Unavailable Primary Care Provider [...]
--- OUTSIDE RECORDS SUMMARY | 2024-08-18 09:47 | XMS_ITS | Encounter Summary ---
Author Organization [facility] Address [address] [phone] Care Team Providers Care Ceramic Maker Demonstrator Name Role Phone Prosper Harper MD Primary Care Provider [phone] Reason for Visit * Reason Comments Medication Refill Encounter Details Date Type Department Care Team (Late st Contact Info) Description 04/16/2021 Refill [facility] [address] [place] [address] Helga Wilcox MD [address] [place] [address] Chronic idiopathic constipation Social History Tobacco Use [...] constipation documented in this encounter Care Teams Ceramic Maker Demonstrator Relationship Specialty Start Date End Date Prosper Harper MD [address] [place] [address] PCP - General 03/21/20 documented as of this encounter
--- OUTSIDE RECORDS SUMMARY | 2024-08-18 09:47 | XMS_ITS | Encounter Summary ---
Author Organization [facility] Address [address] [place] [address] Care Team Providers Care Liquor Inspector Name Role Phone Prosper Harper MD Primary Care Provider Reason for Visit * Reason Comments Medication Refill Encounter Details Date Type Department Care Team (Late st Contact Info) Description 11/25/2021 Refill [facility] Gastroenterology, [place] [address] [place] [address] Lluvia Narvaez MD [address] [place] [address] Chronic idiopathic constipation Social History Tobacco Use [...] constipation documented in this encounter Care Teams Liquor Inspector Relationship Specialty Start Date End Date Prosper Harper MD [address] [place] [address] PCP - General 03/21/20 documented as of this encounter
--- OUTSIDE RECORDS SUMMARY | 2024-08-18 09:47 | XMS_ITS | Clinical Summary ---
Author Organization [facility] Address [address] [place] [phone] Phone Care Team Providers Care Doweling Machine Operator Name Role Phone Korey Christianson MD Primary Care Provider [phone] Allergies Active Allergy Reactions Criticality Noted Date [...] Office Communication [facility] [address] [phone] Andrew Bashir MD 06/06/2024 4:15 PM EST Office Visit [facility] [address] [address] Jessica Cash ARNP Recurrent and persistent hematuria [...] [facility] [address] [facility] [address] [place] [phone] Jessica Cash ARNP [address] [facility] [address] [place] [phone] Health Maintenance Due Date Last Done Comments Hepatitis B Vaccine (1 of 3 - 19+ 3-dose series) 02/19 Pneumococcal Vaccine: Peds ( 0 to 5 Years) and At-Risk Patients (6 to 49 Years) (1 of 2 - PCV) 02/20/2020 Influenza Vaccine (Season Ended) 2024 Insurance Medicaid [place] [facility] ([id number]) [facility] ([id number]) Care Teams Doweling Machine Operator Relationship Specialty Start Date End Date Korey Christianson MD [facility] [place] [address] PCP - General Internal Medicine 06/06/24
--- NOTE | 2024-08-18 10:15 | MHC.PC.OV ---
Vital Signs 08/18/24 10:24 Height 5 ft 11 in Weight 248 lb BMI 34.6 BP 102/70 Blood Pressure Location Rt brachial Position Sitting Respiration 15 Pulse 83 Pulse Source Pulse Oximeter Pulse Oximetry (%) 97 Oxygen Delivery Method Room Air Intake Visit Reasons: PE reschedule PER DR Ovalles Intake Note: Pt is here today her his PE Allergies environmental allergies Allergy (Intermediate, Verified 08/18/24 10:16) sinus pressure/sneezing methylphenidate [From Ritalin] Allergy (Intermediate, Verified 08/18/24 10:16) Rash Tobacco use date assessed: 08/18/24 Dental Screening Dental Screen Date: 08/18/24 Did you have a dental visit in the last 12 months?: Yes Did you have a dental problem in the last 6 months where you did not have access to dental care?: No Was dental information given to patient?: Patient has dentist [facility] Medical History (Updated 08/18/24 @ 10:59 by Brynn Christianson MD) Hepatic steatosis Impaired fasting glucose Alternating exotropia Abdominal pain Irritable bowel syndrome with constipation Eczema History of eye muscle disorder ADHD (attention deficit hyperactivity disorder), predominantly hyperactive impulsive type DMDD (disruptive mood dysregulation disorder) Autism spectrum disorder with accompanying language impairment and intellectual disability, requiring substantial support Melanocytic nevus of trunk Melanocytic nevi of scalp and neck Xerosis cutis Hypertriglyceridemia without hypercholesterolemia Autism Surgical History Hx of eye surgery H/O circumcision Hx of umbilical hernia repair Family History Other Adopted (not a blood relative) Social History Household Members Other:: mother Housing: Apartment Are you a primary post acute care nurse to a significant other at home: No Do you presently have visiting nurse or other home services: Yes (is in day program and has [employer]) Patient Tobacco Use Status: Never used Tobacco e-Cigarette/Vaping Use: Never Used Advance Directives Date on File: 10/01/21 service: No Current occupational status: student Cognitive needs: Yes Hearing needs: No Vision needs: Yes Questionnaire PHQ-9 Over the last 2 weeks, how often have you been bothered by any of the following problems? 30006 - PHQ-9 Billing: Patient declined-do not bill Source: Developed by Drs. Brian Hannah, Liz Thomas, Ananda Morse and colleagues, with an educational tigre from [employer]. Thrive Questionnaire Date Thrive assessed: 05/19/24 I am a: Patient What is your living situation today?: I have a steady place to live Within the past 12 months, did the food you bought not last and you didn't have the money to get more?: Never true Within the past 12 months, did you worry whether your food would run out before you got money to buy more?: Never true Do you have trouble paying for medicines?: No Do you have trouble getting transportation to medical appointments?: No Do you have trouble paying your heating and electricity bill?: No Do you have trouble taking care of your child, family member or friend?: No Do you have trouble with day-to-day activities such as bathing, preparing meals, shopping, managing finances, etc.?: I choose not to answer this question Are you currently unemployed and looking for a job?: I choose not to answer this question Are you interested in more education?: No Please select the resources that you would like help with: None Currently or been in a relationship where the following occur: No concerns reported THRIVE Score: 0 AUDIT C Alcohol Use Questionnaire (AUDIT-C) 1. How often do you have a drink containing alcohol?: Never Total Score: 0 KRYSTA-7 AMB Questionnaire KRYSTA-7 Date KRYSTA - 7 assessed: 05/19/23 Source: Developed by Drs. Brian Hannah, Liz Thomas, Ananda Morse and colleagues, with an educational tigre from [employer]. Physical exam (Primary Care) Vital Signs: Last Vital Signs Pulse 83 08/18/24 10:24 Resp 15 08/18/24 10:24 BP 102/70 08/18/24 10:24 Pulse Ox 97 08/18/24 10:24 Oxygen Delivery Method Room Air 08/18/24 10:24 BMI result Body Mass Index 34.6 Tobacco/Smoking Status: Tobacco use Status Tobacco use date assessed 08/18/24 08/18/24 10:17 Patient Tobacco Use Status Never used Tobacco 08/18/24 10:17 e-Cigarette/Vaping Use Never Used 08/18/24 10:17 Thrive Assessment: Date of Thrive Assessment Date Thrive assessed 05/19/24 08/18/24 10:17 Currently or been in a relationship where the following occur: No concerns reported Results AMB Hemoglobin A1c AMB Hemoglobin A1c 5.0 % Last Edit by Susana Boyer CMA on 08/18/24 11:09 Immunizations Boostrix Tdap 2.5 Lf unit-8 mcg-5 Lf/0.5 mL intramuscular syringe Performing Provider: Brynn Christianson MD Performing Location: [facility] Administered by: Susana Boyer CMA on 08/18/24 10:54 Dose Route Admin Location Dispensed Lot Number Expiration Date [facility] Copper Tapper 0.5 mL IM Right Deltoid 0.5 mL [id number] 10/21/26 37829-976-14 [employer] VIS Given Date VIS Provided VIS Publication Date 08/18/24 Single Vaccine 20 Eligibility Eligibility Date Funding Source Not [facility] Eligible 08/18/24 Private Coding Diagnoses Hypertriglyceridemia without hypercholesterolemia E78.1 Impaired fasting glucose R73.01 Hepatic steatosis K76.0 Assessment & Plan Assessment & Plan (1) Hypertriglyceridemia without hypercholesterolemia: Code(s): E78.1 - Pure hyperglyceridemia Category: Medical (2) Impaired fasting glucose: Code(s): R73.01 - Impaired fasting glucose Category: Medical (3) Hepatic steatosis: Code(s): K76.0 - Fatty (change of) liver, not elsewhere classified Category: Medical Orders: Orders TDaP Immunization Today Z23 - Encounter for immunization AMB Hemoglobin A1c Today Z13.9 - Encounter for screening, unspecified
[2024-08-18 10:24] VITALS: BP 102/70; PULSE 83; RESP 15; O2SAT 97; BMI 34.6
== END 2024-08-18 11:03 | disposition home or self-care (01) ==
LOC: HO.HMCC 09:13
PROVIDERS: PCP Internal Medicine; Visit Provider Internal Medicine
DX: Z23 Encounter for immunization (principal); Z13.9 Encounter for screening, unspecified

== ENCOUNTER → 2024-08-18 09:12 | Outpatient (BNVA) | payer OTHER, SELFPAY | PROVIDERS: PCP Internal Medicine; Visit Provider Internal Medicine | DX: Z00.00 Encounter for general adult medical examination without abnormal findings (principal); E78.1 Pure hyperglyceridemia; K58.9 Irritable bowel syndrome, unspecified; F84.0 Autistic disorder; F90.9 Attention-deficit hyperactivity disorder, unspecified type; R73.01 Impaired fasting glucose; K76.0 Fatty (change of) liver, not elsewhere classified; Z23 Encounter for immunization | CPT/HCPCS: 83036; 90471; 90715; 99212 ==

== ENCOUNTER 2024-08-29 20:01 | Observation (INO) | payer OTHER, SELFPAY ==
[2024-08-29 20:07] VITALS: BP 116/72; PULSE 82; RESP 16; TEMP 36.1; O2SAT 97; BMI 30.4
--- NOTE | 2024-08-29 20:08 | ED.GENADULT ---
HPI - General Adult General Chief complaint: General Medical Stated complaint: Took double the RX Time Seen by Provider: 08/29/24 20:33 Source: patient and family Mode of arrival: ambulatory Limitations: other (developmental delay) History of Present Illness ED Provider: MARLO MCALLISTER narrative: 24 yo male with PMH of hepatic steatosis, IBS with constipation, autism, ADHD, elevated triglycerides dosed at 4pm Fluvoxamine 100mg, clonidine 0.2mg, lithium 900mg, trazodone 200mg, fluvoxamine 50mg, Risperidone 6mg went to his dad's house and the brother forget to tell the dad he had his night meds and dad gave them again at 5pm he appears more drowsy but no other symptoms. No vomiting. MD complaint: overdose Onset (ago): hour(s) (4pm and 5pm today) Severity: mild Relieving factors: none Exacerbating factors: none Associated symptoms: denies other symptoms Treatments prior to arrival: none Related Data Home Medications ?Medication ?Instructions ?Recorded ?Confirmed alclometasone 0.05 % topical 1 appl topical QPM 06/13/21 06/16/24 ointment clonidine HCl 0.1 mg tablet 0.1 mg PO BID 06/13/21 06/16/24 clonidine HCl 0.2 mg tablet 0.2 mg PO BEDTIME 06/13/21 06/16/24 dextroamphetamine-amphetamine ER 1 cap PO QNOON 06/13/21 06/16/24 20 mg 24hr capsule,extend release risperidone 4 mg tablet 4 mg PO BID 06/13/21 06/16/24 tacrolimus 0.1 % topical ointment 1 appl topical BID PRN Skin 06/13/21 06/16/24 Irritation trazodone 150 mg tablet 150 - 300 mg PO BEDTIME PRN 06/13/21 06/16/24 Insomnia triamcinolone acetonide 0.5 % 1 appl topical BID 09/19/21 06/16/24 topical ointment dextroamphetamine-amphetamine ER 1 cap PO QAM 11/08/21 06/16/24 30 mg 24hr capsule,extend release dupilumab 300 mg/2 mL subcutaneous 300 mg subcut Q2W 03/27/22 06/16/24 pen injector (Dupixent) fluvoxamine 150 mg 150 mg PO BEDTIME 03/27/22 06/16/24 capsule,extended release 24 hr levocetirizine 5 mg tablet 5 mg PO DAILY 05/19/23 06/16/24 clonazepam 1 mg tablet 0.5 mg PO TID 06/16/24 06/16/24 lithium carbonate 150 mg capsule mg PO 08/18/24 lithium carbonate 450 mg mg PO 08/18/24 tablet,extended release Previous Rx's ?Medication ?Instructions ?Recorded fluticasone propionate 50 2 spray intranasal DAILY PRN nasal 03/13/24 mcg/actuation nasal congestion #48 grams spray,suspension Trulance 3 mg tablet (plecanatide) 3 mg PO DAILY #30 tabs 05/26/24 omeprazole 20 mg capsule,delayed 20 mg PO QAM #30 caps 08/24/24 release Allergies Allergy/AdvReac Type Severity Reaction Status Date / Time environmental allergies Allergy Intermediate sinus Verified 08/29/24 20:10 pressure/sneezing methylphenidate Allergy Intermediate Rash Verified 08/29/24 20:10 [From Ritalin] Review of Systems Review of Systems: ROS unable to be obtained due to developmental delay [facility] Past Medical History Source: old records reviewed and obtained from family Medical History Hepatic steatosis Impaired fasting glucose Alternating exotropia Abdominal pain Irritable bowel syndrome with constipation Eczema History of eye muscle disorder ADHD (attention deficit hyperactivity disorder), predominantly hyperactive impulsive type DMDD (disruptive mood dysregulation disorder) Autism spectrum disorder with accompanying language impairment and intellectual disability, requiring substantial support Melanocytic nevus of trunk Melanocytic nevi of scalp and neck Xerosis cutis Hypertriglyceridemia without hypercholesterolemia Autism Surgical History Hx of eye surgery H/O circumcision Hx of umbilical hernia repair Family History Family History Other Adopted (not a blood relative) Social History Social History Household Members Other:: mother Housing: Apartment Are you a primary doggy daycare activities director to a significant other at home: No Do you presently have visiting nurse or other home services: Yes (is in day program and has VOTING MACHINE MECHANIC) Patient Tobacco Use Status: Never used Tobacco e-Cigarette/Vaping Use: Never Used Advance Directives: Yes Advance Directives on File: Yes Advance Directives Date on File: 10/01/21 service: No Current occupational status: student Cognitive needs: Yes Hearing needs: No Vision needs: Yes Physical Exam ED Vital Signs: Vital Signs - 24 hr 08/29/24 20:07 08/29/24 20:38 08/29/24 20:39 Temperature 97 F Pulse Rate 82 74 Pulse Rate [Monitor] 79 Respiratory Rate 16 22 H Blood Pressure 116/72 112/68 Pulse Oximetry 97 96 Oxygen Delivery Method Room Air Room Air BMI result Body Mass Index 30.4 Appearance: Alert. Oriented X3. No acute distress. Eyes: Pupils equal, round and reactive to light. ENT: Pharynx normal. No fasciculations Neck: Normal inspection. Neck supple. CVS: Normal heart rate and rhythm. Pulses normal. Respiratory: No respiratory distress. Breath sounds normal. Abdomen: Soft and nontender. Skin: Skin warm and dry. Normal skin color. Normal skin turgor. Extremities: No lower extremity edema. No calf ttp Neuro: Oriented X 3. No motor deficit. No sensory deficit. CN2-12 intact. no clonus no hyperreflexia, no tremors Course Course Course Narrative: RME performed by Lulú Mancia PA-C. Patient is a 24 year old assigned male at presenting to the emergency department after an accidental overdose. Patient's mother states that the patient was given a dose of his daily medicines twice within 4 hours. Detailed physical exam and review of systems are deferred to the electrical maintenance supervisor. EKG and labs ordered. Patient placed back in the waiting room pending room availability and results. Medications Administered Generic Name Dose Route Start Last Admin Trade Name Freq PRN Reason Stop Dose Admin Lactated Ringer's 1,000 mls @ 100 mls/hr 08/29/24 21:30 08/29/24 21:34 Lr IVCONT 100 mls/hr .Q10H DEE Administration Discontinued Medications Generic Name Dose Route Start Last Admin Trade Name Freq PRN Reason Stop Dose Admin Diazepam 2.5 mg 08/30/24 00:12 08/30/24 00:18 Diazepam 10 Mg/2 Ml Cartridge IVPUSH 08/30/24 00:13 2.5 mg STAT STA Administration Enoxaparin Sodium 40 mg 08/29/24 23:00 08/30/24 00:19 Enoxaparin Sodium 40 Mg/0.4 Ml Syringe SUBCUT Not Given Q24H DEE Magnesium Sulfate 2 gm in 50 mls @ 25 mls/hr 08/29/24 21:18 08/29/24 23:55 Magnesium Sulfate/H2o IV 08/29/24 23:17 Infused ONCE ONE Infusion Potassium Chloride 20 meq 08/29/24 21:48 08/29/24 21:59 Potassium Chloride Er 20 Meq Tab.Er.Prt PO 08/29/24 21:49 20 meq ONCE ONE Administration Medical Decision Making Medical Decision Making MDM Narrative: 24 yo male with PMH of hepatic steatosis, IBS with constipation, autism, ADHD, elevated triglycerides here s/p overdose he has no symptoms but will consult poison control and follow reccs - accidental. No signs of serotonin syndrome Differential Diagnosis Differential Diagnoses: The differential diagnosis associated with the presentation includes overdose accidental Admission/Observation Consideration of admission/observation: Escalation of care including admission/observation considered admit over night as recommended by poison control llithium and EKG ordered Consult Healthcare Provider Management of the patient was discussed with: Hospitalist (will admit) and Workers Compensation Defense Attorney poison control EKG every 2 hours x 2 EKG at 4 hours repeat lithium at 1245m monitor on tele overnight Lab Data [facility] Lab Attestation statement: I reviewed the patient's lab results. 08/29/24 20:44 08/29/24 20:44 Labs: Lab Results 08/29/24 Range/Units 20:44 WBC 10.5 (4.8-10.8) X10*3/uL RBC 5.00 (4.60-5.80) X10*6/uL Hgb 14.4 (14.0-18.0) g/dl Hct 42.9 (42.0-52.0) % MCV 85.8 (80.0-98.0) fL MCH 28.8 (27.0-33.0) pg MCHC 33.6 (31.0-36.0) g/dl RDW 12.1 (11.0-16.0) % Plt Count 260 (160-400) X10*3/uL MPV 9.9 (9.4-12.4) fL Immature Gran % (Auto) 0.5 H (0.0-0.4) % Neut % (Auto) 60.4 (45-73) % Lymph % (Auto) 28.3 (20-40) % [place] % (Auto) 7.2 (2-11) % Eos % (Auto) 3.1 (0-4) % Baso % (Auto) 0.5 (0-2) % Lymph # (Auto) 3.0 (1.2-4.9) X10*3/uL [place] # (Auto) 0.8 (0.1-1.2) X10*3/uL Eos # (Auto) 0.3 (0.0-0.4) X10*3/uL Baso # (Auto) 0.1 (0.0-0.2) X10*3/uL Abs Immat Gran (auto) 0.05 H (0.00-0.03) X10*3/uL Absolute Neuts (auto) 6.3 (2.0-8.3) x10*3/uL Absolute Nucleated RBC 0.000 (0.0-0.012) X10*3/uL Nucleated RBC % (auto) 0.0 (0.0-0.2) /100WBC Sodium 141 (135-145) mmol/L Potassium 3.8 (3.3-5.1) mmol/L Chloride 108 (96-108) mmol/L Carbon Dioxide 26 (22-29) mmol/L Anion Gap 11 L (12-20) BUN 10 (9-16) mg/dL Creatinine 0.93 (0.5-1.4) mg/dL Estim Creat Clear Calc 135.1 Estimated GFR > 60 Random Glucose 118 H (60-115) mg/dL Calcium 9.5 (8.4-10.2) mg/dL Magnesium 2.1 (1.6-2.6) mg/dL Total Bilirubin 0.3 (0.0-1.0) mg/dL AST 31 (5-37) U/L ALT 48 H (0-40) U/L Alkaline Phosphatase 83 (39-117) U/L Total Protein 7.2 (6.5-8.0) g/dL Albumin 4.3 (3.5-5.0) g/dL Salicylates < 5.0 L (15-30) mg/dL Acetaminophen < 3 (<30) mcg/mL [place] 1.13 (0.60-1.20) mmol/L Independent Interpretation I performed an independent interpretation of an: EKG Interpretation: Rate: 83 Rhythm: NSR [place]: normal Normal P waves. Normal COY. Normal QRS complex. ST T wave : normal no TIGRE qTC: 479 prior studies: no acute ischemia The study has been interpreted contemporaneously by me. . Independent Historian Clinical information obtained from an independent historian. History obtained from or confirmed by: Parent External Record Review External record reviewed: Outpatient record Critical Care Time Critical Care Time Critical Care Time: Yes Total Critical Care Time: 45 Attestation: Time is exclusive of separately billable procedures. Time includes: direct patient care, patient reassessment, coordination of patient care, interpretation of data (laboratory data, pulse oximetry, arterial blood gases and chest xrays), review of patient's medical records, medical consultation and documentation of patient care. Procedures excluded from critical care time:electrocardiography. IV magnesium, medical consult Discharge Plan Discharge Clinical Impression: Overdose Qualifiers: Encounter type: initial encounter Injury intent: accidental or unintentional Qualified Code(s): T50.901A - Poisoning by unspecified drugs, medicaments and biological substances, accidental (unintentional), initial encounter Patient Disposition: Admitted As Inpatient Interventions: Admission Worksheet (ED) Last Done: 08/30/24 00:04
--- NOTE | 2024-08-29 20:15 | ECG_ITS ---
Test Reason : OVERDOSE Blood Pressure : */* mmHG Vent. Rate : 83 BPM Atrial Rate : 83 BPM P-R Int : 156 ms QRS Dur : 92 ms QT Int : 408 ms P-R-T Axes : 25 36 52 degrees QTcB Int : 479 ms Normal sinus rhythm Nonspecific T wave abnormality Prolonged QT Abnormal ECG When compared with ECG of 15-Nov-2018 21:45, Nonspecific T wave abnormality now evident in Anterior leads Referred By: Lulú Mancia Electronically Signed By: Karthik Faulkner
[2024-08-29 20:38] VITALS: BP 112/68; PULSE 74; RESP 22; O2SAT 96
[2024-08-29 20:39] VITALS: PULSE 79
--- NOTE | 2024-08-29 20:41 | PC.NURSE ---
Patient is a 24-year-old male with history of impaired fasting glucose, IBS, hypertriglyceridemia, autism spectrum disorder, ADHD who presents with his family after parents accidentally administering his night time medications twice. Patient alert and at baseline. Ccoperative with care. Placed on fish hatchery assistant and NSR noted. Respirations even and non-labored. Abdomen large soft, non-tender with positive bowel sounds. Positive pedal pulses with no edema noted.
[2024-08-29 20:51] LABS: MANUAL DIFF FLAG NO
[2024-08-29 20:53] LABS: Basophils Absolute Auto 0.1 X10*3/uL (0.0-0.2); Basophils Percent Auto 0.5 % (0-2); Eosinophils Absolute Auto 0.3 X10*3/uL (0.0-0.4); Eosinophils Percent Auto 3.1 % (0-4); Hematocrit 42.9 % (42.0-52.0); Hemoglobin 14.4 g/dl (14.0-18.0); Imm Gran Abs Auto 0.05 X10*3/uL (0.00-0.03); Imm Gran Pct Auto 0.5 % (0.0-0.4); Lymphocytes Percent Auto 28.3 % (20-40); Mean Corpuscular HGB Conc 33.6 g/dl (31.0-36.0); Mean Corpuscular Hemoglobin 28.8 pg (27.0-33.0); Mean Corpuscular Volume 85.8 fL (80.0-98.0); Mean Platelet Volume 9.9 fL (9.4-12.4); Monocytes Absolute Auto 0.8 X10*3/uL (0.1-1.2); Monocytes Percent Auto 7.2 % (2-11); Neutrophils Absolute Auto 6.3 x10*3/uL (2.0-8.3); Neutrophils Percent Auto 60.4 % (45-73); Platelet Count 260 X10*3/uL (160-400); Red Cell Distribution Width 12.1 % (11.0-16.0); White Blood Count 10.5 X10*3/uL (4.8-10.8)
[2024-08-29 21:15] LABS: Lithium 1.13 mmol/L (0.60-1.20)
[2024-08-29 21:20] LABS: Alanine Aminotransferase 48 U/L (0-40); Albumin Level 4.3 g/dL (3.5-5.0); Alkaline Phosphatase 83 U/L (39-117); Anion Gap 11 (12-20); Aspartate Amino Transferase 31 U/L (5-37); Bilirubin Total 0.3 mg/dL (0.0-1.0); Blood Urea Nitrogen 10 mg/dL (9-16); Calcium 9.5 mg/dL (8.4-10.2); Carbon Dioxide 26 mmol/L (22-29); Chloride 108 mmol/L (96-108); Creatinine Clr Calc Pharmacy 135.1; Estimated Glomerular Filt Rate > 60; Glucose Random 118 mg/dL (60-115); Magnesium 2.1 mg/dL (1.6-2.6); Potassium 3.8 mmol/L (3.3-5.1); Sodium 141 mmol/L (135-145); Total Protein 7.2 g/dL (6.5-8.0)
[2024-08-29 21:24] LABS: Acetaminophen LAB < 3 mcg/mL (<30); Salicylate < 5.0 mg/dL (15-30)
[2024-08-29] MEDS: Magnesium Sulfate/H2O 2 GM/50 ML PIGGYBACK IV (21:34)
[2024-08-29] MEDS: Lactated Ringers 1,000 ML 100 ML IVCONT (21:34)
--- NOTE | 2024-08-29 21:40 | PC.NURSE ---
poison control contacted at the request of MD madera.
[2024-08-29] MEDS: Potassium Chloride ER 20 MEQ TAB.ER.PRT PO (21:59)
--- NOTE | 2024-08-29 22:00 | ECG_ITS ---
Test Reason : OD Blood Pressure : */* mmHG Vent. Rate : 78 BPM Atrial Rate : 78 BPM P-R Int : 156 ms QRS Dur : 96 ms QT Int : 412 ms P-R-T Axes : 22 28 37 degrees QTcB Int : 469 ms Normal sinus rhythm Nonspecific T wave abnormality Prolonged QT Abnormal ECG When compared with ECG of 29-Aug-2024 20:48, No significant change was found Referred By: Annalise Polk Electronically Signed By: Karthik Faulkner
--- NOTE | 2024-08-29 22:14 | PM.IMHP ---
History of Present Illness Date of Service: 08/29/24 Chief Complaint: Accidental overdose of medications This is a 24-year-old male with pertinent history of autism spectrum disorder with ADHD, IBS with constipation, gastroesophageal reflux disease, hypertriglyceridemia, eczema who was brought to the emergency department for evaluation after accidental overdose of home medications. Patient was at his mother's house and received his evening dose of medications: Fluvoxamine 150 mg, clonidine 0.2 mg, lithium 900 mg, trazodone 200 mg, risperidone 6 mg. Patient later went to his dad's house and patient's brother forgot to tell his diet that patient had already taken his evening dose of medications. Patient's father repeated his evening dose of medications an hour later and patient was brought to the ER for accidental overdose. Patient is more lethargic than usual. No other complaints. Unable to obtain history from the patient due to autism spectrum disorder. History obtained from mother at bedside and chart review. Unable to obtain review of systems. Review of Systems Review of Systems: Yes Unobtainable due to mental condition and Unobtainable due to mental status [facility] Medical History Hepatic steatosis Impaired fasting glucose Alternating exotropia Abdominal pain Irritable bowel syndrome with constipation Eczema History of eye muscle disorder ADHD (attention deficit hyperactivity disorder), predominantly hyperactive impulsive type DMDD (disruptive mood dysregulation disorder) Autism spectrum disorder with accompanying language impairment and intellectual disability, requiring substantial support Melanocytic nevus of trunk Melanocytic nevi of scalp and neck Xerosis cutis Hypertriglyceridemia without hypercholesterolemia Autism Family History Other Adopted (not a blood relative) Surgical History Hx of eye surgery H/O circumcision Hx of umbilical hernia repair Social History Household Members Other:: mother Housing: Apartment Are you a primary housekeeper child care to a significant other at home: No Do you presently have visiting nurse or other home services: Yes (is in day program and has COMMUNICATION SKILLS INSTRUCTOR) Patient Tobacco Use Status: Never used Tobacco e-Cigarette/Vaping Use: Never Used Advance Directives: Yes Advance Directives on File: Yes Advance Directives Date on File: 10/01/21 service: No Current occupational status: student Cognitive needs: Yes Hearing needs: No Vision needs: Yes Meds Allergies Allergy/AdvReac Type Severity Reaction Status Date / Time environmental allergies Allergy Intermediate sinus Verified 08/29/24 20:10 pressure/sneezing methylphenidate Allergy Intermediate Rash Verified 08/29/24 20:10 [From Ritalin] Active Medications: Current Medications Lactated Ringer's (Lr) 1,000 mls @ 100 mls/hr IVCONT .Q10H DEE Last Admin: 08/29/24 21:34 Dose: 100 mls/hr Magnesium Sulfate (Magnesium Sulfate/H2o) 2 gm in 50 mls @ 25 mls/hr IV ONCE ONE Stop: 08/29/24 23:17 Last Admin: 08/29/24 21:34 Dose: 25 mls/hr Home Medications ?Medication ?Instructions ?Recorded ?Confirmed ?Last Taken ?Type alclometasone 0.05 % topical 1 appl topical QPM 06/13/21 06/16/24 Unknown History ointment clonidine HCl 0.1 mg tablet 0.1 mg PO BID 06/13/21 06/16/24 06/22/24 History clonidine HCl 0.2 mg tablet 0.2 mg PO BEDTIME 06/13/21 06/16/24 Unknown History dextroamphetamine-amphetamine ER 1 cap PO QNOON 06/13/21 06/16/24 Unknown History 20 mg 24hr capsule,extend release risperidone 4 mg tablet 4 mg PO BID 06/13/21 06/16/24 06/22/24 History tacrolimus 0.1 % topical ointment 1 appl topical BID PRN Skin 06/13/21 06/16/24 Unknown History Irritation trazodone 150 mg tablet 150 - 300 mg PO BEDTIME PRN 06/13/21 06/16/24 Unknown History Insomnia triamcinolone acetonide 0.5 % 1 appl topical BID 09/19/21 06/16/24 Unknown History topical ointment dextroamphetamine-amphetamine ER 1 cap PO QAM 11/08/21 06/16/24 06/22/24 History 30 mg 24hr capsule,extend release dupilumab 300 mg/2 mL subcutaneous 300 mg subcut Q2W 03/27/22 06/16/24 Unknown History pen injector (Dupixent) fluvoxamine 150 mg 150 mg PO BEDTIME 03/27/22 06/16/24 Unknown History capsule,extended release 24 hr levocetirizine 5 mg tablet 5 mg PO DAILY 05/19/23 06/16/24 Unknown History clonazepam 1 mg tablet 0.5 mg PO TID 06/16/24 06/16/24 06/22/24 History lithium carbonate 150 mg capsule mg PO 08/18/24 Unknown History lithium carbonate 450 mg mg PO 08/18/24 Unknown History tablet,extended release Physical Exam Vital Signs and Narrative: Vital Signs: Last Vital Signs Temp 97 F 08/29/24 20:07 Pulse 79 08/29/24 20:39 Resp 22 H 08/29/24 20:38 BP 112/68 08/29/24 20:38 Pulse Ox 96 08/29/24 20:38 O2 Del Method Room Air 08/29/24 20:38 BMI result Body Mass Index 30.4 Young male lying in bed in no distress Neck supple, no JVD Regular rate and rhythm, S1-S2 heard Regular breath sounds bilaterally, no wheezing or crackles appreciated Abdomen soft nontender, no guarding, no rigidity Patient is lethargic but awakens to voice and oriented to self ; no focal motor deficit Psych: Drowsy No pedal edema Results Labs 08/29/24 20:44 08/29/24 20:44 Labs: Laboratory Results - last 24 hr 08/29/24 20:44 MCV 85.8 MCH 28.8 MCHC 33.6 RDW 12.1 Plt Count 260 MPV 9.9 Immature Gran % (Auto) 0.5 H Neut % (Auto) 60.4 Lymph % (Auto) 28.3 [place] % (Auto) 7.2 Eos % (Auto) 3.1 Baso % (Auto) 0.5 Lymph # (Auto) 3.0 [place] # (Auto) 0.8 Eos # (Auto) 0.3 Baso # (Auto) 0.1 Abs Immat Gran (auto) 0.05 H Absolute Neuts (auto) 6.3 Absolute Nucleated RBC 0.000 Nucleated RBC % (auto) 0.0 Anion Gap 11 L Estim Creat Clear Calc 135.1 Estimated GFR > 60 Random Glucose 118 H Calcium 9.5 Magnesium 2.1 Total Bilirubin 0.3 AST 31 ALT 48 H Alkaline Phosphatase 83 Total Protein 7.2 Albumin 4.3 Salicylates < 5.0 L Acetaminophen < 3 [place] 1.13 Assessment and Plan (1) Overdose: Qualifiers: Encounter type: initial encounter Injury intent: accidental or unintentional Qualified Code(s): T50.901A - Poisoning by unspecified drugs, medicaments and biological substances, accidental (unintentional), initial encounter Status: Acute Plan This is a 24-year-old male with pertinent history of autism spectrum disorder with ADHD, IBS with constipation, gastroesophageal reflux disease, hypertriglyceridemia, eczema who was brought to the emergency department for evaluation after accidental overdose of home medications. #. Acute toxic encephalopathy due to accidental overdose of psychotropic medications: Will admit patient for observation on cardiac monitoring. Poison control contacted from the ER. Repeat EKG every 2 hours x2 and at 04:00. Repeat lithium level at 00:45. No signs or symptoms of serotonin syndrome. #. Gastroesophageal reflux disease: On PPI Med rec pending DVT prophylaxis: Lovenox Full code. Discussed with mother at bedside Quality Stroke Does the patient have a stroke diagnosis?: No VTE Prior VTE?: No VTE Risk Level:: Medical - moderate - high VTE Device Contraindication: Treatment Not Indicated VTE Drug Contraindication: N/A - Med Ordered
[2024-08-29 23:52] VITALS: BP 116/65; PULSE 79; RESP 18; O2SAT 95
--- NOTE | 2024-08-30 | ECG_ITS ---
Test Reason : arythmia Blood Pressure : */* mmHG Vent. Rate : 77 BPM Atrial Rate : 77 BPM P-R Int : 152 ms QRS Dur : 90 ms QT Int : 356 ms P-R-T Axes : 21 25 36 degrees QTcB Int : 402 ms Normal sinus rhythm Nonspecific T wave abnormality Abnormal ECG When compared to the previous EKG of nonspecific precordial T wave changes. Referred By: Annalise Polk Electronically Signed By: Karthik Faulkner
[2024-08-30] MEDS: diazePAM 10 MG/2 ML CARTRIDGE 2.5 MG IVPUSH (00:18)
[2024-08-30 00:57] VITALS: BP 117/66; PULSE 71; RESP 18; TEMP 36.6; O2SAT 95
[2024-08-30 01:16] LABS: Lithium 1.36 mmol/L (0.60-1.20)
--- NOTE | 2024-08-30 01:57 | PM.EVENT ---
Event Note Date of Service: 08/30/24 Event Note: Patient with lithium 1.36. Increase rate of isotonic fluid resuscitation to 200 cc an hour. Patient without nausea, vomiting, diarrhea, seizure, neuromuscular excitability like tremor/fasciculation. Closely monitor and repeat lithium level in a.m. Time Spent With Patient Time: Total time managing care of this patient today ____ minutes.
--- NOTE | 2024-08-30 03:17 | PC.NURSE ---
0317. Poison Control FURNACE COMBUSTION ANALYSTCharo called and updated on patient's blood work, VS and plan of care. Reference number [id number]. Plan is to continue treatment as prescribed and no new recommendations at this time from Poison Control.
[2024-08-30 04:00] VITALS: BP 105/58; PULSE 73; RESP 18; TEMP 36.4; O2SAT 95
--- NOTE | 2024-08-30 04:00 | ECG_ITS ---
Test Reason : OVERDOSE Blood Pressure : */* mmHG Vent. Rate : 76 BPM Atrial Rate : 76 BPM P-R Int : 156 ms QRS Dur : 88 ms QT Int : 422 ms P-R-T Axes : 33 20 38 degrees QTcB Int : 474 ms Normal sinus rhythm Normal ECG When compared with ECG of 29-Aug-2024 22:00, No significant change was found Referred By: Annalise Polk Electronically Signed By: Karthik Faulkner
[2024-08-30] MEDS: Lactated Ringers 1,000 ML 200 ML IVCONT (06:18)
[2024-08-30] MEDS: Enoxaparin Sodium 40 MG/0.4 ML SYRINGE SUBCUT (06:18)
[2024-08-30 06:24] VITALS: BMI 35.7
[2024-08-30 06:29] LABS: MANUAL DIFF FLAG NO
[2024-08-30 06:40] LABS: Basophils Percent Auto 0.4 % (0-2); Eosinophils Absolute Auto 0.2 X10*3/uL (0.0-0.4); Eosinophils Percent Auto 2.1 % (0-4); Hematocrit 41.9 % (42.0-52.0); Hemoglobin 14.2 g/dl (14.0-18.0); Imm Gran Abs Auto 0.06 X10*3/uL (0.00-0.03); Imm Gran Pct Auto 0.5 % (0.0-0.4); Lymphocytes Absolute Auto 1.9 X10*3/uL (1.2-4.9); Lymphocytes Percent Auto 17.5 % (20-40); Mean Corpuscular HGB Conc 33.9 g/dl (31.0-36.0); Mean Corpuscular Hemoglobin 28.8 pg (27.0-33.0); Mean Platelet Volume 10.3 fL (9.4-12.4); Monocytes Absolute Auto 0.7 X10*3/uL (0.1-1.2); Monocytes Percent Auto 6.3 % (2-11); Neutrophils Absolute Auto 8.1 x10*3/uL (2.0-8.3); Neutrophils Percent Auto 73.2 % (45-73); Platelet Count 224 X10*3/uL (160-400); Red Blood Count 4.93 X10*6/uL (4.60-5.80); Red Cell Distribution Width 12.2 % (11.0-16.0); White Blood Count 11.1 X10*3/uL (4.8-10.8)
[2024-08-30 06:42] LABS: Lithium 0.93 mmol/L (0.60-1.20)
[2024-08-30 06:54] LABS: Alanine Aminotransferase 45 U/L (0-40); Albumin Level 3.9 g/dL (3.5-5.0); Alkaline Phosphatase 75 U/L (39-117); Anion Gap 10 (12-20); Aspartate Amino Transferase 33 U/L (5-37); Bilirubin Total 0.3 mg/dL (0.0-1.0); Blood Urea Nitrogen 8 mg/dL (9-16); Calcium 9.4 mg/dL (8.4-10.2); Carbon Dioxide 23 mmol/L (22-29); Chloride 111 mmol/L (96-108); Creatinine Clr Calc Pharmacy 169.8; Estimated Glomerular Filt Rate > 60; Glucose Random 96 mg/dL (60-115); Potassium 4.4 mmol/L (3.3-5.1); Sodium 140 mmol/L (135-145); Total Protein 6.6 g/dL (6.5-8.0)
[2024-08-30 07:36] VITALS: BP 113/60; PULSE 66; RESP 20; TEMP 36.7; O2SAT 95
--- NOTE | 2024-08-30 08:26 | PM.DS ---
DS: Providers Provider Date of Service: 08/30/24 Date of admission: 08/29/24 22:13 Date of discharge: 08/30/24 Primary care physician: Brynn Christianson MD DS: Diagnosis Discharge Diagnosis (1) Overdose: Status: Acute DS: Summary Hospital Course Hospital Course: 24-year-old male with pertinent history of autism spectrum disorder with ADHD, IBS with constipation, gastroesophageal reflux disease, hypertriglyceridemia, eczema who was brought to the emergency department for evaluation after accidental overdose of home medications. Patient was at his mother's house and received his evening dose of medications: Fluvoxamine 150 mg, clonidine 0.2 mg, lithium 900 mg, trazodone 200 mg, risperidone 6 mg. Patient later went to his dad's house and patient's brother forgot to tell his diet that patient had already taken his evening dose of medications. Patient's father repeated his evening dose of medications an hour later and patient was brought to the ER for accidental overdose. Patient is more lethargic than usual. No other complaints. Unable to obtain history from the patient due to autism spectrum disorder. History obtained from mother at bedside and chart review. Unable to obtain review of systems. Hospital Course Admitted to telemetry where monitor failed to demonstrate any acute dysrhythmias. He was volume resuscitated with lactated Ringer's overnight. This a.m. lithium dose down to 0.93 (1.36 on admission). 0.60 -1.20 normal range. Patient is asymptomatic and back to baseline (family present at bedside). At this point he is medically acceptable for discharge and will call his PCP for repeat lithium dose. Given this is a 1 time extra dose of lithium, they have been instructed to resume his normal lithium dosing and call PCP for repeat level as deemed fit. Time Attestation Discharge Coordination Time (in mins): 35 Quality: Safe Use of Opioids Does Pt have an Active Cancer Diagnosis on the Problem List?: No Quality: Stroke Does the patient have a stroke diagnosis?: No Physical Exam Vital Signs: Vital Signs: Last Vital Signs Temp 98.1 F 08/30/24 07:36 Pulse 66 08/30/24 07:36 Resp 20 08/30/24 07:36 BP 113/60 08/30/24 07:36 Pulse Ox 95 08/30/24 07:36 O2 Del Method Room Air 08/30/24 07:36 BMI result Body Mass Index 35.7 Const: Other: Awake alert no acute distress Resp: Other: Clear to auscultation bilaterally no rales rhonchi or wheezes Cardio: Other: No S4; positive S1-S2; no S3 murmurs rubs or gallops GI: Other: Soft nontender nondistended normoactive bowel sounds Neuro: Other: Cranial nerves 2-12 grossly intact as tested. Motor is 5/5 all extremities. Sensation is intact. Cognition at baseline (per family) Extrem: Other: No edema bilaterally DS: Data Data Completed and Pending Labs on day of discharge: Laboratory Results - last 24 hr 08/29/24 08/30/24 08/30/24 20:44 01:05 06:22 WBC 10.5 11.1 H RBC 5.00 4.93 Hgb 14.4 14.2 Hct 42.9 41.9 L MCV 85.8 85.0 MCH 28.8 28.8 MCHC 33.6 33.9 RDW 12.1 12.2 Plt Count 260 224 MPV 9.9 10.3 Immature Gran % (Auto) 0.5 H 0.5 H Neut % (Auto) 60.4 73.2 H Lymph % (Auto) 28.3 17.5 L [place] % (Auto) 7.2 6.3 Eos % (Auto) 3.1 2.1 Baso % (Auto) 0.5 0.4 Lymph # (Auto) 3.0 1.9 [place] # (Auto) 0.8 0.7 Eos # (Auto) 0.3 0.2 Baso # (Auto) 0.1 0.0 Abs Immat Gran (auto) 0.05 H 0.06 H Absolute Neuts (auto) 6.3 8.1 Absolute Nucleated RBC 0.000 0.000 Nucleated RBC % (auto) 0.0 0.0 Sodium 141 140 Potassium 3.8 4.4 Chloride 108 111 H Carbon Dioxide 26 23 Anion Gap 11 L 10 L BUN 10 8 L Creatinine 0.93 0.80 Estim Creat Clear Calc 135.1 169.8 Estimated GFR > 60 > 60 Random Glucose 118 H 96 Calcium 9.5 9.4 Magnesium 2.1 Total Bilirubin 0.3 0.3 AST 31 33 ALT 48 H 45 H Alkaline Phosphatase 83 75 Total Protein 7.2 6.6 Albumin 4.3 3.9 Salicylates < 5.0 L Acetaminophen < 3 [place] 1.13 1.36 H 0.93 Discharge Plan Discharge Anticipated Discharge Date/Time: 08/30/24 08:20 Patient Disposition: Home, Self-Care Discharge Diagnosis: Accidental lithium overdose Referrals: Brynn Christianson MD [Primary Care Provider] - 1 Week Discharge Medications: Continued fluticasone propionate 50 mcg/actuation spray,suspension 2 spray intranasal DAILY PRN (Reason: nasal congestion) Qty: 48 1RF omeprazole 20 mg capsule,delayed release(DR/EC) 20 mg PO DAILY@0630 clonazepam 1 mg tablet 0.5 mg PO TID clonidine HCl 0.1 mg tablet 0.1 mg PO BID risperidone 4 mg tablet 4 mg PO BID dextroamphetamine-amphetamine 20 mg capsule,extended release 24hr 1 cap PO QNOON trazodone 150 mg tablet 150 - 300 mg PO BEDTIME PRN (Reason: Insomnia) clonidine HCl 0.2 mg tablet 0.2 mg PO BEDTIME alclometasone 0.05 % ointment 1 appl topical QPM tacrolimus 0.1 % ointment 1 appl topical BID PRN (Reason: Skin Irritation) levocetirizine 5 mg tablet 5 mg PO DAILY triamcinolone acetonide 0.5 % ointment 1 appl topical BID dextroamphetamine-amphetamine 30 mg capsule,extended release 24hr 1 cap PO QAM Dupixent Pen 300 mg/2 mL pen injector 300 mg subcut Q2W fluvoxamine 150 mg capsule,extended release 24hr 150 mg PO BEDTIME lithium carbonate 450 mg tablet extended release PO lithium carbonate 150 mg capsule PO Trulance 3 mg tablet 3 mg PO DAILY Qty: 30 0RF Discharge Orders: Discharge Order (Routine); Ordered 08/30/24 Ordered By: Jose Rao Diet: Advance to usual diet Activity on Discharge: As tolerated Stand Alone Forms: Patient Portal Discharge page Print Language: Lithuanian Care Plan Goals: Resume all medicines as taken prior to the hospital including lithium dosing at bedtime. Health Concerns: Message left with Dr. Christianson's office. Call them in a.m. or later today to arrange for repeat lab draw prior to the 3 month interval usually half. Plan of Treatment: Continue follow up appointments as scheduled previously. There is no need for an urgent appointment however Dominic we will need the labs. Assessment: See discharge summary
--- NOTE | 2024-08-30 09:01 | PHA.MEDREC ---
Addendum entered by Sj Rm 08/30/24 12:29: Patient mother confirmed patient is taking Trulance 3mg and stated the pt was getting that at [facility] on [address]; I called [facility] and they confirmed the patient has never filled that with them, stating they had received a script for it back in May, was waiting for pt approval before filling but never received it and they never filled it. Addendum entered by Sj Rm 08/30/24 11:29: Pt mother confirmed pt is taking Clonazepam 1mg taking 1/2 tab TID instead of 1mg BID now. Pt mother also confirmed the Risperidone 0.4mg tab is given twice a day and not given 1 am and 1.5 at bedtime anymore. Original Note: Pharmacy Consult ? Medication Reconciliation Pharmacy has completed the medication reconciliation. Spoke with mother at bedside and she was able to confirm the pt medications. She confirmed the patient gets Dupixent every 2 weeks and confirmed he was due for it yesterday, but didn't get to take it. She confirmed the patient is taking the [place] Carbonate 150mg tab once a day at noon and 450mg tab 2 tabs (900mg) at bedtime.
--- NOTE | 2024-08-30 09:34 | MHC.CM.PN ---
[facility] 08/30/24 DELIVERED TO PT'S CO-GUARDIAN MOM ANGELINE AT BEDSIDE, PT'S FATHER/COGUARDIAN ALSO PRESENT, PT ANSWERS SOME QUESTIONS HOWEVER ANGELINE ANSWERS MAJORITY, ANGELINE REPORTS PT IS INDEP, DENIES USE OF DME, HAS DDS & [facility] SERVICES, ALSO ATTENDS A SERVICE NET AY RPOGRAM THU-THURSDAY, PT STAYS WITH ANGELINE DURING THE WEEK AND GOES TO HIS DAD EMILI'S HOME ON WEEKENDS. PT VERIFIES PCP IS DR. SETH AND COPY OF [facility] ON FILE. PT DISCHARGING TODAY W/RESUMP OF PREVIOUS SERVICES, FAMILY AT BEDSIDE FOR TRANSPORT
== END 2024-08-30 09:30 | disposition home or self-care (01) ==
LOC: HO.ED 22:07 → HO.EDOVER 22:18 → HO.IMC 23:41
PROVIDERS: Physician Assistant Medical; Admitting Provider Student in an Organized Health Care Education/Training Program; Emergency Provider Emergency Medicine; PCP Internal Medicine; Visit Provider Hospitalist
DX: T56.891A Toxic effect of other metals, accidental (unintentional), initial encounter (principal); R40.0 Somnolence; Y92.009 Unspecified place in unspecified non-institutional (private) residence as the place of occurrence of the external cause; T43.91XA Poisoning by unspecified psychotropic drug, accidental (unintentional), initial encounter; G92.8 Other toxic encephalopathy; I49.9 Cardiac arrhythmia, unspecified; F84.0 Autistic disorder; F34.81 Disruptive mood dysregulation disorder; F79 Unspecified intellectual disabilities; F90.9 Attention-deficit hyperactivity disorder, unspecified type; K58.1 Irritable bowel syndrome with constipation; K76.0 Fatty (change of) liver, not elsewhere classified; E78.1 Pure hyperglyceridemia; K21.9 Gastro-esophageal reflux disease without esophagitis; Z79.899 Other long term (current) drug therapy
CPT/HCPCS: 36415; 80053; 80143; 80178; 80179; 83735; 85025; 93005; 96361; 96365; 96366; 96372; 96375; 99222; 99285; J1650; J3360; J3475; J7120

== ENCOUNTER → 2024-08-29 20:15 | Outpatient (BNV) | payer OTHER, SELFPAY | PROVIDERS: Admitting Provider Student in an Organized Health Care Education/Training Program; Emergency Provider Emergency Medicine; PCP Internal Medicine; Visit Provider Internal Medicine Cardiovascular Disease | DX: R94.31 Abnormal electrocardiogram [ECG] [EKG] (principal); T50.901A Poisoning by unspecified drugs, medicaments and biological substances, accidental (unintentional), initial encounter | CPT/HCPCS: 93010 ==

== ENCOUNTER 2024-08-29 22:13 | Outpatient (BNV) | payer OTHER, SELFPAY | END 2024-08-30 04:00 | PROVIDERS: Admitting Provider Student in an Organized Health Care Education/Training Program; Emergency Provider Emergency Medicine; PCP Internal Medicine; Visit Provider Internal Medicine Cardiovascular Disease | DX: R94.31 Abnormal electrocardiogram [ECG] [EKG] (principal); I49.9 Cardiac arrhythmia, unspecified; T50.901A Poisoning by unspecified drugs, medicaments and biological substances, accidental (unintentional), initial encounter | CPT/HCPCS: 93010 ==

== ENCOUNTER → 2024-08-29 22:13 | Outpatient (BNV) | payer OTHER, SELFPAY | PROVIDERS: Admitting Provider Student in an Organized Health Care Education/Training Program; Emergency Provider Emergency Medicine; PCP Internal Medicine; Visit Provider Student in an Organized Health Care Education/Training Program | DX: T50.901A Poisoning by unspecified drugs, medicaments and biological substances, accidental (unintentional), initial encounter (principal) | CPT/HCPCS: 99222; 99239; 99499 ==

== ENCOUNTER 2024-09-21 07:53 | Outpatient (REF) | payer OTHER, SELFPAY ==
--- OUTSIDE RECORDS SUMMARY | 2024-09-21 07:57 | XMS_ITS | Clinical Summary ---
Author Organization [facility] Address [address] [address] Phone Care Team Providers Care Manual Writer Name Role Phone Korey Christianson MD Primary Care Provider [phone] Allergies Active Allergy Reactions Criticality Noted Date [...] Visit [facility] [address] [facility] [address] [place] [address] Jessica Cash ARNP [address] [phone] Health Maintenance Due Date Last Done Comments Hepatitis B Vaccine (1 of 3 - 19+ 3-dose series) 02/19 Pneumococcal Vaccine: Peds ( 0 to 5 Years) and At-Risk Patients (6 to 49 Years) (1 of 2 - PCV) 02/20/2020 Influenza Vaccine (Season Ended) [address] [place] [address] ([id number]) [facility] ([id number]) DASHAWN CARDOZA [id number] Care Teams Manual Writer Relationship Specialty Start Date End Date Korey Christianson MD [address] [place] [id number] PCP - General Internal Medicine 06/06/24
[2024-09-21 08:49] LABS: Lithium 0.57 mmol/L (0.60-1.20)
[2024-09-21 09:03] LABS: Alanine Aminotransferase 61 U/L (0-40); Albumin Level 4.7 g/dL (3.5-5.0); Alkaline Phosphatase 84 U/L (39-117); Anion Gap 12 (12-20); Aspartate Amino Transferase 41 U/L (5-37); Bilirubin Total 0.5 mg/dL (0.0-1.0); Blood Urea Nitrogen 10 mg/dL (9-16); Calcium 10.2 mg/dL (8.4-10.2); Carbon Dioxide 27 mmol/L (22-29); Chloride 108 mmol/L (96-108); Estimated Glomerular Filt Rate > 60; Glucose Random 96 mg/dL (60-115); Potassium 4.6 mmol/L (3.3-5.1); Sodium 142 mmol/L (135-145); Total Protein 7.2 g/dL (6.5-8.0)
[2024-09-21 09:21] LABS: TSH reflex Free T4 2.31 uIU/mL (0.32-4.0); Thyroid Stimulating Hormone 2.31 uIU/mL (0.32-4.0)
== END 2024-09-21 07:54 | disposition home or self-care (01) ==
LOC: HO.LAB 07:53
PROVIDERS: PCP Internal Medicine; Visit Provider Registered Nurse
DX: Z79.899 Other long term (current) drug therapy (principal)
CPT/HCPCS: 36415; 80053; 80178; 84443